=== PATIENT | male | born 1965 | race Caucasian/White ===

== ENCOUNTER 2017-01-28 07:23 | Day surgery (SDC) | payer OTHER ==
--- NOTE | 2017-01-18 16:23 | HP ---
CC: Dr[facility]; Dr. Shrestha at [facility]. PREOPERATIVE HISTORY AND PHYSICAL: DATE OF ADMISSION: This patient is scheduled for same day surgery admission by Dr. Palomo on 01/28/17. DATE OF PREOPERATIVE HISTORY AND PHYSICAL EXAMINATION: 01/18/17. ATTENDING SURGEON: Dr. Donato Palomo, (dictated by Nancy Headley NP). CHIEF COMPLAINT: Left inguinal hernia. HISTORY OF PRESENT ILLNESS: The patient is a 51-year-old obese male evaluated by Dr. Palomo for a longstanding left inguinal hernia. The patient had seen Dr. Tsang in the fall of 2015, but requi red cardiac evaluation which included a cardiac catheterization which was normal. He has now been c leared medically and is ready for surgery. The patient never noted a bulge in the left groin, but h as had a persistent left groin discomfort. Dr. Palomo ordered an ultrasound which did not reveal any testicular abnormalities, but the findings were consistent with left inguinal hernia extending towards the scrotum. The patient denies any nausea or vomiting or change in bladder or bowel habits. Dr. Palomo has examined the patient and notes a fullness in the left groin and left hemiscrotum just superior to the testicle that is nontender and nonreducible; the right groin has a well- heale d incision status post open right inguinal hernia repair many years ago. Dr. Palomo has discusse d the findings with the patient and has recommended open repair of the left inguinal hernia with [facility] h as a same day surgery procedure and has described the nature of the surgical procedure, the ration delaney for the procedure, the relevant risks and benefits and today I reviewed the expected postoperati ve care and recovery. The patient has had a chance to ask questions and stated that he understands the information and is satisfied with the answers given to his questions. He will sign surgical con sent on the day of surgery. PAST MEDICAL HISTORY: Significant for type 2 diabetes; obesity; COPD; hypertension; obstructive sle ep apnea requiring CPAP; GERD; chronic back, bilateral arms and bilateral leg pain and he is followe d in the pain clinic. PAST SURGICAL HISTORY: Open right inguinal hernia repair around 1990, appendectomy around 02/27 and was hospitalized for 3 weeks postoperatively. MEDICATIONS: 1. Glipizide 5 mg p.o. b.i.d. 2. Metformin extended release 500 mg 3 tablets daily. 3. Diltiazem ER 60 mg p.o. b.i.d. 4. Singulair 10 mg p.o. daily in the evening. 5. Gabapentin 300 mg 2 tablets 4 times a day. 6. Ventolin inhaler 1 to 2 puffs 4 times a day p.r.n. 7. Fluticasone inhaled 2 sprays daily into each nostril. 8. Senna laxative 1 tablet daily. 9. Wellbutrin XL 300 mg p.o. daily. 10. Triamterene/hydrochlorothiazide 37.5/25 p.o. daily. 11. Morphine sulfate 15 mg p.o. b.i.d. 12. Oxycodone/acetaminophen 10/325 mg 1 tablet p.o. 4 times a day. 13. Meloxicam 7.5 mg p.o. daily. ALLERGIES: No known drug allergies. FAMILY HISTORY: Mother alive and currently well, with a history of brain aneurysm. Father with a history of congestive heart failure. Sister alive with a history of what he thinks was kidne y cancer. Brother from sepsis. No known anesthesia complications, bleeding tendencies or clotting disorders in the family. SOCIAL HISTORY: He is and lives alone and is unemployed and is seeking disability. He is a former smoker and quit 2 years ago after a [id number] history. He denies the use of alcohol sin 2005 and denies the use of other substances. REVIEW OF SYSTEMS: Constitutional: No recent illnesses, no change in weight. Respiratory: Diagnos ed with sleep apnea and uses CPAP; is followed by Dr. Crump for COPD. No previous anesthesia compl ications. Cardiac: Denies any recent chest pain or chest pressure or palpitations. He underwent c ardiac catheterization by Dr. Gonzales, 06/30/16, and there was no significant coronary artery disease , ejection fraction 60%. He denies any history of deep vein thrombosis or pulmonary embolism. Alvarado rointestinal: No chronic constipation or diarrhea. No nausea or vomiting; he does have a history o f a bleeding duodenal ulcer in 1995 requiring blood transfusions and an admission to the intensive c are unit. No recurrence. Genitourinary: Denies dysuria. Musculoskeletal: He has chronic back mariam n, bilateral arm pain and bilateral leg pain and is followed at the pain clinic. Neurologic: No his tory of seizure disorder. Endocrine: Type 2 diabetes, fingerstick blood sugar typically around 118 to 130, but it has been as high as 200. Hemoglobin A1c 6.9. PHYSICAL EXAMINATION GENERAL SURVEY: The patient is a 51-year-old obese male, well developed, in no acute distress. VITAL SIGNS: Height 68 inches, weight 275 pounds, body mass index 41.8. Blood pressure 142/80, pul se 78 and regular, respiratory rate 18, temperature 98.7 tympanic. HEENT: Benign. NECK: Supple. No cervical lymphadenopathy. No thyromegaly. LUNGS: Breath sounds bilaterally clear and equal. HEART: Regular rate and rhythm. No murmurs or rubs appreciated. ABDOMEN: Active bowel sounds, soft, obese, nontender throughout. Well-healed lower midline incisio n and right inguinal incision. Inguinal exam as done by Dr. Palomo reveals a bulge in the left i nguinal region that extends down into the scrotum and is reducible lying in the supine position. No right inguinal hernia. No other obvious masses or ventral hernias. GENITALIA: Scrotum as examined by Dr. Palomo, no testicular masses. BACK: No CVA tenderness. EXTREMITIES: Warm without edema or skin ulceration. RECTAL: Exam deferred. NEUROLOGIC: Alert and oriented x3. Steady gait. SKIN: Warm, dry and intact. IMPRESSION: Left inguinal hernia. PLAN: Same day surgery admission to Dr. Palomo's service on 01/28/17 for open repair of left inguinal hernia with mesh. NANCY HEADLEY, DIRECTOR OF ONCOLOGY [id number]/[facility] #: [id number]
[~2017-01-28 07:23] MED LIST: Buffered Lidocaine 0.9% SYRIN* 5 ML/SYR SYRINGE INTRADERM ONE; Buffered Lidocaine 0.9% SYRIN* 5 ML/SYR SYRINGE ONE; Famotidine IV* 10 MG/ML 2 ML (20 mg) IV ONE; Famotidine IV* 10 MG/ML 2 ML (20 mg) ONE; Morphine INJ* 2 MG/ML 1 ML SYRINGE IV PRN; PROCHLORPERAZINE INJ 5 MG/ML 2 ML VIAL IV PRN; ceFAZolin 1 GM in Dextrose (*) 1 GM/50 ML BAG IVPB ONE; ceFAZolin 2 GM PREMIX(*) 2 GM/50 ML BAG IVPB ONE; oxyCODONE/Acetamin 5/325 MG* TAB PO PRN
[2017-01-28] MEDS ORDERED: KETAMINE HCL* 50 MG/ML 10 ML VIAL ONE (09:01)
[2017-01-28] MEDS ORDERED: fentaNYL* 50 MCG/ML 2 ML VIAL (100 MCG VIAL) ONE ×3 (09:01→11:56)
[2017-01-28] MEDS ORDERED: Midazolam* 1 MG/ML 5 ML VIAL (5 MG) ONE (09:01)
[2017-01-28] MEDS ORDERED: Lidocaine 1% INJ* 10 MG/ML 30 ML SDV ONE (09:17)
[2017-01-28] MEDS ORDERED: Bupivacaine 0.5% W/EPI SDV* 10 ML VIAL INJ ONE ×2 (09:17→11:06)
[2017-01-28] MEDS ORDERED: Ondansetron INJ* 2 MG/ML VIAL ONE (10:08)
[2017-01-28] MEDS ORDERED: Lidocaine 2% PF * 5 ML VIAL ONE (10:08)
[2017-01-28] MEDS ORDERED: Ketorolac INJ* 30 MG/ML 1 ML VIAL ONE (10:08)
[2017-01-28] MEDS ORDERED: Propofol* 10 MG/ML 20 ML BTL IV PUSH ONE (10:08)
[2017-01-28] MEDS ORDERED: PROCHLORPERAZINE INJ 5 MG/ML 2 ML VIAL ONE (10:08)
[2017-01-28] MEDS ORDERED: Metoprolol Tartrate IV* 1 MG/ML 5 ML VIAL ONE (11:09)
[2017-01-28] MEDS ORDERED: oxyCODONE/Acetamin 5/325 MG* TAB PO PRN (11:33)
[2017-01-28] MEDS ORDERED: hydrALAZINE IV* 20 MG/ML VIAL IV SLOW PU ONE (11:47)
[2017-01-28] MEDS ORDERED: hydrALAZINE IV* 20 MG/ML VIAL ONE (11:49)
[2017-01-28] MEDS ORDERED: oxyCODONE/Acetamin 5/325 MG* TAB ONE (11:56)
[2017-01-28] MEDS: fentaNYL* 50 MCG/ML 2 ML VIAL (100 MCG VIAL) IV PRN ×2 (11:56→12:05)
[2017-01-28 13:12] VITALS: BP 153/81
--- NOTE | 2017-01-29 06:28 | OP ---
CC: [facility] OPERATIVE REPORT: DATE OF OPERATION: 01/28/17 DATE OF : 65 SURGEON: Donato Palomo MD KAIAWHINA: SAMSON Dill ANESTHESIOLOGIST: Dr. Khan. ANESTHESIA: General with local. PRE-OP DIAGNOSIS: Left inguinal hernia. POST-OP DIAGNOSIS: Left indirect inguinal hernia. OPERATIVE PROCEDURE: Open repair with Covidien ProGrip mesh of a left indirect inguinal hernia. ESTIMATED BLOOD LOSS: Minimal. WOUND CLASSIFICATION: I. COMPLICATIONS: None. DRAINS: None. SPECIMENS: None. FINDINGS: Patient had a large indirect inguinal hernia with a large lipoma extending through the in ternal ring. This extended down into the upper portion of the scrotum. There was no evidence of an indirect hernia sac. The direct space appeared to be intact. DESCRIPTION OF PROCEDURE: Written informed consent was obtained, the left groin was marked with ind elible ink and preoperative antibiotics were administered. The patient was taken to the operating r oom and placed in the supine position. Sequential compression devices and a warming blanket were gregory lied. General anesthesia was administered, and the right groin and lower abdomen were prepped and d raped in the usual sterile fashion. Time-out verification was completed. 0.25% Marcaine mixed with 1% lidocaine was then infiltrated in the left groin. An oblique incision several fingerbreadths above the inguinal crease was made, carried down through Romain's fascia. It should be noted that due to the patient's morbid obesity, this incision was somewhat longer than th e usual standard inguinal repair. Romain's fascia was divided. We were able to identify the externa l oblique aponeurosis down to the external ring. The aponeurosis was opened in the direction of its fibers and there appeared to be a rather large spermatic cord with what appeared to be containing h ernia or fat at a minimum. This spermatic cord was then encircled with 1/4-inch Hagaman drain at th e pubic tubercle. We were then able to dissect the cord off the direct space floor. The direct space appeared to be i ntact without evidence of hernia. Once we had freed up the cord structures back up in the internal ring, it was obvious that there was quite large amount of fat in the cord, and we were able to ident kim a rather large lipoma that extended down into the upper part of the scrotum and this was separat ed from the structures of the cord with care to prevent injury to these vital structures up into the internal ring, which was somewhat patulous. Once I had assured myself that this was simply a lipom a, this was then divided and ligated with 0 Polysorb suture, and the lipoma was transected. I did n ot send this for specimen. Next, a very careful evaluation of the spermatic cord was performed. I identified no indirect ingui nal hernia sac, however, but I feel what was felt on exam and what was causing his symptoms was the large lipoma protruding through the internal ring. Likewise, there was no direct space hernia. Next, the ProGrip Covidien mesh was then inserted and sutured to the pubic tubercle medially, the co njoined tendon superiorly and the musculature laterally with interrupted 0 Polysorb suture. It was secured to the inguinal ligament inferiorly with a running 0 Polysorb suture. The mesh sat nicely without wrinkling or tension and reconstructed the internal ring nicely. Hemostasis was assured. Additional Marcaine was infiltrated. The external oblique aponeurosis was then closed with running 0 Polysorb suture. The Romain's fascia was closed with interrupted 3-0 Sacha ysorb suture. The skin was approximated with subcuticular 4-0 Polysorb suture[address] Steri-Strips and st erile dressings were applied. The patient tolerated the procedure well and was taken to the recovery room in stable condition. [id number]/[facility] #: [id number]
== END 2017-01-28 13:14 | disposition home or self-care (01) ==
LOC: OR 07:23
PROVIDERS: ATTEND Surgery
DX: K40.90 Unilateral inguinal hernia, without obstruction or gangrene, not specified as recurrent (principal); E11.9 Type 2 diabetes mellitus without complications; Z79.84 Long term (current) use of oral hypoglycemic drugs; J44.9 Chronic obstructive pulmonary disease, unspecified; I10 Essential (primary) hypertension; G47.33 Obstructive sleep apnea (adult) (pediatric); E66.9 Obesity, unspecified
CPT/HCPCS: A9270-GY; J0360; J0690; J0780; J1885; J2001; J2250; J2405; J2704; J3010

== ENCOUNTER → 2017-01-31 08:55 | Emergency (ER) | payer OTHER ==
[~2017-01-31 08:55] MED LIST changes: -Buffered Lidocaine 0.9% SYRIN* 5 ML/SYR SYRINGE INTRADERM ONE; -Buffered Lidocaine 0.9% SYRIN* 5 ML/SYR SYRINGE ONE; -Famotidine IV* 10 MG/ML 2 ML (20 mg) IV ONE; -Famotidine IV* 10 MG/ML 2 ML (20 mg) ONE; +Ketorolac INJ* 30 MG/ML 1 ML VIAL IV PUSH ONE; -Morphine INJ* 2 MG/ML 1 ML SYRINGE IV PRN; +Morphine INJ* 4 MG/ML 1 ML SYRINGE IV ONE; +Morphine INJ* 4 MG/ML 1 ML SYRINGE SUBCUT ONE; +Ondansetron INJ* 2 MG/ML VIAL IV ONE; -PROCHLORPERAZINE INJ 5 MG/ML 2 ML VIAL IV PRN; -ceFAZolin 1 GM in Dextrose (*) 1 GM/50 ML BAG IVPB ONE; -ceFAZolin 2 GM PREMIX(*) 2 GM/50 ML BAG IVPB ONE; -oxyCODONE/Acetamin 5/325 MG* TAB PO PRN
[2017-01-31 11:26] VITALS: BP 159/83
--- NOTE | 2017-02-01 16:25 | CONS ---
EMERGENCY ROOM CONSULTATION REPORT: DATE OF CONSULT: 01/31/17 LOCATION: The patient was seen in the emergency room. REFERRING PROVIDER: Dr. Jones, emergency room physician. REASON FOR CONSULT: Discomfort at recent site of the left inguinal hernia repair. HISTORY OF PRESENT ILLNESS: Mr. Sekou Berry is a 51-year-old gentleman well known to me who just underwent an open repair of a left inguinal hernia on 01/28/17. This was done as an outpatient. He was discharged to home. He takes oral morphine as well as Percocet for chronic low back pain. He was not given additional narcotic for pain. He had been doing well at home. Apparently, he developed increased discomfort last night. He had called the office and was to be seen for followup. Today, however, the pain was increasing , he presented to the emergency room and was seen by Dr. Jones. Surgical consultation was obtained. He further states he has had no fevers. He has been eating well. He has been voiding without difficulty. His bowels have been working. He has had no nausea , vomiting, shakes, or chills. He has noted no abdominal distention. PHYSICAL EXAM: He is afebrile. Heart rate is in the 90s. General: He is a morbidly obese male, in no apparent distress. He is awake, alert, and conversive. His abdomen is soft, nondistended. He has normoactive bowel sounds throughout. He has left groin leak incision. This appeared to be intact. There was some skin irritation from this tape and some ecchymosis medial. There is minimal scrotal swelling. No evidence of hernia recurrence. There is no evidence of abscess, cellulitis, or infection. IMPRESSION AND PLAN: Status post repair of a left inguinal hernia in a morbidly obese gentleman with chronic pain, already he had narcotics. I do not believe that there is an infection, recurrence or acute surgical complication at play here. I discussed this with him and I assured him that he is recovering well and there is no evidence of recurrence, which I think he was quite concerned about today. We will give him some intravenous morphine as well as some IV Toradol as he has not taken Motrin over the last 12 hours. He will be discharged home from the emergency room. He has an appointment to see us in the office next week, but he is instructed to call if should he develop any problems here or have any questions in the meantime. [id number]/[facility] #: [id number] MARY
--- NOTE | 2017-02-01 19:09 | ED ---
Galileo Greer Alfonso, scribed for Ramesh Jones MD on 01/31/17 at 0920 . GI/ HPI - HPI Summary HPI Summary: This patient is a 51 year old M presenting to [facility] accompanied by female with a chief complaint of left testicular pain since this morning. The CC is described as sore. Pt had an inguinal hernia repair three days ago. Pt rates the pain 6/10 in severity. Symptoms aggravated and alleviated by nothing. Pt denies fever, and chills. PMHx of DM and HTN. - History of Current Complaint Chief Complaint: EDAbdPain Time Seen by Provider: 01/31/17 09:09 Stated Complaint: LT SIDED GROIN PAIN Hx Obtained From: Patient Onset/Duration: Started Hours Ago - This morning, Still Present Timing: Constant Severity: Moderate Current Severity: Moderate Pain Intensity: 6 Additional Locations for Males: Testicles - Left Pain Characteristics: Other: - Sore Associated Signs and Symptoms: Negative: Fever, Chills - Additional Pertinent History Primary Care Physician: JOAQUÍN - Allergy/Home Medications Allergies/Adverse Reactions: Allergies Allergy/AdvReac Type Severity Reaction Status Date / Time No Known Allergies Allergy Verified 01/28/17 07:36 PMH/Surg Hx/FS Hx/Imm Hx Endocrine/Hematology History: Reports: Hx Diabetes - TYPE II, controlled with medication Cardiovascular History: Reports: Hx Angina, Hx Hypertension - controlled with medication, Other Cardiovascular Problems/Disorders Denies: Hx Coronary Artery Disease, Hx Hypercholesterolemia, Hx Myocardial Infarction, Hx Pacemaker/ICD, Hx Valvular Heart Disease Respiratory History: Reports: Hx Asthma - uses prn inhaler, Hx Chronic Bronchitis, Hx Chronic Obstructive Pulmonary Disease (COPD), Hx Pneumonia, Hx Sleep Apnea GI History: Reports: Hx Gastroesophageal Reflux Disease, Hx Hiatal Hernia - hx of,, Hx Ulcer - hx of, "yrs ago", bleeding ulcer, Musculoskeletal History: Reports: Hx Back Problems, Hx Tendonitis - wrists, elbows Sensory History: Reports: Hx Contacts or Glasses - wears glasses, Hx Hearing Problem Denies: Hx Cataracts, Hx Glaucoma, Hx Hearing Aid - will be getting these February 06, 2017 Opthamlomology History: Reports: Hx Contacts or Glasses - wears glasses Denies: Hx Cataracts, Hx Glaucoma Neurological History: Reports: Hx Migraine - hx of, last migraine over 10 yrs ago, Hx Nerve Disease - Hx of Polyneuropathy, Other Neuro Impairments/Disorders - recent hospitalization for viral menigitis 2015 Psychiatric History: Reports: Hx Depression - controlled with medication Denies: Hx Panic Disorder - Surgical History Surgery Procedure, Year, and Place: HERNIA REPAIR, 1990. APPENDECTOMY(BURST APPENDIX WITH FOLLOW UP THAT CONTAMINATED PERITONIUM) . cardiac cath 2015. right wrist cyst removed . Hx Anesthesia Reactions: No Infectious Disease History: Reports: Hx Shingles, History Other Infectious Disease - Meningitis Denies: Traveled Outside the [place] in Last 30 Days - Family History Known Family History: Positive: Cardiac Disease - Social History Alcohol Use: None Alcohol Amount: QUIT IN 2005 Substance Use Type: Reports: None Substance Use Comment - Amount & Last Used: OXYCODONE Hx Tobacco Use: Yes Smoking Status (MU): Former Smoker Type: Cigarettes Amount Used/How Often: smoked for approx 40 yrs, 2 ppd Review of Systems Negative: Fever, Chills Positive: other - Positive left testicular pain All Other Systems Reviewed And Are Negative: Yes Physical Exam - Summary Physical Exam Summary: VITAL SIGNS: Reviewed. GENERAL: Patient is a well-developed and nourished male who is lying comfortable in the stretcher. Patient is not in any acute respiratory distress. HEAD AND FACE: Normocephalic and atraumatic. EYES: PERRLA, EOMI x 2, No injected conjunctiva. EARS: Hearing grossly intact. Ear canals and tympanic membranes are WNL. MOUTH: Oropharynx within normal limits. NECK: Supple, trachea is midline, no adenopathy, no JVD. CHEST: Symmetric, no tenderness at palpation LUNGS: Clear to auscultation bilaterally. No wheezing or crackles. CVS: RRR, S1 and S2 present, no murmurs or gallops appreciated. ABDOMEN: Soft, non-tender. No signs of distention. Positive bowel sounds. No rebound no guarding, and no masses palpated. No abdominal bruit or pulsations. Surgical incision has erythema but no discharge. EXTREMITIES: FROM in all major joints, no edema, no cyanosis or clubbing. NEURO: Alert and oriented x 3. No acute neurological deficits. Speech is normal. SKIN: Dry and warm : Circumcised penis, both testicles are descended. Left testicular tenderness. No masses are appreciated. Positive cremasteric reflex. Triage Information Reviewed: Yes Vital Signs On Initial Exam: Initial Vitals Temp Pulse Resp BP Pulse Ox 98.5 F 98 24 155/86 95 01/31/17 09:01 01/31/17 09:01 01/31/17 09:01 01/31/17 09:01 01/31/17 09:01 Vital Signs Reviewed: Yes Diagnostics - Vital Signs Vital Signs Temp Pulse Resp BP Pulse Ox 01/31/17 09:01 98.5 F 98 24 155/86 95 - Laboratory Lab Statement: Any lab studies that have been ordered have been reviewed, and results considered in the medical decision making process. GIGU Course/Dx - Course Course Of Treatment: This patient is a 51 year old M presenting to [facility] accompanied by female with a chief complaint of left testicular pain since this morning. The CC is described as sore. Pt had an inguinal hernia repair three days ago. Pt rates the pain 6/10 in severity. Symptoms aggravated and alleviated by nothing. Pt denies fever, and chills. PMHx of DM and HTN. Assessment/Plan: In the ED course patient complained of left testicular and inguinal pain. Physical exam did not reveal any signs of infection and no masses were palpated in the testicular area. I consulted Dr. Palomo (Surgeon ) who states he will see patient in the ED. Dr. Palomo recommended the patient should be discharged with follow up at his office, does not require any testing at this time, and should receive medication for pain. He was given morphine and Toradol for the pain. Patient will be discharged home with follow up with Dr. Palomo. Patient is hemodynamically stable and A&Ox3. All questions were answered at patient satisfaction. There were no further complaints or concerns. Lung exam before discharge: CTA B/L. Good air exchange. No wheezing or crackles heard. CVS: S1 and S2 present. No murmurs appreciated. Patient is alert and oriented x 3. Patient is hemodynamically stable. Patient will be discharged home with follow up PCP in the next 2-3 days - Diagnoses Differential Diagnoses - Male: Constipation - Inguinal hernia, Inguinal infection Provider Diagnoses: Inguinal pain s/p herniorrhaphy - Physician Notifications Discussed Care Of Patient With: Donato Palomo Time Discussed With Above Provider: 09:50 Instructed by Provider To: Other - Consulted Dr. Palomo (Surgeon) who states he will see patient in the ED. Spoke with Dr. Palomo at 1019 after he saw the patient in the ED. Dr. Palomo recommended the patient should be discharged with follow up at his office and medication for pain. Discharge - Discharge Plan Condition: Stable Disposition: HOME Patient Education Materials: Testicle Pain (ED) Referrals: Enrique Shrestha MD [Primary Care Provider] - 3 Days Donato Palomo MD [Medical Doctor] - 3 Days The documentation as recorded by the Galileo rosas Alfonso accurately reflects the service I personally performed and the decisions made by me, Ramesh Jones MD.
== END | disposition home or self-care (01) ==
LOC: ED 08:55
DX: R10.30 Lower abdominal pain, unspecified (principal); Z98.890 Other specified postprocedural states; I10 Essential (primary) hypertension; E11.9 Type 2 diabetes mellitus without complications; K21.9 Gastro-esophageal reflux disease without esophagitis; F32.9 Major depressive disorder, single episode, unspecified; M54.5 Low back pain; G89.29 Other chronic pain
CPT/HCPCS: 96372; 96374; 96375; 99283; J1885; J2270; J2405

== ENCOUNTER 2017-07-20 21:39 | Observation (INO) | payer OTHER ==
--- OUTSIDE RECORDS SUMMARY | 2017-07-20 22:10 | XMS REPORT ---
:1965 External Reference #:[id number] Author Organization [facility]ly [facility], Later [facility] Address [address] [place] [id number] Phone [phone] Care Team Providers Name Role Phone Enrique Shrestha MD Care Team Information Dental Aide Unavailable Payers Type Date Identification Numbers Payment Provider Subscriber Commercial Policy Number: [id number] [facility] Pato Shah Berry PayID: [id number] [place] [address] Problems Date Description Provider Status Onset: 04/04/2015 Essential hypertension Enrique Shrestha MD Active Onset: 04/04/2015 Obesity Enrique Shrestha MD Active Onset: 04/04/2015 Erectile dysfunction due to general Enrique Shrestha MD Active medical condition Onset: 05/04/2015 Gastroesophageal reflux disease Enrique Shrestha MD Active Note: Had a EGD in 2014, records from [place] Onset: 06/06/2016 Dyspnea on exertion Enrique Shrestha MD Active Family History Date Family Member(s) Problem(s) Comments Father CHF Father Sapho syndrome First Brother bacterial endocarditis Social History Type Date Description Comments Marital Status Single Lives With Alone Occupation Unemployed Cigarette Use current cigarette smoker 3-4 cigs/day. Has cut down from 2 packs. Smoked ~50 pack years so far. Cigarette Use Former Cigarette Smoker ETOH Use Has consumed alcohol in the past Recreational Drug Use Never Used Drugs Smoking Patient is a former smoker Allergies, Adverse Reactions, Alerts Date Description Reaction Status Severity Comments 07/17/2017 NKDA active Medications Medication Date Status Form Strength Qnty SIG Indications Ordering Provider Miralax 07/17 Active Powder 3350NF 510un 1 capful in R10.9 Enrique /2018 its 8 oz of [place] water, MD anita to 8 doses in an afternoon. Breo Ellipta 04/23 Active Aerosol 200-25mcg 60uni 1 puff by J44.9 /Inh ts mouth 2 [place] times a , daily for copd Glipizide 11/08 Active Tablets 5mg 60tab 1 tab by E11.65 s mouth twice [place] a day. MD start with once at breakfast for the first week. Metformin HCL ER 10/24 Active Tablets ER 500mg 90tab 3 tab by 24HR s mouth daily MD Henrietta Onetouch Ultra 2 10/22 Active Kit w/Device 1unit use to do s finger [place] sticks , Onekarineuch Ultra 10/22 Active Strips 100un use for its testing [place] blood sugar , twice a day or as needed Onetouch 10/22 Active Misc 100un for fs Enrique Ultrasof its glucose [place] Lancets once daily , Diltiazem HCL ER 06/22 Active Caps ER 60mg 60cap take 1 I10 12HR s capsule by [place] mouth 2 MD times per day for high blood pressure Singulair 06/01 Active Tablets 10mg 30tab take 1 J44.9 s tablet by [place] mouth daily , in the evening for asthma Spiriva Respimat 01/18 Active Aerosol 2.5mcg/Ac 4gm inhale 2 t puffs by [place] mouth daily , for chronic obstructive lung disease Gabapentin 09/25 Active Capsules 300mg 180ca 2 tab by ps mouth three [place] times a day , Ventolin HFA 09/15 Active Aerosol 108(90Bas 2unit 1-2 puffs J44.9 e) s four times [place] mcg/Act a day as MD needed Fluticasone 09/08 Active Suspension 50mcg/Act 1unit inhale 2 J01.90 Enrique Propionate s sprays into [place] nostril MD daily in each nostril Senna Laxative 08/29 Active Tablets 8.6mg 30tab 1 tab by M5Du.5 Enrique s mouth daily MD Henrietta Wellbutrin XL 08/29 Active Tablets ER 300mg 30tab 1 by mouth M54.5 Enrique 24HR s every day MD [place]etta Meloxicam 07/18 Active Tablets 7.5mg 30tab 1 tab by M54.5 Enrique s mouth daily MD Henrietta Triamterene/Hydr 04/04 Active Capsules 37.5-25mg 30cap 1 tab by I10 Enrique ochlorothiazide s mouth daily MD Henrietta Spacer, 04/04 Active R06.02 Enrique Pediatric MD Henrietta Morphine Sulfate Active Tablets 15mg 1 tab by Unknown /0000 mouth twice a day Oxycodone-Acetam Active Tablets 10-325mg 1 tab by Unknown inophen /0000 mouth four times a day Sulfasalazine Active Tablets DR 500mg 1 by mouth Unknown /0000 4x a day. Bactrim DS 04/17 Hx Tablets 800-160mg 10tab take 1 L60.0 s tablet by [place] - mouth every , 07/17 12 hours /2017 for 5 days Metformin HCL 10/18 Hx Tablets 500mg 60tab take 1 E11.65 s tablet by [place] - mouth two , 12/24 times daily Nitrostat 06/22 Hx Tablets Sub 0.4mg 30tab place one I10 s tablet Henrietta - under the MD 07/18 every 5 minutes for up to 3 doses as needed for chest pain. ED if persistent. Symbicort 05/30 Hx Aerosol 160-4.5mc 12gm inhale 2 J44.9 g/Act puffs by [place] - mouth 2 MD 04/23 times per day for chronic obstructive lung disease Tudorza Pressair 01/19 Hx Aerosol 400mcg/Ac 1unit inhale one t s puff by [place] - mouth twice , 04/04 a day Serevent Diskus 01/12 Hx Aerosol 50mcg/Dos 56uni inhale 1 Enrique e ts puff by [place] - mouth two , 01/18 times daily Singulair 11/27 Hx Tablets 10mg 30tab take 1 J44.9 Enrique s tablet by [place] - mouth daily , 05/30 in the evening for asthma Qvar 09/15 Hx Aerosol 40mcg/Act 2unit 1 puff J44.9 Shawnti s twice a day Emy Zee, - RESIDENTIAL [employer] 06/22 Amoxicillin 09/08 Hx Capsules 500mg 30cap take 1 J01.90 Enrique s capsule by [place] - mouth 3 , 06/22 times day for 10 days for infection Gabapentin 08/29 Hx Capsules 300mg 90cap 1 tab by Enrique s mouth three [place] - times a day , 09/25 Formoterol 08/12 Hx Powder 60uni 1 capsule Enrique ts twice a day [place] - , 01/12 Prednisone 08/12 Hx Tablets 50mg 3tabs 1 tab by Enrique mouth daily [place] - for 3 days , 01/03 Trazodone HCL 08/12 Hx Tablets 50mg 90tab 1 tab by M54.5 Enrique s mouth every [place] - night , 04/04 Ventolin HFA 08/09 Hx Aerosol 108(90Bas 2unit 1-2 puffs e) s four times [place] - mcg/Act a day as , 06/22 needed Senna Laxative 07/18 Hx Tablets 8.6mg 30tab 1 tab by M54.5 Enrique s mouth daily [place] - MD 08/12 Wellbutrin SR 07/18 Hx Tablets ER 150mg 60tab take one M54.5 Enrique 12HR s tablet by [place] - mouth twice , 08/29 a Oxycodone-Acetam 05/04 Hx Tablets 10-325mg 60tab 1 tab by Enrique inophen s mouth two [place] - times a day , 05/30 as needed /2015 Lidocaine 05/04 Hx Patches 5% 30uni 1 apply to ts affected [place] - area daily , 08/12 Percocet 04/13 Hx Tablets 5-325mg 30tab 1 tab by M54.5 Enrique s mouth three [place] - times a day , 08/12 as needed /2015 Nicotrol 04/13 Hx Inhaler 10mg 1unit 1 puff four Z72.0 Enrique s times a day [place] - as needed. , 08/12 Please /2015 supply starter kit. Amlodipine 04/06 Hx Tablets 5mg 30tab tab by Enrique Besylate s mouth daily [place] - , 06/22 Cyclobenzaprine 04/06 Hx Tablets 10mg 45tab 1 tab by Enrique HCL s mouth three [place] - times a day , 08/12 Albuterol HFA 04/04 Hx 90mcg/Inh 2unit 2 puffs R06.02 Enrique s four times [place] - a day as , 08/12 needed /2015 Qvar 00/00 Hx R06.02 Unknown /0000 - 08/12 Viagra 00/00 Hx Unknown /0000 - 08/12 Methocarbamol 0000 Hx Tablets 750mg 1 tab by Unknown /0000 mouth twice - a day 12/24 Medications Administered in Office Medication Date Status Form Strength Qnty SIG Indications Ordering Provider Injection Administered Injection Enrique Ketorolac 016 Henrietta Tromethamine Per 15 MG (Toradol) Immunizations CPT Code Status Date Vaccine Lot # [id number] Given 12/24/2016 Hep B Vaccine Adult, 3 Dose age >20 yrs [id number] Given 11/08/2016 Pneumovax 23 (PPSV23) 65+ years or high risk 2 to [id number] 64 year old [address] Refused 10/04/2016 Influenza Virus Vaccine, 3 Yrs And Above Vital Signs Date Vital Result Comment 07/17/2017 Weight 270.00 lb Weight in kg's 122.472 BP Systolic 140 mmHg BP Diastolic 88 mmHg Heart Rate 88 /min Body Temperature 98.9 F Respiratory Rate 16 /min 04/17/2017 Weight 272.00 lb Weight in kg's 123.379 BP Systolic 158 mmHg BP Diastolic 88 mmHg Heart Rate 88 /min Body Temperature 99.1 F Respiratory Rate 22 /min O2 % BldC Oximetry 97 % 12/24/2016 Weight 274.00 lb Weight in kg's 124.286 BP Systolic 136 mmHg BP Diastolic 70 mmHg Heart Rate 84 /min Body Temperature 97.7 F Respiratory Rate 16 /min 11/08/2016 Weight 268.00 lb Weight in kg's 121.565 BP Systolic 130 mmHg BP Diastolic 80 mmHg Heart Rate 78 /min Body Temperature 97.0 F Respiratory Rate 16 /min 10/18/2016 Weight 273.00 lb Weight in kg's 123.833 BP Systolic 146 mmHg BP Diastolic 86 mmHg Heart Rate 88 /min Body Temperature 97.9 F Respiratory Rate 16 /min O2 % BldC Oximetry 97 % 10/04/2016 Weight 268.00 lb Weight in kg's 121.565 BP Systolic 140 mmHg BP Diastolic 77 mmHg Heart Rate 72 /min 07/18/2016 Weight 272.00 lb Weight in kg's 123.379 BP Systolic 142 mmHg BP Diastolic 88 mmHg Heart Rate 86 /min Body Temperature 98.2 F Respiratory Rate 18 /min O2 % BldC Oximetry 98 % 06/22/2016 Weight 271.00 lb Weight in kg's 122.926 BP Systolic 126 mmHg BP Diastolic 60 mmHg Heart Rate 83 /min Body Temperature 97.4 F Respiratory Rate 20 /min O2 % BldC Oximetry 98 % 05/30/2016 Weight 267.00 lb Weight in kg's 121.111 BP Systolic 130 mmHg BP Diastolic 80 mmHg Heart Rate 96 /min O2 % BldC Oximetry 97 % 04/24/2016 Weight 266.00 lb Weight in kg's 120.658 BP Systolic 130 mmHg BP Diastolic 90 mmHg Heart Rate 68 /min Body Temperature 98.8 F percocet at 1 Respiratory Rate 16 /min 04/04/2016 Weight 265.00 lb Weight in kg's 120.204 BP Systolic 158 mmHg BP Diastolic 86 mmHg Heart Rate 92 /min Body Temperature 98.1 F Respiratory Rate 18 /min 02/20/2016 Weight 261.00 lb Weight in kg's 118.390 BP Systolic 132 mmHg BP Diastolic 78 mmHg Heart Rate 68 /min Body Temperature 98.8 F Respiratory Rate 20 /min 02/06/2016 Weight 261.00 lb Weight in kg's 118.390 BP Systolic 120 mmHg BP Diastolic 79 mmHg Heart Rate 88 /min 01/04/2016 Weight 260.00 lb Weight in kg's 117.936 BP Systolic 134 mmHg BP Diastolic 80 mmHg Heart Rate 81 /min 11/28/2015 Weight 262.00 lb Weight in kg's 118.843 BP Systolic 132 mmHg BP Diastolic 88 mmHg Heart Rate 88 /min Body Temperature 98.9 F O2 % BldC Oximetry 99 % 09/26/2015 Weight 253.00 lb Weight in kg's 114.761 BP Systolic 134 mmHg BP Diastolic 82 mmHg Heart Rate 86 /min 09/16/2015 Weight 248.00 lb with shoes Weight in kg's 112.493 BP Systolic 124 mmHg BP Diastolic 82 mmHg Heart Rate 92 /min Body Temperature 97.3 F 09/08/2015 Weight 254.00 lb Weight in kg's 115.214 BP Systolic 120 mmHg BP Diastolic 74 mmHg Heart Rate 100 /min Body Temperature 98.6 F Motrin And Oxy Today O2 % BldC Oximetry 96 % 08/29/2015 Weight 252.00 lb Weight in kg's 114.307 BP Systolic 140 mmHg BP Diastolic 82 mmHg Heart Rate 92 /min 08/12/2015 Weight 252.00 lb Weight in kg's 114.307 BP Systolic 136 mmHg BP Diastolic 80 mmHg Heart Rate 90 /min Body Temperature 97.8 F O2 % BldC Oximetry 98 % 07/18/2015 Weight 251.00 lb Weight in kg's 113.854 BP Systolic 120 mmHg BP Diastolic 80 mmHg Heart Rate 80 /min Body Temperature 99.0 F 06/08/2015 Weight 251.00 lb Weight in kg's 113.854 BP Systolic 134 mmHg BP Diastolic 68 mmHg Heart Rate 88 /min Body Temperature 98.2 F 06/02/2015 Weight 248.00 lb Weight in kg's 112.493 BP Systolic 114 mmHg BP Diastolic 78 mmHg Heart Rate 88 /min Body Temperature 98.3 F 05/18/2015 Weight 247.00 lb Weight in kg's 112.039 BP Systolic 120 mmHg BP Diastolic 76 mmHg Heart Rate 96 /min Body Temperature 98.7 F 05/04/2015 Weight 246.00 lb Weight in kg's 111.586 BP Systolic 136 mmHg BP Diastolic 84 mmHg Heart Rate 108 /min Body Temperature 98.7 F 04/13/2015 Weight 247.00 lb Weight in kg's 112.039 BP Systolic 112 mmHg BP Diastolic 74 mmHg Heart Rate 108 /min 04/06/2015 Weight 241.00 lb Weight in kg's 109.318 BP Systolic 138 mmHg BP Diastolic 78 mmHg Heart Rate 96 /min 04/04/2015 Weight 242.00 lb Weight in kg's 109.771 BP Systolic 140 mmHg BP Diastolic 90 mmHg Heart Rate 76 /min Height 68.5 inches 5'8.50" BMI (Body Mass Index) 36.3 kg/m2 Results Test Date Test Result H/L Range Note Laboratory test 07/17/2017 Hemoglobin A1c <pending> finding (Glyco HGB) Comp Metabolic Panel 07/12/2017 Sodium 134 mmol/L 133-145 Potassium 3.3 mmol/L Low 3.5-5.0 Chloride 97 mmol/L Low 101-111 Co2 Carbon Dioxide 27 mmol/L 22-32 Anion Gap 10 mmol/L 2-11 Glucose 213 mg/dL High 70-100 Blood Urea Nitrogen 8 mg/dL 6-24 Creatinine 0.92 mg/dL 0.67-1.17 BUN/Creatinine Ratio 8.7 8-20 Calcium 9.4 mg/dL 8.6-10.3 Total Protein 7.0 g/dL 6.4-8.9 Albumin 4.0 g/dL 3.2-5.2 Globulin 3.0 g/dL 2-4 Albumin/Globulin Ratio 1.3 1-3 Total Bilirubin 0.80 mg/dL 0.2-1.0 Alkaline Phosphatase 80 U/L 34-104 Alt 31 U/L 7-52 Ast 44 U/L High 13-39 Egfr Non- 86.7 >60 Egfr 111.5 >60 1 Laboratory test finding 07/12/2017 C Reactive Protein 11.35 mg/L High &lt ; 5.00 2 CBC Auto Diff 07/12/2017 White Blood Count 10.1 10^3/uL 3.5-10.8 Red Blood Count 4.61 10^6/uL 4.0-5.4 Hemoglobin 14.3 g/dL 14.0-18.0 Hematocrit 42 % 42-52 Mean Corpuscular Volume 91 fL 80-94 Mean Corpuscular Hemoglobin 31 pg 27-31 Mean Corpuscular HGB Conc 34 g/dL 31-36 Red Cell Distribution Width 14 % 10.5-15 Platelet Count 152 10^3/uL 150-450 Mean Platelet Volume 7 um3 Low 7.4-10.4 Abs Neutrophils 6.3 10^3/uL 1.5-7.7 Abs Lymphocytes 2.4 10^3/uL 1.0-4.8 Abs Monocytes 1.0 10^3/uL High 0-0.8 Abs Eosinophils 0.2 10^3/uL 0-0.6 Abs Basophils 0 10^3/uL 0-0.2 Abs Nucleated RBC 0.01 10^3/uL Granulocyte % 62.7 % 38-83 Lymphocyte % 24.3 % Low 25-47 Monocyte % 10.2 % High 1-9 Eosinophil % 2.5 % 0-6 Basophil % 0.3 % 0-2 Nucleated Red Blood Cells % 0.1 Laboratory test finding 07/12/2017 Erythrocyte Sed Rate 30 mm/Hr High 0- 20 3 Comp Metabolic Panel 06/07/2017 Sodium 132 mmol/L Low 133-145 Potassium 3.8 mmol/L 3.5-5.0 Chloride 97 mmol/L Low 101-111 Co2 Carbon Dioxide 28 mmol/L 22-32 Anion Gap 7 mmol/L 2-11 Glucose 226 mg/dL High 70-100 Blood Urea Nitrogen 12 mg/dL 6-24 Creatinine 0.87 mg/dL 0.67-1.17 BUN/Creatinine Ratio 13.8 8-20 Calcium 9.4 mg/dL 8.6-10.3 Total Protein 7.2 g/dL 6.4-8.9 Albumin 4.0 g/dL 3.2-5.2 Globulin 3.2 g/dL 2-4 Albumin/Globulin Ratio 1.3 1-3 Total Bilirubin 0.70 mg/dL 0.2-1.0 Alkaline Phosphatase 109 U/L High 34-104 Alt 38 U/L 7-52 Ast 48 U/L High 13-39 Egfr Non- 92.5 >60 Egfr 119.0 >60 4 Laboratory test finding 06/07/2017 C Reactive Protein 10.30 mg/L High &lt ; 5.00 5 CBC Auto Diff 06/07/2017 White Blood Count 8.7 10^3/uL 3.5-10.8 Red Blood Count 4.56 10^6/uL 4.0-5.4 Hemoglobin 14.4 g/dL 14.0-18.0 Hematocrit 42 % 42-52 Mean Corpuscular Volume 91 fL 80-94 Mean Corpuscular Hemoglobin 31 pg 27-31 Mean Corpuscular HGB Conc 35 g/dL 31-36 Red Cell Distribution Width 13 % 10.5-15 Platelet Count 152 10^3/uL 150-450 Mean Platelet Volume 8 um3 7.4-10.4 Abs Neutrophils 5.7 10^3/uL 1.5-7.7 Abs Lymphocytes 1.9 10^3/uL 1.0-4.8 Abs Monocytes 0.8 10^3/uL 0-0.8 Abs Eosinophils 0.2 10^3/uL 0-0.6 Abs Basophils 0 10^3/uL 0-0.2 Abs Nucleated RBC 0.01 10^3/uL Granulocyte % 65.4 % 38-83 Lymphocyte % 22.3 % Low 25-47 Monocyte % 9.0 % 1-9 Eosinophil % 2.8 % 0-6 Basophil % 0.5 % 0-2 Nucleated Red Blood Cells % 0.2 Laboratory test finding 06/07/2017 Erythrocyte Sed Rate 38 mm/Hr High 0- 20 Laboratory test finding 01/28/2017 Point of Care Glucose 159 mg/dL High 74 -106 6 Laboratory test finding 01/28/2017 Point of Care Glucose 115 mg/dL High 74 -106 7 Basic Metabolic Panel 01/18/2017 Sodium 136 mmol/L 133-145 Potassium 4.0 mmol/L 3.5-5.0 Chloride 100 mmol/L Low 101-111 Co2 Carbon Dioxide 28 mmol/L 22-32 Anion Gap 8 mmol/L 2-11 Glucose 138 mg/dL High 70-100 Blood Urea Nitrogen 13 mg/dL 6-24 Creatinine 0.93 mg/dL 0.67-1.17 BUN/Creatinine Ratio 14.0 8-20 Calcium 9.5 mg/dL 8.6-10.3 Egfr Non- 85.7 >60 Egfr 110.2 >60 8 Laboratory test 01/16/2017 [place] Pylori Negative Negative 9 finding Antigen- Stool Laboratory test 12/24/2016 Hemoglobin A1c 6.9 % High Less than 6.0 10, 11 finding Urine Microalbumin 10/18/2016 Urine Creatinine 115.10 mg/dL 12 Random Ur Microalbumin (mg/L) < 15.0 mg/L 12 Urine Microalbumin/Creatinine TNP ug/mg <31 12, 13 Laboratory test 10/04/2016 Hemoglobin A1c 8.6 % High Less than 6.0 14, 15 finding Comp Metabolic Panel 10/04/2016 Sodium 136 mmol/L 133-145 14 Potassium 4.0 mmol/L 3.5-5.0 14 Chloride 98 mmol/L Low 101-111 14 Co2 Carbon Dioxide 30 mmol/L 22-32 14 Anion Gap 8 mmol/L 2-11 14 Glucose 184 mg/dL High 70-100 14 Blood Urea Nitrogen 13 mg/dL 6-24 14 Creatinine 0.95 mg/dL 0.67-1.17 14 BUN/Creatinine Ratio 13.7 8-20 14 Calcium 9.7 mg/dL 8.6-10.3 14 Total Protein 7.8 g/dL 6.4-8.9 14 Albumin 4.2 g/dL 3.2-5.2 14 Globulin 3.6 g/dL 2-4 14 Albumin/Globulin Ratio 1.2 1-3 14 Total Bilirubin 0.70 mg/dL 0.2-1.0 14 Alkaline Phosphatase 95 U/L 34-104 14 Alt 34 U/L 7-52 14 Ast 47 U/L High 13-39 14 Egfr Non- 83.6 >60 14 Egfr 107.5 >60 14, 16 CBC Auto Diff 10/04/2016 White Blood Count 8.3 10^3/uL 3.5-10.8 14 Red Blood Count 5.01 10^6/uL 4.0-5.4 14 Hemoglobin 15.2 g/dL 14.0-18.0 14 Hematocrit 45 % 42-52 14 Mean Corpuscular Volume 90 fL 80-94 14 Mean Corpuscular Hemoglobin 30 pg 27-31 14 Mean Corpuscular HGB Conc 34 g/dL 31-36 14 Red Cell Distribution Width 14 % 10.5-15 14 Platelet Count 163 10^3/uL 150-450 14 Mean Platelet Volume 8 um3 7.4-10.4 14 Abs Neutrophils 5.2 10^3/uL 1.5-7.7 14 Abs Lymphocytes 2.1 10^3/uL 1.0-4.8 14 Abs Monocytes 0.7 10^3/uL 0-0.8 14 Abs Eosinophils 0.3 10^3/uL 0-0.6 14 Abs Basophils 0 10^3/uL 0-0.2 14 Abs Nucleated RBC 0 10^3/uL 14 Granulocyte % 62.4 % 38-83 14 Lymphocyte % 24.9 % Low 25-47 14 Monocyte % 8.6 % 1-9 14 Eosinophil % 3.6 % 0-6 14 Basophil % 0.5 % 0-2 14 Nucleated Red Blood Cells % 0 14 Lipid Profile (Trig/Chol/HDL) 10/04/2016 Triglycerides 166 mg/dL 14, 17 Cholesterol 182 mg/dL 14, 18 HDL Cholesterol 35.4 mg/dL 14, 19 LDL Cholesterol 113 mg/dL 14, 20 Laboratory test 10/04/2016 C Reactive Protein 10.55 mg/L High < 5.00 14, 21 finding Laboratory test 10/04/2016 Glucose By Moniter 181 High 78-110 finding Laboratory test 04/30/2016 Surgical Interface SEE RESULT 22 finding Order BELOW Urine DIP 04/24/2016 Leukocytes neg Neg Urine Nitrites neg Neg Urobilinogen norm Norm Total Protein, Urine neg Neg Urine pH 5 5-6 Urine Blood neg Neg Specific [place] 1.015 1.01-1.02 Urine Ketones neg Neg Urine Bilirubin neg Neg Urine Glucose norm Norm Arthritis Panel 01/04/2016 Uric Acid 6.8 mg/dL 4.4-7.6 Erythrocyte Sed Rate 24 mm/Hr High 0-20 Rheumatoid Factor <15 IU/mL <15 23 Anti-Nuclear Antibody 0.2 U 24 Cyclic Citrullinated Peptide <15.6 U 25 Interpretation See Comment 26 Lead 01/04/2016 Lead <1.0 g/dL 0.0-4.9 27 Protein Electrophoresis 01/04/2016 Total Protein(Pep) 7.1 g/dL 6.3 - 7.9 Albumin 3.4 g/dL 3.4-4.7 Alpha-1 Globulin 0.2 g/dL 0.1-0.3 Alpha-2 Globulin 1.3 g/dL 0.6-1.0 Beta Globulin 1.0 g/dL 0.7-1.2 Gamma Globulin 1.2 g/dL 0.6-1.6 Albumin/Globulin Ratio 0.92 Impression See Comment 28 Laboratory test finding 01/04/2016 Vitamin B12 329 pg/mL 180-914 29 Folate 18.47 ng/mL >3.99 Comp Metabolic Panel 01/04/2016 Sodium 136 mmol/L 133-145 Potassium 3.6 mmol/L 3.5-5.0 Chloride 100 mmol/L Low 101-111 Co2 Carbon Dioxide 28 mmol/L 22-32 Anion Gap 8 mmol/L 2-11 Glucose 164 mg/dL High 70-100 Blood Urea Nitrogen 18 mg/dL 6-24 Creatinine 1.00 mg/dL 0.67-1.17 BUN/Creatinine Ratio 18.0 8-20 Calcium 9.0 mg/dL 8.6-10.3 Total Protein 6.8 g/dL 6.4-8.9 Albumin 4.2 g/dL 3.2-5.2 Globulin 2.6 g/dL 2-4 Albumin/Globulin Ratio 1.6 1-3 Total Bilirubin 0.70 mg/dL 0.2-1.0 Alkaline Phosphatase 76 U/L 34-104 Alt 41 U/L 7-52 Ast 43 U/L High 13-39 Egfr Non- 79.1 >60 Egfr 101.7 >60 30 Laboratory test finding 01/04/2016 Hemoglobin A1c 6.2 % High Less than 6.0 31 Lipid Profile 01/04/2016 Triglycerides 151 mg/dL 32 (Trig/Chol/HDL) Cholesterol 174 mg/dL 33 HDL Cholesterol 36.9 mg/dL 34 LDL Cholesterol 107 mg/dL 35 Laboratory test finding 09/09/2015 CSF Glucose 58 mg/dL 40-70 36, 37 CSF Total Protein 148 mg/dL High 15-45 36, 38 CSF Cell Count 09/09/2015 Body Fluid Appearance Clear 36 Body Fluid Color Colorless 36 CSF Tube # 4 36 Body Fluid Volume 0.5 mL 36 Body Fluid WBC 341 High 36, 39 Body Fluid RBC 2 36 Body Fluid Neutrophils 3 36 Body Fluid Lymph 96 36 Body Fluid [place]ima 1 36 Body Fluid Total Cells Counted 100 36 Fluid Reviewed By MD (SEE NOTE) 36, 40 Herpes Simplex PCR 09/09/2015 Herpes Source CSF 36 HSV 1 PCR Negative Negative 36 HSV 2 PCR Negative Negative 36, 41 Leukemia/Lymphoma Phenot 09/09/2015 Path Interpretation 2-8 Marker TNP 36 Path Interpret > 16 Marker TNP 36 Path Interpret 9-15 Marker (SEE NOTE) 36, 42 Laboratory test finding 09/09/2015 CSF Glucose 58 mg/dL 40-70 36, 43 CSF Total Protein 148 mg/dL High 15-45 36, 44 CSF Culture & Gram Stain SEE RESULT BELOW 36, 45 CSF Cell Count 09/09/2015 Body Fluid Appearance Clear 36 Body Fluid Color Colorless 36 CSF Tube # 4 36 Body Fluid Volume 0.5 mL 36 Body Fluid WBC 341 High 36, 46 Body Fluid RBC 2 36 Body Fluid Neutrophils 3 36 Body Fluid Lymph 96 36 Body Fluid Pima 1 36 Body Fluid Total Cells Counted 100 36 Fluid Reviewed By MD (SEE NOTE) 36, 47 Herpes Simplex PCR 09/09/2015 Herpes Source CSF 36 HSV 1 PCR Negative Negative 36 HSV 2 PCR Negative Negative 36, 48 Leukemia/Lymphoma Phenot 09/09/2015 Path Interpretation 2-8 Marker TNP 36 Path Interpret > 16 Marker TNP 36 Path Interpret 9-15 Marker (SEE NOTE) 36, 49 Laboratory test 09/09/2015 CSF Culture & SEE RESULT 36, 50 finding Gram Stain BELOW Laboratory test 07/18/2015 C Reactive Protein 8.22 mg/L High < 5.00 51 , 52 finding Erythrocyte Sed Rate 25 mm/Hr High 0-14 51 Rheumatoid Factor <15 IU/mL <15 51, 53 Cher (Antinuclear Antibodies) Negative Negative 51 TSH (Thyroid Stim Horm) 1.17 ?IU/mL 0.34-5.60 51 CBC Auto Diff 07/18/2015 White Blood Count 11.9 10^3/uL High 3.5-10.8 51 Red Blood Count 5.17 10^6/uL 4.0-5.4 51 Hemoglobin 16.0 g/dL 14.0-18.0 51 Hematocrit 47 % 42-52 51 Mean Corpuscular Volume 92 fL 80-94 51 Mean Corpuscular Hemoglobin 31 pg 27-31 51 Mean Corpuscular HGB Conc 34 g/dL 31-36 51 Red Cell Distribution Width 13 % 10.5-15 51 Platelet Count 217 10^3/uL 150-450 51 Mean Platelet Volume 7 um3 Low 7.4-10.4 51 Abs Neutrophils 8.2 10^3/uL High 1.5-7.7 51 Abs Lymphocytes 2.4 10^3/uL 1.0-4.8 51 Abs Monocytes 1.0 10^3/uL High 0-0.8 51 Abs Eosinophils 0.3 10^3/uL 0-0.6 51 Abs Basophils 0 10^3/uL 0-0.2 51 Abs Nucleated RBC 0.02 10^3/uL 51 Granulocyte % 68.8 % 38-83 51 Lymphocyte % 20.1 % Low 25-47 51 Monocyte % 8.6 % 1-9 51 Eosinophil % 2.1 % 0-6 51 Basophil % 0.4 % 0-2 51 Nucleated Red Blood Cells % 0.1 51 Comp Metabolic Panel 07/18/2015 Sodium 135 mmol/L 133-145 51 Potassium 3.7 mmol/L 3.5-5.0 51 Chloride 98 mmol/L Low 101-111 51 Co2 Carbon Dioxide 28 mmol/L 22-32 51 Anion Gap 9 mmol/L 2-11 51 Glucose 112 mg/dL High 70-100 51 Blood Urea Nitrogen 21 mg/dL 6-24 51 Creatinine 0.99 mg/dL 0.67-1.17 51 BUN/Creatinine Ratio 21.2 High 8-20 51 Calcium 9.4 mg/dL 8.6-10.3 51 Total Protein 7.0 g/dL 6.4-8.9 51 Albumin 4.2 g/dL 3.2-5.2 51 Globulin 2.8 g/dL 2-4 51 Albumin/Globulin Ratio 1.5 1-3 51 Total Bilirubin 0.60 mg/dL 0.2-1.0 51 Alkaline Phosphatase 74 U/L 34-104 51 Alt 53 U/L High 7-52 51 Ast 42 U/L High 13-39 51 Egfr Non- 80.3 >60 51 Egfr 103.3 >60 51, 54 Urine DIP 04/04/2015 Specific [place] 1.015 1.01-1.02 Urine pH 5 5-6 Leukocytes neg Neg Urine Nitrites neg Neg Total Protein, Urine neg Neg Urine Glucose norm Norm Urine Ketones neg Neg Urobilinogen norm Norm Urine Bilirubin neg Neg Urine Blood neg Neg Comp Metabolic Panel 04/04/2015 Sodium 134 mmol/L 133-145 Potassium 3.6 mmol/L 3.5-5.0 Chloride 98 mmol/L Low 101-111 Co2 Carbon Dioxide 26 mmol/L 22-32 Anion Gap 10 mmol/L 2-11 Glucose 135 mg/dL High 70-100 Blood Urea Nitrogen 19 mg/dL 6-24 Creatinine 1.00 mg/dL 0.67-1.17 BUN/Creatinine Ratio 19.0 8-20 Calcium 9.6 mg/dL 8.6-10.3 Total Protein 7.6 g/dL 6.4-8.9 Albumin 4.5 g/dL 3.2-5.2 Globulin 3.1 g/dL 2-4 Albumin/Globulin Ratio 1.5 1-3 Total Bilirubin 0.40 mg/dL 0.2-1.0 Alkaline Phosphatase 86 U/L 34-104 Alt 32 U/L 7-52 Ast 34 U/L 13-39 Egfr Non- 79.4 >60 Egfr 102.1 >60 55 Laboratory test finding 04/04/2015 Hemoglobin A1c (Glyco 5.7 % Less than 6.0 56 HGB) 1 Because ethnic data is not always readily available, this report includes an eGFR for both -Americans and non- Americans. The National Kidney Disease Education Program (NKDEP) does not endorse the use of the MDRD equation for patients that are not between the ages of 18 and 70, are , have extremes of body size, muscle mass, or nutritional status, or are non- or non-. According to the National Kidney Foundation, irrespective of diagnosis, the stage of the disease is based on the level of kidney function: Stage Description GFR(mL/min/1.73 m(2)) 1 Kidney damage with normal or decreased GFR 90 2 Kidney damage with mild decrease in GFR 60-89 3 Moderate decrease in GFR 30-59 4 Severe decrease in GFR 15-29 5 Kidney failure <15 (or dialysis) 2 Acute inflammation: >10.00 3 Please check labs in 3 to 4 weeks 4 Because ethnic data is not always readily available, this report includes an eGFR for both -Americans and non- Americans. The National Kidney Disease Education Program (NKDEP) does not endorse the use of the MDRD equation for patients that are not between the ages of 18 and 70, are , have extremes of body size, muscle mass, or nutritional status, or are non- or non-. According to the National Kidney Foundation, irrespective of diagnosis, the stage of the disease is based on the level of kidney function: Stage Description GFR(mL/min/1.73 m(2)) 1 Kidney damage with normal or decreased GFR 90 2 Kidney damage with mild decrease in GFR 60-89 3 Moderate decrease in GFR 30-59 4 Severe decrease in GFR 15-29 5 Kidney failure <15 (or dialysis) 5 Acute inflammation: >10.00 6 Housekeeping/Laundry Supervisor: [id number] Housekeeping/Laundry Supervisor: [id number] 8 Because ethnic data is not always readily available, this report includes an eGFR for both -Americans and non- Americans. The National Kidney Disease Education Program (NKDEP) does not endorse the use of the MDRD equation for patients that are not between the ages of 18 and 70, are , have extremes of body size, muscle mass, or nutritional status, or are non- or non-. According to the National Kidney Foundation, irrespective of diagnosis, the stage of the disease is based on the level of kidney function: Stage Description GFR(mL/min/1.73 m(2)) 1 Kidney damage with normal or decreased GFR 90 2 Kidney damage with mild decrease in GFR 60-89 3 Moderate decrease in GFR 30-59 4 Severe decrease in GFR 15-29 5 Kidney failure <15 (or dialysis) 9 Test Performed by: [address] [id number] 10 [id number] Therapeutic target for the treatment of diabetes Mellitus patients is <7% HBA1C, and in selective patients <6.0%.Please refer to [place] [employer] Diabetic care guidelines for further information. 12 [id number] Unable to calculate due to low microalbumin 14 [id number] 15 Therapeutic target for the treatment of diabetes Mellitus patients is <7% HBA1C, and in selective patients <6.0%.Please refer to [place] [employer] Diabetic care guidelines for further information. 16 Because ethnic data is not always readily available, this report includes an eGFR for both -Americans and non- Americans. The National Kidney Disease Education Program (NKDEP) does not endorse the use of the MDRD equation for patients that are not between the ages of 18 and 70, are , have extremes of body size, muscle mass, or nutritional status, or are non- or non-. According to the National Kidney Foundation, irrespective of diagnosis, the stage of the disease is based on the level of kidney function: Stage Description GFR(mL/min/1.73 m(2)) 1 Kidney damage with normal or decreased GFR 90 2 Kidney damage with mild decrease in GFR 60-89 3 Moderate decrease in GFR 30-59 4 Severe decrease in GFR 15-29 5 Kidney failure <15 (or dialysis) 17 Desirable <150 Borderline high 150-199 High 200-499 Very High >500 18 Desirable <200 Borderline high 200-239 High >239 19 Low <40 Desirable: 40-60 High: >60 20 Desirable: <100 mg/dL Near Optimal: 100-129 mg/dL Borderline High: 130-159 mg/dL High: 160-189 mg/dL Very High: >189 mg/dL 21 Acute inflammation: >10.00 22 SEE RESULT BELOW Name: PATO BERRY : [address]: Larry Mcclain MD Acct: [id number] Unit: [id number] AGE: 50 Location: ENDO Re04/30/16 SEX: M Status: REG REF SPEC: [id number] HUGO: 04/30/161142 [facility] DR: Larry Mcclain MD REQ: [id number] RECD: 04/30/168660 STATUS: VI TAVARES DR: Enrique Shrestha MD _ ORDERED: LEVEL IV/2 FINAL DIAGNOSIS 1. Colon, sigmoid, biopsies: --Large intestinal mucosa with mild architectural disorder. -- No active colitis identified. -- No evidence of microscopic/lymphocytic colitis, collagenous colitis or other chronic inflammatory bowel process identified. 2. Colon, 25 cm, biopsy: -- Tubulovillous adenoma (s). -- No high-grade dysplasia identified. CLINICAL HISTORY No history given POST-OPERATIVE DIAGNOSIS Colonoscopy to mid transverse, poor prep - polyp at 25 cm snare cautery, mild colitis biopsied; follow-up biopsy GROSS DESCRIPTION 1. The specimen is received in formalin labeled, Sigmoid Biopsies, and consists of two speckled winkler-brown irregular to polypoid soft tissue fragments measuring 0.6 x 0.2 x 0.2 cm and 1.0 x 0.2 x 0.1 cm, which are entirely submitted in one cassette. 2. The specimen is received in formalin labeled, Colon Polyps at 25 cm, and consists of a 1.0 x 0.5 x 0.5 cm aggregate of winkler-pink polypoid soft tissue fragments, which is entirely submitted in one cassette. Signed (signature on file) Forrest Angela MD 1525 END OF REPORT * ML=Testing performed at Main Lab DEPARTMENT OF PATHOLOGY, [address] [place] [address] Forrest Angela M.D. Director [facility] # [id number] 23 Test Performed by: [place] [address] Saloonkeeper: Elijah Mayberry II, M.D., Ph.D. 24 REFERENCE VALUE <=1.0 (Negative) 25 REFERENCE VALUE <20.0 (Negative) 26 Tests for antibodies to dsDNA and NUBIA antigens are not performed automatically unless the CHER result is > or= 3.0 U. Studies performed at [facility] indicate that positive CHER results <3.0 U are rarely accompanied by positive second order tests. Test Performed by: [facility] [place] [address] Saloonkeeper: Elijah Mayberry II, M.D., Ph.D. 27 ADDITIONAL INFORMATION Testing performed by Inductively Coupled Plasma-Mass Spectrometry (ICP-MS). This test was developed and its performance characteristics determined by [facility] in a manner consistent with CLIA requirements. This test has not been cleared or approved by the U.S. Food and Drug Administration. 28 RESULT: No apparent monoclonal protein on serum electrophoresis. Test Performed by: [facility] [place] [address] Saloonkeeper: Elijah Mayberry II, M.D., Ph.D. 29 Normal Range 180 to 914 Indeterminate Range 145 to 180 Deficient Range <145 30 Because ethnic data is not always readily available, this report includes an eGFR for both -Americans and non- Americans. The National Kidney Disease Education Program (NKDEP) does not endorse the use of the MDRD equation for patients that are not between the ages of 18 and 70, are , have extremes of body size, muscle mass, or nutritional status, or are non- or non-. According to the National Kidney Foundation, irrespective of diagnosis, the stage of the disease is based on the level of kidney function: Stage Description GFR(mL/min/1.73 m(2)) 1 Kidney damage with normal or decreased GFR 90 2 Kidney damage with mild decrease in GFR 60-89 3 Moderate decrease in GFR 30-59 4 Severe decrease in GFR 15-29 5 Kidney failure <15 (or dialysis) 31 Therapeutic target for the treatment of diabetes Mellitus patients is <7% HBA1C, and in selective patients <6.0%.Please refer to [place] [employer] Diabetic care guidelines for further information. 32 Desirable <150 Borderline high 150-199 High 200-499 Very High >500 33 Desirable <200 Borderline high 200-239 High >239 34 Low <40 Desirable: 40-60 High: >60 35 Desirable: <100 mg/dL Near Optimal: 100-129 mg/dL Borderline High: 130-159 mg/dL High: 160-189 mg/dL Very High: >189 mg/dL 36 Comment: Tube 4 37 Comment: Tube 2 38 Comment: Tube 2 39 Verbal to [id number] by [email or web address] at 1540 on 09/09/15. Results read back accurately. 40 Profound lymphocytosis. Recommend correlation with viral serology studies. Specimen sent for flow cytometry. Reviewed by: Lakeisha Alvares MD 41 ADDITIONAL INFORMATION Analyte Specific Reagent: This test was developed and its performance characteristics determined by [facility]. It has not been cleared or approved by the U.S. Food and Drug Administration. Test Performed by: [facility] - [address] [address] Saloonkeeper: Elijah Mayberry II, M.D., Ph.D. 42 FINAL DIAGNOSIS: Specimen Source: Cerebrospinal fluid Flow cytometry immunophenotypic analysis: No evidence of an immunophenotypically abnormal cell population. Interpretative data: Blasts: 0% of gated events Lymphocytes: 99% of gated events B-cells: 1% of lymphocytes; kappa:lambda within normal limits T-cells/NK cells: No aberrant population detected. Markers tested: CD3, CD10, CD16, CD19, CD34, CD45, kappa surface light chains, lambda surface light chains, 7-AAD. Quality Assessment: Acceptable Viability: Acceptable Viable lymphocytes (7-AAD): 99% Specimen received within validated guidelines. A Messer-Giemsa stained slide prepared from the flow cytometry specimen was examined for quality purposes. Electronically signed by: Lakeisha Alvares MD Technical component performed by: [address] [address] Saloonkeeper: Elijah Mayberry II, MD, PhD. 43 Comment: Tube 2 44 Comment: Tube 2 45 SEE RESULT BELOW Name: FRANKIEPATO : [address]: Kami Ferguson MD Acct: [id number] Unit: [id number] AGE: 49 Location: [place] [address] Re09/09/15 SEX: M Status: ADM IN SPEC: [id number] HUGO: 09/09/[address] [facility] [address]: Asa Li MD REQ: [id number] RECD: 09/09/15 STATUS: RES [facility] DR: Enrique Shrestha MD _ SOURCE: CSF SPDESC: ORDERED: CSF Cult/GS COMMENTS: Comment: Tube 3 Procedure Result Reported Site CSF Gram Stain Final 09/09/15- 1548 ML 4+ Nucleated Cells No Polys Observed No Organisms Seen Preparation By Cytospin Smear CSF Culture Preliminary 09/12/15- 09 ML No Growth Day 3 * ML - MAIN LAB ([facility]) . END OF REPORT * ML=Testing performed at Main Lab DEPARTMENT OF PATHOLOGY, [address] [place] [address] Forrest Angela M.D. Director [facility] # [id number] 46 Verbal to [id number] by [id number] at 1540 on 09/09/15. Results read back accurately. 47 Profound lymphocytosis. Recommend correlation with viral serology studies. Specimen sent for flow cytometry. Reviewed by: Lakeisha Alvares MD 48 ADDITIONAL INFORMATION Analyte Specific Reagent: This test was developed and its performance characteristics determined by [facility]. It has not been cleared or approved by the U.S. Food and Drug Administration. Test Performed by: [facility] [place] [address] Saloonkeeper: Elijah Mayberry II, M.D., Ph.D. 49 FINAL DIAGNOSIS: Specimen Source: Cerebrospinal fluid Flow cytometry immunophenotypic analysis: No evidence of an immunophenotypically abnormal cell population. Interpretative data: Blasts: 0% of gated events Lymphocytes: 99% of gated events B-cells: 1% of lymphocytes; kappa:lambda within normal limits T-cells/NK cells: No aberrant population detected. Markers tested: CD3, CD10, CD16, CD19, CD34, CD45, kappa surface light chains, lambda surface light chains, 7-AAD. Quality Assessment: Acceptable Viability: Acceptable Viable lymphocytes (7-AAD): 99% Specimen received within validated guidelines. A Messer-Giemsa stained slide prepared from the flow cytometry specimen was examined for quality purposes. Electronically signed by: Lakeisha Alvares MD Technical component performed by: [place] [address] Saloonkeeper: Elijah Mayberry II, MD, PhD. 50 SEE RESULT BELOW Name: PATO BERRY : [address]: Kami Ferguson MD Acct: [id number] Unit: [id number] AGE: 49 Location: [place] [address] Re09/09/15 Dis: 09/12/15 SEX: M Status: DIS IN SPEC: [id number] HUGO: 09/09/15-[address]: Asa Li MD REQ: [id number] RECD: 09/09/15 STATUS: COMP OTHR DR: Enrique Shrestha MD _ SOURCE: CSF SPDESC: ORDERED: CSF Cult/GS COMMENTS: Comment: Tube 3 Procedure Result Reported Site CSF Gram Stain Final 09/09/15- 1548 ML 4+ Nucleated Cells No Polys Observed No Organisms Seen Preparation By Cytospin Smear CSF Culture Final 09/13/15- 08 ML No Growth Day 4 * ML - MAIN LAB ([facility]) . END OF REPORT * ML=Testing performed at Main Lab DEPARTMENT OF PATHOLOGY, [address] [place] [address] Forrest Angela M.D. Director [facility] # [id number] 51 D/w patient 52 Acute inflammation: >10.00 53 Test Performed by: [place] [address] Saloonkeeper: Elijah Mayberry II, M.D., Ph.D. 54 Because ethnic data is not always readily available, this report includes an eGFR for both -Americans and non- Americans. The National Kidney Disease Education Program (NKDEP) does not endorse the use of the MDRD equation for patients that are not between the ages of 18 and 70, are , have extremes of body size, muscle mass, or nutritional status, or are non- or non-. According to the National Kidney Foundation, irrespective of diagnosis, the stage of the disease is based on the level of kidney function: Stage Description GFR(mL/min/1.73 m(2)) 1 Kidney damage with normal or decreased GFR 90 2 Kidney damage with mild decrease in GFR 60-89 3 Moderate decrease in GFR 30-59 4 Severe decrease in GFR 15-29 5 Kidney failure <15 (or dialysis) 55 Because ethnic data is not always readily available, this report includes an eGFR for both -Americans and non- Americans. The National Kidney Disease Education Program (NKDEP) does not endorse the use of the MDRD equation for patients that are not between the ages of 18 and 70, are , have extremes of body size, muscle mass, or nutritional status, or are non- or non-. According to the National Kidney Foundation, irrespective of diagnosis, the stage of the disease is based on the level of kidney function: Stage Description GFR(mL/min/1.73 m(2)) 1 Kidney damage with normal or decreased GFR 90 2 Kidney damage with mild decrease in GFR 60-89 3 Moderate decrease in GFR 30-59 4 Severe decrease in GFR 15-29 5 Kidney failure <15 (or dialysis) 56 Therapeutic target for the treatment of diabetes Mellitus patients is <7% HBA1C, and in selective patients <6.0%.Please refer to [place] [employer] Diabetic care guidelines for further information. Procedures Date CPT Code Description Status 05/30/2016 45096 EKG, at Least 12 Leads w/Interpretation and Report Completed 09/08/2015 76526 Therapeutic,Prophylactic,Or Diagnostic Inj,SC/Im Completed Specify Drug Encounters Type Date Location Provider CPT E/M Dx Office Visit 04/17/2017 5:00p [place] [address] L60.0 J44.9 Office Visit 12/24/2016 11:15a [place] [address] E11.65 M54.2 K30 Z23 Office Visit 11/08/2016 9:15a [place] [address] E11.65 K40.90 M25.541 Z23 Office Visit 10/18/2016 9:00a [place] [address] E11.65 E66.8 Office Visit 10/04/2016 10:30a [place] [address] R73.03 G47.30 J44.9 Office Visit 07/18/2016 11:30a [place] [address] R06.00 Office Visit 06/22/2016 11:30a [place] [address] I10 I25.118 Office Visit 05/30/2016 9:45a [place] [address] J44.9 K13.79 Office Visit 04/24/2016 3:00p Main Office Krish Reyes III, RESIDENTIAL SUBCONTRACTOR-C 97850 M54.9 Office Visit 04/04/2016 3:30p [place] [address] K40.90 G62.9 I10 Office Visit 02/20/2016 9:30a [place] [address] K40.90 G56.00 G62.9 Office Visit 02/06/2016 10:45a [place] [address] G62.9 Office Visit 01/04/2016 8:45a [place] [address] M54.5 Z12.11 G62.9 J44.9 G56.00 Office Visit 11/28/2015 3:30p [place] [address] F51.12 J44.9 M54.5 Office Visit 09/26/2015 1:00p [place] [address] G57.80 Office Visit 09/16/2015 10:15a [place] [address] A87.9 F51.02 M54.5 J44.9 Office Visit 09/08/2015 3:00p [place] [address] J01.90 Office Visit 08/29/2015 9:15a [place] [address] M54.5 K59.00 Office Visit 08/12/2015 11:45a [place] [address] M54.5 J44.9 F17.213 Office Visit 07/18/2015 9:45a [place] [address] M54.5 Z72.0 R63.5 Office Visit 06/08/2015 9:15a [place] [address] T14.8 Office Visit 06/02/2015 9:45a [place] [address] M54.5 T14.8 Office Visit 05/18/2015 9:45a [place] [address] M54.5 G56.00 Z72.0 Office Visit 05/04/2015 3:15p [place] [address] M54.5 Z72.0 I10 Office Visit 04/13/2015 5:00p [place] [address] M54.5 Z72.0 Office Visit 04/06/2015 5:15p [place] [address] M54.5 I10 Z72.0 Office Visit 04/04/2015 9:00a [place] [address] R06.02 I10 B35.3 Z72.0 Plan of Care 07/17/2017 - Enrique Shrestha MDR10.9 Unspecified abdominal painNew Medication: Miralax 3350 NFComments:He seems to have severe constipation, with just overflow leakage getting out. We will do a bowel cleanout and increase fiber, but I assume this is medication related.Recommendations:Bowel cleanout Fibercon eqihzjbW85.65 Type 2 diabetes mellitus with hyperglycemiaComments:Primary measures proven to improve life expectancy:Smoking- Has not smoked in yearsBlood pressure- controlled todayMetformin- takingStatin- [id number]- Controlled 6 months ago. Will recheck today.Secondary measures:-Diabetic foot exam annually UTD 10/18/16-Diabetic retinopathy screen annually : last saw an eye doc some time ago.-Microalbumin yearly to check:UTD 10/18/16Tertiary measures:- HBV vaccine - -Pneumovax -Done -Nutritional counseling: Refuses to see a nutritional counselor, refused again 11/08/16, refused again 12/24/16.-PHQ-2 Under treatment for depression-Alcohol use screening: abstaining, quit 2005- exercise program: needs
[2017-07-20] MEDS ORDERED: Ondansetron TAB* 4 MG PO ONE (23:34)
[2017-07-20] MEDS ORDERED: NS 0.9% 1000 ML* 1,000 ML IV ONE (23:34)
[2017-07-20] MEDS ORDERED: Ondansetron INJ* 2 MG/ML VIAL ONE (23:59)
[2017-07-21] MEDS ORDERED: Ondansetron INJ* 2 MG/ML VIAL IV ONE (00:01)
[2017-07-21 00:14] LABS: ABS Basophils 0 10^3/ul (0-0.2); ABS Eosinophils 0.1 10^3/ul (0-0.6); ABS Lymphocytes 0.7 10^3/ul (1.0-4.8); ABS Monocytes 1.1 10^3/ul (0-0.8); ABS Nucleated RBC 0 10^3/ul; Hematocrit 40 % (42-52); Hemoglobin 13.9 g/dl (14.0-18.0); Lymphocyte % 9.2 % (25-47); Mean Corpuscular HGB Conc 35 g/dl (31-36); Mean Corpuscular Hemoglobin 32 pg (27-31); Mean Corpuscular Volume 91 fL (80-94); Mean Platelet Volume 7 um3 (7.4-10.4); Nucleated Red Blood Cells % 0; Platelet Count 128 10^3/ul (150-450); Red Cell Distribution Width 14 % (10.5-15)
--- NOTE | 2017-07-21 00:14 | ED ---
Abdominal Pain/Male - HPI Summary HPI Summary: Pt here w/ difficulty moving bowels since last week. Saw PCP who per pt told him he had a "blockage" and to start miralax. Pt reports he took this that day and the following (Sat and ) with Mt. [place]. Has some watery loose/mucousy stool after this w/ some relief but not as much relief as he'd hoped. When asked if he has rectal pressure, admits yes some however when he tries to go, he can't get anything out. His cousin provided him w/ a glycerin suppository yesterday with a few small specs of stool. He also tried MOM yesterday but vomited - no BM He reports he's been nauseous over the past week since this started. Chills today despite house being 80 degrees. Takes percocet and morphine along with gabapentin 2400mg daily for chronic back pain. Has taken sennokot on/off since starting this but never routinely. Also reports he stopped taking his sulfasalazine 3 weeks ago for his psoriatic arthritis. This was then restarted a few days ago. Has not had issues with this in the past. Takes metformin and glipizide for DM2 Takes HCTZ and triamterene for HTN. Also reports taking something for his heart rate as his heart is stiff but does not recall the name Bowel hx: Colonoscopy - polyp found and removed but provider reported he couldn't see all areas d/t incomplete bowel prep GI ulcer - no pain or bleeding now - stools are brown in color w/o hematochezia , dark/tarry quality Surg hx: Appendectomy 10 yrs ago B/L inguinal hernia repair couple of months ago Fam hx: colon CA - History of Current Complaint Chief Complaint: EDAbdPain Stated Complaint: ABD PAIN, VOMITING Time Seen by Provider: 07/20/17 22:54 Hx Obtained From: Patient, Family/[employer] - cousin Pain Intensity: 3 - Allergies/Home Medications Allergies/Adverse Reactions: Allergies Allergy/AdvReac Type Severity Reaction Status Date / Time No Known Allergies Allergy Verified 06/26/17 09:49 PMH/Surg Hx/FS Hx/Imm Hx Previously Healthy: Yes Endocrine/Hematology History: Reports: Hx Diabetes - TYPE II, controlled with medication Cardiovascular History: Reports: Hx Angina, Hx Hypertension - controlled with medication, Other Cardiovascular Problems/Disorders - cardiac cath; cardiomyopathy? Denies: Hx Coronary Artery Disease, Hx Hypercholesterolemia, Hx Myocardial Infarction, Hx Pacemaker/ICD, Hx Valvular Heart Disease Respiratory History: Reports: Hx Asthma - uses prn inhaler, Hx Chronic Bronchitis, Hx Chronic Obstructive Pulmonary Disease (COPD), Hx Pneumonia, Hx Sleep Apnea GI History: Reports: Hx Gastroesophageal Reflux Disease, Hx Hiatal Hernia - hx of,, Hx Ulcer - hx of, "yrs ago", bleeding ulcer, Musculoskeletal History: Reports: Hx Back Problems, Hx Tendonitis - wrists, elbows Sensory History: Reports: Hx Contacts or Glasses - wears glasses, Hx Hearing Problem Denies: Hx Cataracts, Hx Glaucoma, Hx Hearing Aid - will be getting these February 06, 2017 Opthamlomology History: Reports: Hx Contacts or Glasses - wears glasses Denies: Hx Cataracts, Hx Glaucoma Neurological History: Reports: Hx Migraine - hx of, last migraine over 10 yrs ago, Hx Nerve Disease - Hx of Polyneuropathy, Other Neuro Impairments/Disorders - recent hospitalization for viral menigitis 2015 Psychiatric History: Reports: Hx Depression - controlled with medication Denies: Hx Panic Disorder - Surgical History Surgery Procedure, Year, and Place: HERNIA REPAIR, 1990. APPENDECTOMY(BURST APPENDIX WITH FOLLOW UP THAT CONTAMINATED PERITONIUM) . cardiac cath 2015. right wrist cyst removed . Hx Anesthesia Reactions: No - Immunization History Date of Tetanus Vaccine: utd Date of Influenza Vaccine: none Infectious Disease History: No Infectious Disease History: Reports: Hx Shingles, History Other Infectious Disease - Meningitis Denies: Traveled Outside the [place] in Last 30 Days - Family History Known Family History: Positive: Cardiac Disease - Social History Occupation: Disabled - chronic back pain Lives: With Family - female cousin Alcohol Use: None Alcohol Amount: QUIT IN 2005 Hx Substance Use: No Substance Use Type: Reports: None Hx Tobacco Use: Yes - not currently; quit 3 years ago Smoking Status (MU): Former Smoker Type: Cigarettes Amount Used/How Often: smoked for approx 40 yrs, 2 ppd Review of Systems Positive: Chills. Negative: Fever Cardiovascular: Negative Negative: Chest Pain Respiratory: Negative Negative: Shortness Of Breath Positive: Abdominal Pain, Vomiting, Nausea. Negative: Diarrhea Genitourinary: Other - urinating well Musculoskeletal: Other - chronic back pain Skin: Negative Neurological: Negative Positive: Anxious - concerned All Other Systems Reviewed And Are Negative: Yes Physical Exam Triage Information Reviewed: Yes Vital Signs On Initial Exam: Initial Vitals Temp Pulse Resp BP Pulse Ox 98.4 F 116 20 161/80 95 07/20/17 21:53 07/20/17 21:53 07/20/17 21:53 07/20/17 21:53 07/20/17 21:53 Vital Signs Reviewed: Yes Appearance: Positive: Pain Distress - mild, lying on Rt side on stretcher, Obese Skin: Positive: Warm, Skin Color Reflects Adequate Perfusion - diffuse enma skin tone, Dry Head/Face: Positive: Normal Head/Face Inspection Eyes: Positive: Normal, EOMI, Conjunctiva Clear - anicteric sclera ENT: Negative: Hearing grossly normal - can hear with face to face conversation ; limited hearing from other angles of conversation, Pharynx normal - oral mucosa dry, Nasal congestion, Nasal drainage Neck: Positive: Supple Respiratory/Lung Sounds: Positive: Breath Sounds Present Cardiovascular: Positive: Other - distant heart sounds, S1, S2. Negative: Murmur, Rub Abdomen Description: Positive: Other: - vast abdominal girth - no tympany but rather dull to percussion and firm/fullness along Rt side of ab - diffuse mild TTP - no rebounding; healed surgical scars which correlate w/ laparoscopic procedures Bowel Sounds: Positive: Present Musculoskeletal: Positive: Strength/ROM Intact Neurological: Positive: Normal, Sensory/Motor Intact, Alert, Oriented to Person Place, Time, CN Intact II-III Psychiatric: Positive: Anxious - [place] Coma Scale Coma Scale Total: 15 Diagnostics - Vital Signs Vital Signs Temp Pulse Resp BP Pulse Ox 07/20/17 21:53 98.4 F 116 20 161/80 95 - Laboratory Result Diagrams: 07/20/17 23:55 07/20/17 23:55 Lab Statement: Any lab studies that have been ordered have been reviewed, and results considered in the medical decision making process. Re-Evaluation - Re-Evaluation First Eval Change: Improved - Pt reports BM after drinking CT contrast - very minimal change in symptoms and does not feel he had a thorough BM Abdominal Pain Fem Course/Dx - Course Course Of Treatment: Pt presents w/ lack of satisfying BM in > 1 week. He reports use of narcotics for chronic back pain and diuretics for HTN. Was seen by PCP last week who recommended miralax. Pt took this on 2 different occasions w/ Mt. [place] and had a loose, watery stool but did not feel this alleviated his ab discomfort and nausea. Yesterday and today has persistent ab pain and nausea w/ vomiting. Tried MOM and glycerin suppository yesterday w/o desired outcome. W / h/o GI issues, ab surgeries and vomiting, a CT ab/pelvis was ordered to assess for obstruction as well as diverticular dz. Labs indicated elevated WBC and monocytes (afebrile but reports chills), chlor 99, AST 73, CRP 37.05, lipase 190 (amylase WNL). He had a loose moderate BM after completing first contrast beverage but still uncomfortable. Pending CT AB/PELVIS. Vitals are stable w/ mild tachycardia (pt reports this is baseline for him). Signed out to Dr. Centeno in stable and somewhat improved condition. - Diagnoses Provider Diagnoses: Abdominal pain with vomiting, Constipation Discharge - Discharge Plan Condition: Stable Disposition: OTHER Discharge Disposition Comment: signed out Referrals: Enrique Shrestha MD [Primary Care Provider] -
[2017-07-21 00:23] LABS: EGFR Non-African American 77.9 (>60)
[2017-07-21 00:33] LABS: Urine Appearance Clear; Urine Blood Negative (Negative); Urine Color Amber; Urine Ketones Negative (Negative); Urine Protein 1+(30 mg/dL) (Negative); Urine Specific Gravity 1.029 (1.010-1.030); Urine Urobilinogen Negative (Negative)
[2017-07-21] MEDS ORDERED: Iodixanol* (CONTRAST) 320 MG/ML 100 ML SDV IV ONE (02:16)
[2017-07-21] MEDS ORDERED: oxyCODONE/Acetamin 5/325 MG* TAB PO ONE (05:29)
--- NOTE | 2017-07-21 06:43 | ED ---
Rodolfo Greer Abhishek, scribed for Patrizia Centeno MD on 07/21/17 at 0350 . Progress - Progress Note Progress Note: The pt was signed out by SAMSON Rahman, pending CT results and disposition. Pt presents a chief complaint of abd pain discrete to the lower abd pelvis region. Pt states that the pain is aggravated by coughing and not food. PT reports of vomiting. Pt hydrates himself with mountain dew and states he "only drinks mountain dew." Duration of pain is 1.5 weeks. PT also takes pain medication for back pain and DM medication. Pt reports nausea. Abd exam showed Tenderness right upper quadrant. Pt denies burning sensation when urinating, hematuria. elvate dlipase, AST is slightly elevated. CT showed what appeared to mild cholecystitis. We consulted Dr. Corrigan at 0403 about patient care. He recommended repeating Lipase and labs prior to admittance. Pt will be signed out to Dr. Chapa with a dx of abd pain, pancreatitis cholecystitis - Results/Orders Results/Orders: CT A/P reveals Cirrhosis and portal venous hypertension but no ascites Suspected cholecystitis can further evaluated with ultrasound as per radiologist. The ED physician has reviewed the report and agrees. Course/Dx - Diagnoses Provider Diagnoses: Cholecystitis, Abdominal pain, Pancreatitis The documentation as recorded by the Rodolfo rosas Abhishek accurately reflects the service I personally performed and the decisions made by , Patrizia Centeno MD.
--- NOTE | 2017-07-21 07:55 | RAD ---
INDICATION: Abdominal pain, watery stools vomiting. COMPARISON: There are no prior studies available for comparison. TECHNIQUE: A CT scan of the abdomen and pelvis was performed with intravenous and oral contrast following intravenous injection of 141 ml of Visipaque 320 nonionic contrast. Contiguous axial sections were obtained from the lung bases through the symphysis pubis. Images were reconstructed in the coronal and sagittal planes. FINDINGS: The lung bases are clear. No pleural effusion is present. The liver and spleen are moderately enlarged. The liver is decreased in attenuation. There is a slightly nodular contour suggesting the possibility of cirrhosis. The portal and hepatic veins appear patent. The gallbladder is distended. No calcified gallstones or gallbladder wall thickening is seen. The pancreas appears to be within normal limits. There is suggestion of a small paraesophageal varices and recanalization of the umbilical vein. The kidneys and adrenal glands are normal in size. No hydronephrosis is seen. No significant focal renal abnormality is seen. The aorta is normal in caliber with mild calcific plaque present. There are mildly prominent retroperitoneal lymph nodes in the upper abdomen although not enlarged by size criteria. The stomach, small and large bowel appear nondistended. The patient is status post appendectomy by history. There is no evidence for diverticulitis or colitis. No free intraperitoneal air or fluid is seen. No significant focal osseous abnormality is seen. IMPRESSION: 1. FINDINGS SUGGESTIVE OF CIRRHOSIS AND PORTAL HYPERTENSION. 2. DISTENDED GALLBLADDER MAY REPRESENT EARLY ACUTE CHOLECYSTITIS OR NPO STATUS. RECOMMEND A RIGHT UPPER QUADRANT ULTRASOUND FOR FURTHER EVALUATION.
--- NOTE | 2017-07-21 08:28 | RAD ---
INDICATION: Abnormal CT, distended gallbladder. COMPARISON: Comparison is made with a prior CT of the abdomen and pelvis from July 21 2017. TECHNIQUE: Multiple real-time images of the right upper quadrant were obtained. FINDINGS: The gallbladder appears distended. No gallbladder wall thickening or gallstones are seen. No pericholecystic fluid is present. No positive sonographic Casas sign was present. No intra or extrahepatic ductal distention is present. The common bile duct measured 0.5 cm in diameter. The liver is enlarged and increased in echogenicity consistent with diffuse hepatocellular disease. No significant focal hepatic abnormality is seen. The pancreas is partially obscured by overlying bowel gas. No pancreatic ductal distention is seen. The right kidney is normal in size without evidence for hydronephrosis. IMPRESSION: 1. DISTENDED GALLBLADDER WITHOUT EVIDENCE FOR GALLSTONES OR CHOLECYSTITIS. 2. HEPATOMEGALY WITH DIFFUSE HEPATOCELLULAR DISEASE.
[2017-07-21] MEDS ORDERED: Morphine INJ* 4 MG/ML 1 ML CARPUJECT IV ONE (12:08)
[2017-07-21] MEDS ORDERED: Pantoprazole IV* 40 MG IV ONE ×2 (12:35→15:00)
[2017-07-21] MEDS ORDERED: Gabapentin CAP(*) 300 MG PO ONE ×2 (12:36→15:00)
--- NOTE | 2017-07-21 13:31 | CONS ---
CC: [facility]; Dr. Enrique Shrestha * SURGICAL CONSULTATION REPORT: HISTORY OF PRESENT ILLNESS: I was contacted by the emergency room doctors regarding Mr. Sekou Berry, a 51-year-old gentleman, with a history of type 2 diabetes, chronic back pain, hypertension, obstructive sleep apnea, COPD, obesity, GERD, who presents to [facility] Emergency Room with complaints of diffuse abdominal pain, Mostly in the lower abdomen for over 4 days. He was seen by his primary care doctor, who recommended laxative. The patient takes Senna laxative daily. This did not help with any bowel movement. The patient describes loose bowel movements during that time without any solids, decreased appetite, and the patient's symptoms then started including nausea and vomiting by approximately Saturday of last week. This worsened and patient presented last night with complaints of pain along with a cough, describing that the cough would exacerbate the pain mostly in the umbilical and upper abdomen. Pain is nonradiating. It is worse with movement and coughing. The patient is passing flatus. He describes being bloated. His workup in the emergency room has included labs, which showed normal white count, mild anemia, and a chemistry panel with elevated lipase. The patient's repeat lipase was within normal limits. He underwent a CAT scan of the abdomen and pelvis. These images in the report were reviewed and shows no free fluid or free air. Contrast right down to the rectum, no evidence of obstruction. Suggestion of portal hypertension, however, and cirrhosis. He did have a distended gallbladder and upper quadrant ultrasound was ordered. This ultrasound was performed. These images as well as report were reviewed and showed no gallbladder wall thickening. Normal common bile duct and no gallstones. He has been maintained in the ER with intermittent plan, discharge versus admission. According to the patient, he was told he will be admitted earlier today. The patient just received a tray of food and was only able to eat a couple of fork full of eggs, he has not vomited this. PAST MEDICAL HISTORY: As above. PAST SURGICAL HISTORY: Open right inguinal hernia repair in 1990, appendectomy for a perforated appendix at the age of 15. He also had an open left inguinal hernia in January of last year. MEDICATIONS: Include: 1. Bupropion. 2. Otezla. 3. Albuterol. 4. Mobic. 5. Gabapentin 600 mg 4 times a day. 6. Fluconazole. 7. Diltiazem. 8. Senokot. 9. MS Contin. 10. Oxycodone. 11. Glipizide. 12. Triamterene. 13. Hydrochlorothiazide. 14. Likely metformin. ALLERGIES: He has no known drug allergies. FAMILY HISTORY: The patient states he has a family history of stomach cancers. SOCIAL HISTORY: He quit smoking 3 years ago. He , unemployed, lives with a girlfriend. Denies alcohol use. REVIEW OF SYSTEMS: No fevers or chills. He is complaining of a cough and upper respiratory issues. He does have sleep apnea, using CPAP. Denies any chest pain at this time. Abdominal complaints as described. No dysuria. Change in bowel habits as described with kind of a chronic constipation that now may be exacerbated. Endocrine: The patient does have diabetes. He has not checked his fingersticks since he left his glucometer in [place] a few weeks ago. He has chronic pain and is seen at the pain clinic. He did have a history of bleeding duodenal ulcer in 1995. Last colonoscopy over a year ago. Polyp was removed. PHYSICAL EXAM: He is afebrile. Heart rate in the 100s upon arrival, now closer to the 80s. Blood pressure on arrival low at 71/46. He is alert and oriented x3. He is sitting up. He is coughing at times and retching at other times. Head, Ears, Eyes, Nose, and Throat: Normocephalic and atraumatic. Sclera are anicteric. Mucous membranes are dry. Neck: No lymphadenopathy. No CVA tenderness. Abdomen is soft, obese, tender on deep palpation. Abdomen is otherwise soft. There is no rebound. Tenderness mostly in the periumbilical and epigastric regions. Negative Casas's sign. Rectal Exam: Guaiac pending. Extremities: Within normal limits. DIAGNOSTIC STUDIES/LAB DATA: Labs as described above. BUN and creatinine ratio of 12.9. CRP of 37. Urinalysis within normal limits. CT scan and ultrasound described as above. IMPRESSION: A 51-year-old gentleman with multiple medical problems, who presents with approximately 4-day history of worsening abdominal pain, cough, nausea, vomiting, unable to tolerate p.o. Differential diagnosis includes a gastroparesis, peptic ulcer disease including bleeding ulcer, unlikely biliary disorder, constipation secondary to chronic pain meds. RECOMMENDATIONS: Recommendation is for repeat CBC, IV fluids, pain management, resume previous pain medications, and GI consult if possible if hemoglobin is dropping for possible EGD. The patient can get HIDA scan while admitted, but this is not urgent. Differential diagnosis again with the gastroparesis would likely need a workup of gastric emptying study. We can get a hemoglobin A1c. I will discuss this with the hospitalist service as well as the ER doctors. [id number]/[facility] #: [id number] MARY
--- NOTE | 2017-07-21 14:13 | RAD ---
INDICATION: Abdominal pain. Comparison: Correlation is made with prior CT of the abdomen and pelvis and right upper quadrant ultrasound from July 21 2017. Technique: The patient was given an intravenous injection of 6.1 mCi of technetium 99m Choletec intravenously and multiple images of the right upper quadrant were obtained. FINDINGS: The images demonstrate uptake of the radiopharmaceutical by the liver. There is also prompt visualization of the extrahepatic bile ducts and gallbladder. There is normal visualization of the small bowel. IMPRESSION: NORMAL VISUALIZATION OF THE GALLBLADDER NO EVIDENCE FOR ACUTE CHOLECYSTITIS.
[2017-07-21 14:28] LABS: Hematocrit 38 % (42-52); Hemoglobin 13.2 g/dl (14.0-18.0); Mean Corpuscular HGB Conc 34 g/dl (31-36); Mean Corpuscular Hemoglobin 31 pg (27-31); Mean Corpuscular Volume 90 fL (80-94); Mean Platelet Volume 7 um3 (7.4-10.4); Platelet Count 110 10^3/ul (150-450); Red Blood Count 4.24 10^6/ul (4.0-5.4); Red Cell Distribution Width 14 % (10.5-15); White Blood Count 4.9 10^3/ul (3.5-10.8)
[2017-07-21] MEDS: Morphine INJ* 2 MG/ML 1 ML SYRINGE (TWO MG - NEW SYRINGE VERSION) IV PRN (14:54)
[2017-07-21] MEDS ORDERED: Fluticasone NASAL SPRAY 50MCG* 16 gm SPRAY BTL BOTH NARES PRN (15:37)
[2017-07-21] MEDS ORDERED: Albuterol HFA INHALER* 8 gm MDI INH PRN (15:37)
[2017-07-21] MEDS ORDERED: Dextrose 50% Syringe 50 ML* 25 GM/50 ML SYRINGE IV PUSH PRN (15:39)
[2017-07-21] MEDS ORDERED: Magnesium Hydroxide LIQ* 30 ML UDC PO ONE (16:21)
[2017-07-21] MEDS ORDERED: Ondansetron INJ* 2 MG/ML VIAL IV PRN (16:23)
[2017-07-21] MEDS ORDERED: NS 0.9% 1000 ML* 1,000 ML IV SCH (16:30)
[2017-07-21] MEDS: Insulin LISPRO* 1 UNITS UNIT SUBCUT SCH ×2 (16:42→21:31)
[2017-07-21] MEDS ORDERED: oxyCODONE/Acetamin 10/325(NF) TAB PO SCH (17:00)
[2017-07-21] MEDS: oxyCODONE TAB* 5 MG TAB PO SCH ×2 (17:19→21:34)
[2017-07-21] MEDS: sulfaSALAzine TAB* 500 MG PO SCH ×2 (17:20→21:49)
[2017-07-21] MEDS: Acetaminophen TAB* 325 MG PO SCH ×2 (17:21→21:37)
[2017-07-21] MEDS ORDERED: Montelukast Sodium TAB* 10 MG PO SCH (18:00)
[2017-07-21] MEDS: Mometasone/Formoter 100/5 MDI INH SCH (19:57)
[2017-07-21] MEDS ORDERED: Diltiazem CD CAP* 120 MG PO SCH (21:00)
[2017-07-21] MEDS ORDERED: Triamterene/HCTZ 37.5-25 MG* CAP PO SCH (21:00)
[2017-07-21] MEDS: Morphine TAB Extended Release (*) 15 MG TAB.ER PO SCH (21:35)
[2017-07-21] MEDS: Gabapentin CAP(*) 300 MG PO SCH (21:36)
[2017-07-21] MEDS: Senna TAB PO SCH (21:37)
[2017-07-21] MEDS: Docusate CAP* 100 MG PO SCH (21:37)
[2017-07-21] MEDS: Heparin VIAL(*) 5000 UNITS/ML VIAL (FIVE THOUSAND) SUBCUT SCH (21:39)
[2017-07-21] MEDS: APREMILAST 30 MG PO SCH (21:42)
[2017-07-21] MEDS: GuaiFENesin DM* 5 ML UDC PO PRN (21:49)
--- NOTE | 2017-07-22 02:31 | HP ---
Cc: Dr. Alejandra; Dr. Palomo; Dr. Shrestha at [facility] * HISTORY AND PHYSICAL: DATE OF ADMISSION: 07/21/17 PRIMARY CARE PROVIDER: Dr. Shrestah at [facility]. He is also followed by Dr. Palomo, Dr. Alejandra and Dr. Crump. CHIEF COMPLAINT: Abdominal pain. HISTORY OF PRESENT ILLNESS: Sekou Berry is a 51-year-old male with history of morbid obesity, obstructive sleep apnea, COPD, hypertension, diabetes who presents to the hospital complaining of abdominal pain. The patient stated that due to his use of narcotics due to chronic pain syndrome, he had been constipated. He stated that he has not had a "decent bowel movement for 3 weeks." He stated that he would have an occasional very small bowel movement. Today he had a "watery bowel movement" in the emergency department. He stated over the past 7 days, he was having abdominal pain that he described in his mid abdomen approximately 10 cm above his umbilicus, nonradiating, worsening with cough that had been ongoing for 2 days. The patient also stated for the past 2 days, he had been having intermittent nausea and vomiting and very poor p.o. intake, although when he was in the emergency department he was given a sandwich and he ate it without any recurrence of nausea. He was evaluated by Dr. Alejandra from Surgery who recommended observation and possibility of gastric emptying study. The patient is going to be placed on observation. PAST MEDICAL HISTORY: 1. Morbid obesity. 2. History of diabetes type 2. 3. COPD, not oxygen dependent. 4. History of hypertension. 5. Obstructive sleep apnea, on CPAP. 6. Gastroesophageal reflux disease. 7. History of chronic pain including lower back pain. 8. Appendectomy. 9. History of GI bleed due to duodenal ulcer requiring transfusions in 1995. CURRENT MEDICATIONS: Includes: 1. Clobetasol on a p.r.n. basis for skin. 2. Bupropion XL 300 mg daily. 3. Apremilast 30 mg b.i.d. 4. Albuterol inhaler on a p.r.n. basis. 5. Meloxicam 7.5 mg daily. 6. Gabapentin 600 mg 4 times a day. 7. Flonase nasal spray, one spray both nostrils daily. 8. Breo Ellipta 200/25 one puff inhalation daily. 9. Diltiazem 60 mg b.i.d. 10. Senna one tablet every other day. 11. Morphine sulfate 15 mg b.i.d. 12. Singulair 10 mg daily. 13. Glipizide 10 mg b.i.d. 14. Dyazide 37.5/25 one capsule daily. 15. Sulfasalazine 500 mg 4 times a day. 16. Percocet 10/325 up to 4 times a day p.r.n. ALLERGIES: No known drug allergies. FAMILY HISTORY: Positive for mother with history of brain aneurysm. Father with history of congestive heart failure who of heart disease. Sister with history of renal cancer. SOCIAL HISTORY: The patient has history of [id number] smoking, quit 3 years ago. He denies any alcohol or drug use. He lives with his cousin and for his surrogate he would like to use both his female cousin, Maryellen Blackmon, and his mother, Merry Manuel. REVIEW OF SYSTEMS: On review of systems, the patient stated once again that he has been constipated for 3 weeks and he had "watery bowel movement" in the emergency department today. Otherwise, he would have very small bowel movements in the past 3 weeks. The pain occurred approximately 7 days ago and got worse when he started coughing 2 days ago. The patient has a history of chronic lower back pain and bilateral lower extremity pain that has been unchanged. He uses CPAP at night. All the remaining 12 systems reviewed with the patient and were otherwise negative. PHYSICAL EXAMINATION GENERAL: The patient is a pleasant 51-year-old male with a BMI of 40. The patient is in no acute distress. Alert, awake and oriented x3. VITAL SIGNS: Blood pressure 146/88, heart rate of 92 and regular, respiratory rate 20, oxygen saturation 95% on room air, temperature 99.0. HEENT: Head atraumatic, normocephalic. Eyes: Pupils are reactive to light and accommodation. Oropharynx clear. Mucosa moist. NECK: Supple. No JVD, no bruit bilaterally. RESPIRATORY: Clear to auscultation bilaterally. CARDIOVASCULAR: Regular rate and rhythm. No murmur. ABDOMEN: Very obese, distended, soft, minimally tender in the area of half way between the xiphoid process of the sternum and the umbilicus. There was no rebound, no guarding, and bowel sounds were present in all 4 quadrants. EXTREMITIES: There is trace bilateral pedal edema, pulses +2 bilaterally. No clubbing, cyanosis. NEUROLOGIC: On neuro evaluation, speech is clear. Cranial nerves II through XII grossly intact. Motor strength is 5/5 bilaterally. SKIN: On evaluation of the skin, no ecchymotic areas or rashes noted. LABORATORY DATA: Urinalysis showed +1 protein, trace leukocyte esterase. Sodium was 134, potassium 3.5, chloride 99, carbon dioxide 28, BUN is 13, creatinine 1.01. Liver function tests: Unremarkable. Initial lipase was 190, repeat lipase was 40. C-reactive protein was 37. AST was 73 and once again remaining liver function tests were unremarkable. White blood cell count 4.9, hemoglobin of 13.2, hematocrit of 38 and platelets of 110. The patient had a HIDA scan obtained today, which showed, impression: "Normal visualization of the gallbladder with no evidence of acute cholecystitis." CT of the abdomen and pelvis obtained today, impression: "Findings suggestive of cirrhosis and portal hypertension. Distended gallbladder may represent early acute cholecystitis or n.p.o. status. Recommend a right upper quadrant ultrasound for further evaluation." The patient also had consultation with Dr. Alejandra who recommended gastric emptying study and possibility of upper endoscopy. ASSESSMENT/PLAN: 1. Abdominal pain. Interestingly enough, the abdominal pain is mostly related to patient's cough and movement. It appears to be related to possible internal hernia. After visualization of patient's CT scan, there is no suggestion of hernia. Also, the surgical evaluation with Dr. Alejandra does not suggest that. Anyway patient is going to be placed on overnight observation with clear liquid diet and intravenous hydration. I will obtain a gastric emptying study in the morning. 2. In regards to patient's diabetes, patient is going to be placed on insulin sliding scale with Lispro. I will also obtain hemoglobin A1c since patient's Glucophage had been discontinued in the past. 3. In regards to his chronic pain, the patient is going to be continued on his chronic medications in addition to IV morphine that is going to be provided p.r.n. 4. For his obstructive sleep apnea, CPAP is going to be provided. 5. For his hypertension, Cardizem is going to be provided. I will switch him to Cardizem CD at 120 mg daily. 6. The patient's chronic obstructive pulmonary disease does not appear to be in exacerbation and chronic medications are going to be continued. His inhaler is going to be replaced with Dulera that is on hospital's formulary. 7. For DVT prophylaxis, the patient is going to be placed on heparin subcutaneously. 8. The patient's code status is full and his surrogate is his mother as well as his female cousin. TIME SPENT: Approximately 62 minutes were spent on admission of this patient, more than half that time was spent [id number] with the patient during the interview and physical exam. [id number]/CPS #: [id number] MTDD
[2017-07-22] MEDS: GuaiFENesin DM* 5 ML UDC PO PRN (04:11)
[2017-07-22] MEDS: Heparin VIAL(*) 5000 UNITS/ML VIAL (FIVE THOUSAND) SUBCUT SCH ×2 (06:23→14:22)
[2017-07-22 07:12] LABS: ABS Basophils 0 10^3/ul (0-0.2); ABS Eosinophils 0.2 10^3/ul (0-0.6); ABS Lymphocytes 1.4 10^3/ul (1.0-4.8); ABS Monocytes 0.8 10^3/ul (0-0.8); ABS Neutrophils 2.6 10^3/ul (1.5-7.7); ABS Nucleated RBC 0 10^3/ul; Eosinophil % 3.1 % (0-6); Hematocrit 39 % (42-52); Hemoglobin 13.6 g/dl (14.0-18.0); Lymphocyte % 28.6 % (25-47); Mean Corpuscular HGB Conc 35 g/dl (31-36); Mean Corpuscular Hemoglobin 32 pg (27-31); Mean Corpuscular Volume 91 fL (80-94); Mean Platelet Volume 7 um3 (7.4-10.4); Nucleated Red Blood Cells % 0.2; Platelet Count 112 10^3/ul (150-450); Red Blood Count 4.28 10^6/ul (4.0-5.4); Red Cell Distribution Width 14 % (10.5-15); White Blood Count 4.9 10^3/ul (3.5-10.8)
[2017-07-22] MEDS: Mometasone/Formoter 100/5 MDI INH SCH ×2 (07:37→21:53)
[2017-07-22 07:38] LABS: EGFR Non-African American 86.7 (>60)
[2017-07-22] MEDS: Morphine INJ* 2 MG/ML 1 ML SYRINGE (TWO MG - NEW SYRINGE VERSION) IV PRN ×2 (08:32→13:07)
[2017-07-22] MEDS ORDERED: BuPROPion XL* 300 MG TAB.XL PO SCH (09:00)
[2017-07-22] MEDS: sulfaSALAzine TAB* 500 MG PO SCH ×2 (09:00→14:20)
[2017-07-22] MEDS: Insulin LISPRO* 1 UNITS UNIT SUBCUT SCH ×2 (09:02→12:13)
[2017-07-22] MEDS: Gabapentin CAP(*) 300 MG PO SCH ×2 (09:04→14:08)
[2017-07-22] MEDS: Acetaminophen TAB* 325 MG PO SCH ×2 (09:04→14:09)
[2017-07-22] MEDS: oxyCODONE TAB* 5 MG TAB PO SCH ×2 (09:05→14:10)
--- NOTE | 2017-07-22 09:23 | PN ---
Progress Note - Progress Note Date of Service: 07/22/17 SOAP: Subjective: Patient seen and examined at bedside. Reports doing a little better today. Epigastric pain only elicited by coughing or using his abdominal muscles. Denies nausea or vomiting last night. Has remote hx PUD in his 20s, last EGD 2 years ago per patient. Objective: Awake and alert, comfortable in bed. VSS, afebrile Abdomen soft, round and obese, NT and ND. No guarding or rigidity, negative Casas's sign. Lungs with diffuse wheezing noted. Heart RRR Ext. without edema Assessment: A 51 y/o male with upper abdominal pain, N/V, negative workup for gallbladder disease and remote hx PUD. Plan: Discussed with patient possible etiology of his abd pain I would recommend GI consult, possible EGD plans giving his hx No surgical indications at this time
[2017-07-22 11:37] VITALS: BP 144/86
[2017-07-22] MEDS: APREMILAST 30 MG PO SCH (14:12)
[2017-07-22] MEDS: Morphine TAB Extended Release (*) 15 MG TAB.ER PO SCH (14:18)
[2017-07-22] MEDS: Senna TAB PO SCH (14:20)
[2017-07-22] MEDS: Docusate CAP* 100 MG PO SCH (14:21)
--- NOTE | 2017-07-22 14:26 | PN ---
Subjective Date of Service: 07/22/17 Interval History: Pt is feeling ok. He states he tried to eat some of his lunch but felt nauseous after eating some of the beef. He did not vomit. He agrees that he is very constipated. He states he has not had a BM in a couple days (had a watery stool in ER). He thinks he can manage at home and understands if his symptoms change or worsen he can come back to the ER for re-evaluation. Objective Active Medications: Acetaminophen (Tylenol Tab*) 325 mg PO QID [facility] Last Admin: 07/22/17 14:09 Dose: 325 mg Albuterol (Ventolin Hfa Inhaler*) 1 puff INH QID PRN PRN Reason: SHORTNESS OF BREATH Apremilast (Otezla (Nf)) 30 mg PO BID [facility] Last Admin: 07/22/17 14:12 Dose: Not Given Bupropion HCl (Bupropion Xl*) 300 mg PO QAM [facility] Last Admin: 07/22/17 14:09 Dose: 300 mg Dextrose (D50w Syringe 50 Ml*) 12.5 gm IV PUSH .FOR FS < 60 - SS PRN PRN Reason: FS < 60 Diltiazem HCl (Cardizem Cd Cap*) 120 mg PO 2100 [facility] Last Admin: 07/21/17 21:33 Dose: 120 mg Docusate Sodium (Colace Cap*) 100 mg PO BID [facility] Last Admin: 07/21/17 21:37 Dose: 100 mg Fluticasone Propionate (Flonase Nasal Sterrett 50mcg*) 1 spray BOTH NARES DAILY PRN PRN Reason: NASAL SYMPTOMS Gabapentin (Neurontin Cap(*)) 600 mg PO QID [facility] Last Admin: 07/22/17 14:08 Dose: 600 mg Guaifenesin/Dextromethorphan (Robitussin Dm*) 5 ml PO Q4H PRN PRN Reason: COUGH Last Admin: 07/22/17 04:11 Dose: 5 ml Heparin Sodium (Porcine) (Heparin Vial(*)) 5,000 units SUBCUT Q8HR [facility] Last Admin: 07/22/17 06:23 Dose: 5,000 units Sodium Chloride (Ns 0.9% 1000 Ml*) 1,000 mls @ 100 mls/hr IV PER RATE [facility] Last Admin: 07/21/17 21:51 Dose: 100 mls/hr Insulin Human Lispro (Humalog*) 0 units SUBCUT ACHS [facility] PRN Reason: Protocol Last Admin: 07/22/17 12:13 Dose: Not Given Mometasone Furoate/Formoterol Fumar (Dulera 100/5 Mdi*) 2 puff INH BID [facility] Last Admin: 07/22/17 07:37 Dose: Not Given Montelukast Sodium (Singulair Tab*) 10 mg PO QPM [facility] Last Admin: 07/21/17 22:44 Dose: 10 mg Morphine Sulfate (Morphine Inj (Syringe)*) 1 mg IV Q4H PRN PRN Reason: PAIN Last Admin: 07/22/17 13:07 Dose: 1 mg Morphine Sulfate (Ms Contin(*)) 15 mg PO BID [facility] Last Admin: 07/21/17 21:35 Dose: 15 mg Ondansetron HCl (Zofran Inj*) 4 mg IV Q4H PRN PRN Reason: NAUSEA/VOMITING Oxycodone HCl (Roxycodone Tab*) 10 mg PO QID [facility] Last Admin: 07/22/17 14:10 Dose: 10 mg Senna (Senokot Tab*) 1 tab PO BID [facility] Last Admin: 07/21/17 21:37 Dose: 1 tab Sulfasalazine (Azulfidine Tab*) 500 mg PO QID [facility] Last Admin: 07/21/17 21:49 Dose: 500 mg Triamterene/HCTZ (Dyazide Cap*) 1 cap PO 2100 [facility] Last Admin: 07/21/17 21:33 Dose: 1 cap Vital Signs - 8 hr 07/22/17 07/22/17 07/22/17 07:31 08:32 09:35 Temperature 98.9 F Pulse Rate 80 Respiratory 20 16 16 Rate Blood Pressure 153/90 (mmHg) O2 Sat by Pulse 94 Oximetry 07/22/17 07/22/17 07/22/17 11:23 11:30 13:07 Temperature 98.5 F Pulse Rate 77 Respiratory 16 16 Rate Blood Pressure 182/99 144/86 (mmHg) O2 Sat by Pulse 93 Oximetry 07/22/17 07/22/17 14:08 14:10 Temperature Pulse Rate Respiratory 16 16 Rate Blood Pressure (mmHg) O2 Sat by Pulse Oximetry Oxygen Devices in Use Now: None Appearance: Middle aged male sitting up in bed, NAD Eyes: No Scleral Icterus Ears/Nose/Mouth/Throat: Mucous Membranes Moist Respiratory: Symmetrical Chest Expansion and Respiratory Effort, Clear to Auscultation Cardiovascular: NL Sounds; No Murmurs; No JVD, RRR, No Edema Abdominal: - - BS hypoactive, soft, NT, mildly distended Extremities: No Clubbing, Cyanosis Skin: No Rash or Ulcers, No Nodules or Sclerosis Neurological: Alert and Oriented x 3 Result Diagrams: 07/22/17 06:55 07/22/17 06:55 Assess/Plan/Problems-Billing Mr Berry is a 51 yo M who has a h/o chronic pain on chronic narcotic therapy, DM2 (recently diagnosed), COPD, ALURITA and HTN who presented to the ER with c/o abdominal pain. - Patient Problems (1) Abdominal pain Current Visit: Yes Status: Acute Code(s): R10.9 - UNSPECIFIED ABDOMINAL PAIN SNOMED Code(s): 32833547 Comment: Pain is periumbilical with coughing. I suspect this is musculoskeletal in nature. No further work up at this time. (2) Constipation Current Visit: Yes Status: Acute Code(s): K59.00 - CONSTIPATION, UNSPECIFIED SNOMED Code(s): 34202662 Comment: I suspect the patient's abdominal distention and nausea with eating likely related to constipation secondary to his narcotic use. He has tried some medications for his bowels but nothing aggressive. We have talked about using miralax, senna and colace together to see if he can get his bowels moving. I question if relistor may be an option for him. He can discuss with his PCP. 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 (3) COPD (chronic obstructive pulmonary disease) Current Visit: Yes Status: Acute Code(s): J44.9 - CHRONIC OBSTRUCTIVE PULMONARY DISEASE, UNSPECIFIED SNOMED Code(s): 30898294 Comment: No signs of exacerbation. Continue breo ellipta, albuterol and singulair. (4) HTN (hypertension) Current Visit: Yes Status: Acute Code(s): I10 - ESSENTIAL (PRIMARY) HYPERTENSION SNOMED Code(s): 66998434 Comment: BP is under fair control. Continue current medication regimen. (5) DVT prophylaxis Current Visit: Yes Status: Acute Code(s): NWC1899 - SNOMED Code(s): 406163802 Comment: SQ heparin. (6) Full code status Current Visit: Yes Status: Acute Code(s): Z78.9 - OTHER SPECIFIED HEALTH STATUS SNOMED Code(s): 884960592
[2017-07-23] MEDS ORDERED: Senna TAB PO SCH (09:00)
--- NOTE | 2017-07-23 17:43 | DS ---
CC: Dr. Mcclain; Dr. Shrestha DISCHARGE SUMMARY: DATE OF ADMISSION: 07/21/17 DATE OF DISCHARGE: 07/22/17 PRIMARY CARE PROVIDER: Dr. Shrestha. PRINCIPAL DIAGNOSIS: Abdominal pain of unclear etiology though likely secondary to narcotic bowel sy ndrome. SECONDARY DIAGNOSES: 1. Chronic obstructive pulmonary disease. 2. Hypertension. 3. Type 2 diabetes. DISCHARGE MEDICATIONS: 1. Clobetasol apply topically q.h.s. 2. Wellbutrin XL 300 mg p.o. daily. 3. Otezla 30 mg p.o. b.i.d. 4. Albuterol 1 to 2 puffs inhaled q.4 hours p.r.n. shortness of breath. 5. Meloxicam 7.5 mg p.o. q.h.s. 6. Gabapentin 600 mg p.o. 4 times daily. 7. Flonase 50 mcg to both nostrils daily p.r.n. allergies. 8. Breo Ellipta 200/25 one puff inhaled daily. 9. Diltiazem ER 60 mg p.o. twice daily. 10. Senna 1 to 2 tabs p.o. twice daily p.r.n. constipation. 11. MS Contin 15 mg p.o. b.i.d. 12. Singulair 10 mg p.o. q.h.s. 13. Glipizide 10 mg p.o. b.i.d. 14. Triamterene and hydrochlorothiazide 37.5/25 one cap p.o. daily. 15. Sulfasalazine 500 mg p.o. 4 times daily. 16. Percocet 10/325 one tab p.o. 4 times daily. 17. Metformin 500 mg p.o. t.i.d. HOSPITAL COURSE: Mr. Berry is a 51-year-old male, who has a history of chronic pain for which he is on long-acting morphine and p.r.n. Percocet, who presents to the emergency room with complaints of ab dominal pain. The patient was worked up for possible gallbladder disease with a gallbladder ultrasou nd and HIDA scan. These were both negative for signs of cholecystitis. There was a question of possi ble poor gastric emptying related to his history of diabetes; however, my concern is that the patient is likely more suffering from narcotic bowel syndrome. The patient states he has not had a normal federica wel movement in the last 3 weeks. The patient was recommended to aggressively treat his constipation with Colace, senna, and MiraLAX at home. The patient agrees to this plan. He does have some mild n ausea upon eating. However, I suspect this is again likely related to severe constipation. Given, t he patient's history of peptic ulcer disease and complaint of epigastric pain, during the course of h is hospitalization, a GI followup appointment has been made for tomorrow, 07/23/17, at 3:30 p.m. I d o question if the patient may benefit from an EGD. The patient's abdominal pain that he describes du ring this hospitalization most of the time is associated with coughing. This seems to be likely muscu loskeletal in nature. At this point, it is felt that the patient is stable for discharge home. He w ill advance his diet as tolerated and again aggressively work on his bowel regimen. FOLLOWUP CONCERNS: The patient is being discharged home today, 07/22/17. He is to follow up with Dr Nain Shrestha on 07/26/17 at 9 a.m. and with Natty Comer NP, at 3:30 p.m. on 07/23/17. ACTIVITY LEVEL: As tolerated. DIET: Diabetic, as tolerated. CONDITION ON DISCHARGE: Stable. TIME SPENT: Thirty-five minutes was spent discharging this patient. [id number]/[facility] #: [id number]
== END 2017-07-22 15:40 | disposition home or self-care (01) ==
LOC: ED 21:39 → MED 07-21 12:41
PROVIDERS: ADMIT Internal Medicine; ATTEND Hospitalist
DX: R10.30 Lower abdominal pain, unspecified (principal); R10.2 Pelvic and perineal pain; E11.9 Type 2 diabetes mellitus without complications; I10 Essential (primary) hypertension; K59.00 Constipation, unspecified; E66.01 Morbid (severe) obesity due to excess calories; K21.9 Gastro-esophageal reflux disease without esophagitis; G89.29 Other chronic pain; K81.9 Cholecystitis, unspecified; L40.50 Arthropathic psoriasis, unspecified; I20.9 Angina pectoris, unspecified; R11.2 Nausea with vomiting, unspecified; R16.0 Hepatomegaly, not elsewhere classified; Z79.899 Other long term (current) drug therapy; Z87.891 Personal history of nicotine dependence
CPT/HCPCS: 36415; 74177; 76705; 78226; 80053; 81003; 81015; 82150; 82270; 83036; 83605; 83690; 83735; 85025; 85027; 86140; 87086; 96361; 96374; 96375; 96376; 99284; A9270-GY; A9537; G0378; J1644; J2270; J2405; Q9967

== ENCOUNTER 2017-10-18 06:22 | Day surgery (SDC) | payer OTHER ==
[~2017-10-18 06:22] MED LIST changes: +Buffered Lidocaine 0.9% SYRIN* 5 ML/SYR SYRINGE INTRADERM ONE; +Famotidine IV* 10 MG/ML 2 ML (20 mg) IV ONE; +Famotidine IV* 10 MG/ML 2 ML (20 mg) ONE; -Ketorolac INJ* 30 MG/ML 1 ML VIAL IV PUSH ONE; -Morphine INJ* 4 MG/ML 1 ML SYRINGE IV ONE; -Morphine INJ* 4 MG/ML 1 ML SYRINGE SUBCUT ONE; -Ondansetron INJ* 2 MG/ML VIAL IV ONE
[2017-10-18] MEDS ORDERED: Propofol* 10 MG/ML 20 ML BTL IV PUSH ONE (07:47)
[2017-10-18] MEDS ORDERED: Midazolam* 1 MG/ML 5 ML VIAL (5 MG) ONE (07:47)
[2017-10-18] MEDS ORDERED: Propofol* 500 MG/50 ML BTL ONE (07:47)
[2017-10-18] MEDS ORDERED: Lidocaine 2% PF * 5 ML VIAL ONE (07:47)
[2017-10-18] MEDS ORDERED: fentaNYL* 50 MCG/ML 2 ML VIAL (100 MCG VIAL) ONE (07:48)
[2017-10-18] MEDS ORDERED: KETAMINE HCL* 50 MG/ML 10 ML VIAL ONE (07:53)
[2017-10-18] MEDS ORDERED: HYDROcodone/ACETAMIN 5-325 MG* 1 TAB PO PRN (08:51)
[2017-10-18] MEDS ORDERED: DiMENhydriNATE IV* 50 MG/ML VIAL IV PUSH PRN (08:51)
[2017-10-18] MEDS ORDERED: Naloxone* 0.4 MG/ML 1 ML VIAL IV PRN (08:51)
[2017-10-18] MEDS ORDERED: Ondansetron INJ* 2 MG/ML VIAL IV PRN (08:51)
[2017-10-18] MEDS ORDERED: fentaNYL* 50 MCG/ML 2 ML VIAL (100 MCG VIAL) IV PRN (08:51)
[2017-10-18] MEDS ORDERED: oxyCODONE/Acetamin 5/325 MG* TAB PO PRN (08:51)
[2017-10-18 09:23] VITALS: BP 156/94
--- NOTE | 2017-10-18 16:48 | PRO ---
CC: Dr. Shrestha * DATE OF PROCEDURE: 10/18/17 PROCEDURE: Colonoscopy. INDICATION: Screening, increased risk, history of polyps, history of incomplete colonoscopy terminated secondary to very poor prep and incomplete sedation due to the patient's medication use, for this colonoscopy we did need to use anesthesia services given the patient's medication history and poor compliance with sedation last time. MEDICATIONS GIVEN: Per Anesthesia. DESCRIPTION OF PROCEDURE: After the colonoscopy procedure, including the risks , benefits, and alternatives, not limited to perforation, surgery, and/or were explained to the patient, written consent was then obtained, IV medication was given, and a rectal exam was performed. The rectal exam was unremarkable. An Olympus colonoscope was then inserted into the patient's rectum and advanced very carefully through the entirety of the colon and into the cecal base. Careful and thorough inspection within the cecal base did not reveal any abnormalities; however, the quality of the preparation again was fair to poor. This time around no solid stool, but a very large amount of liquid stool. I did try and suction and wash as much of this as I could; however, small lesions very well could have been missed. Given the patient's morbidly obese body habitus and previous surgeries, it also was a slightly difficult colonoscopy, it did require external hand support provided by my nursing staff. At 80 cm from the anal verge in the ascending colon, there was a polyp, removed with snare polypectomy, adequate hemostasis was achieved and the specimen was retrieved. Scope was then withdrawn through the remainder of the colon. No other abnormalities were seen, but again the quality of the preparation was very poor. In the rectum, retroflexion maneuver revealed internal hemorrhoids, scope was withdrawn from the patient. He tolerated the procedure well, he was returned to recovery room in stable condition. IMPRESSION: 1. Complete colonoscopy into the cecum with snare polypectomy. 2. Single colon polyp, status post snare polypectomy. 3. I would recommend a repeat colonoscopy in 5 years from now if the polyp is adenomatous, 10 years if hyperplastic. [id number]/CPS #: [id number] [facility]
== END 2017-10-18 09:54 | disposition home or self-care (01) ==
LOC: OR 06:22
PROVIDERS: ATTEND Internal Medicine Gastroenterology
DX: D12.2 Benign neoplasm of ascending colon (principal); Z86.010 Personal history of colon polyps
CPT/HCPCS: 88305; J2250; J2704; J3010

== ENCOUNTER 2017-11-26 07:04 | Day surgery (SDC) | payer OTHER ==
--- NOTE | 2017-11-18 15:54 | HP ---
PREOPERATIVE HISTORY AND PHYSICAL: DATE OF SURGERY/ADMISSION: 11/26/17 - [facility] DATE OF OFFICE VISIT/ENCOUNTER: 11/06/17 ATTENDING SURGEON: Karely Maldonado MD.* (DICTATED BY SAMSON PARADA) PROCEDURE: Excision mass, right long finger. CHIEF COMPLAINT: Lump on right long finger. HISTORY OF PRESENT ILLNESS: This is a 52-year-old male who complains of a lump on his right middle finger that has been present for a month or so. It is located right at the MP flexion crease and it bothers him when he title closer on to things or when he drives. He denies any known injury. He denies any associated numbness or tingling. He is interested in having the mass removed. The patient has chronic back pain and is a patient of the pain clinic, prescribed narcotics regularly. PAST MEDICAL HISTORY: 1. Diabetes mellitus 2. 2. Chronic back pain. 3. Hypertension. 4. COPD. 5. Sleep apnea with CPAP. 6. Inflammatory arthritis. 7. Psoriatic arthritis. 8. Anxiety/depression. 9. GERD. 10. Obesity. PAST SURGICAL HISTORY: 1. Inguinal hernia repair x2. 2. Appendectomy. 3. Right wrist ganglion excision. CURRENT MEDICATIONS: 1. Biotene dry mouthwash. 2. Bupropion HCl ER, XL 300 mg daily. 3. Diltiazem HCl ER 60 mg b.i.d. 4. Docusate sodium 100 mg b.i.d. 5. Fiber laxative 0.52 g b.i.d. 6. Fluticasone propionate 50 mcg/act 2 sprays each nostril daily. 7. Folic acid 1 mg daily. 8. Gabapentin 300 mg daily. 9. Glipizide 500 mg b.i.d. 10. Lisinopril 20 mg daily. 11. Magnesium 250 mg daily. 12. Melatonin 1 mg daily. 13. Meloxicam 7.5 mg daily. 14. Metformin HCl ER 500 mg 3 times a day. 15. Montelukast sodium 10 mg daily. 16. Morphine sulfate 15 mg twice a day. 17. Otezla 30 mg twice a day. 18. Oxycodone/acetaminophen 10 mg 1 tab 4 times a day. 19. Senna laxative 8.6 mg twice a day. 20. Spiriva Respimat 1.25 mcg/act. 21. Sulfasalazine 500 mg 4 tabs daily. 22. Triamterene/hydrochlorothiazide 37.5/25 daily. 23. Fentanyl HFA inhaler p.r.n. ALLERGIES: No known drug allergies. FAMILY MEDICAL HISTORY: COPD, CHF, cancer. SOCIAL HISTORY: The patient is disabled. He is a former smoker. He quit approximately 3 years ago. Prior to that, he smoked 2 packs per day for 30+ years. He denies recreational drug use. He does not drink alcohol. Reports he stopped drinking in 2005. REVIEW OF SYSTEMS: General: Negative for fevers, chills, night sweats, unexplained weight loss or gain. No known anesthesia problems. HEENT: Negative for headache, lightheadedness, syncopal episodes, visual changes. Integumentary: Negative for abrasions, lesions, or open wounds. Cardiothoracic : Negative for hypertension, chest pain, edema. Respiratory: Positive for shortness of breath with exertion. Negative for chronic cough, wheezing. GI: Negative for nausea, vomiting, diarrhea, constipation. Positive for GERD. : Negative for nocturia, urinary frequency, urgency, history of UTIs, or kidney problems. Musculoskeletal: Positive for current complaint. Positive for chronic back pain. Neurological: Negative for paresthesias, numbness, history of seizure, stroke, poor balance. Positive for anxiety/depression. Endocrine: Positive for diabetes. Negative for thyroid issues. Hematologic: Negative for easy bruising, anemia, bleeding disorders, history of DVT. Infectious Disease: Negative for history of MRSA, hepatitis C, HIV. PHYSICAL EXAMINATION GENERAL: Well-developed, well-nourished 52-year-old male in no acute distress. VITAL SIGNS: Height 5 feet 8-1/2 inches, weight 275 pounds, pulse rate 88, blood pressure 118/74. HEENT: Normocephalic, atraumatic. Pupils are equal, round, and reactive to light and accommodation. Extraocular movements are intact. Throat is clear. NECK: Supple. No palpable lymph nodes. PULMONARY: Lungs are clear to auscultation bilaterally. No wheezes, rales, or rhonchi. CARDIOVASCULAR: Regular rate and rhythm. S1, S2. No murmurs, rubs, or gallops. No edema. ABDOMEN: Positive bowel sounds, soft, nontender. NEUROLOGICAL: Alert and oriented x3. Cranial nerves II through XII are intact. Sensation is intact to light touch. MUSCULOSKELETAL: On exam of his right hand, he has a small cystic mass at the MP flexion crease of the right middle finger. It is tender to palpation. It does not restrict his range of motion. He has full flexion and full extension. Neurovascular function is intact. Negative Tinel's at the cyst. IMAGING STUDIES: X-rays, AP, lateral, and oblique of the right middle finger appear normal. IMPRESSION: Right middle finger ganglion cyst. PLAN: The patient is scheduled to undergo an excision mass, right long finger on 11/19/[address] Maldonado. He will return to the office in 10 days postop for followup and suture removal. He has narcotic pain medications as prescribed by the pain clinic that he will use to manage his postoperative pain. SAMSON PARADA [id number]/[facility] #: [id number] MARY
[~2017-11-26 07:04] MED LIST changes: -Famotidine IV* 10 MG/ML 2 ML (20 mg) ONE
[2017-11-26] MEDS ORDERED: Famotidine IV* 10 MG/ML 2 ML (20 mg) ONE (07:15)
[2017-11-26] MEDS ORDERED: Lidocaine 1% INJ* 10 MG/ML 30 ML SDV ONE (07:55)
[2017-11-26] MEDS ORDERED: Midazolam* 1 MG/ML 5 ML VIAL (5 MG) ONE (08:05)
[2017-11-26] MEDS ORDERED: fentaNYL* 50 MCG/ML 2 ML VIAL (100 MCG VIAL) ONE (08:05)
[2017-11-26] MEDS ORDERED: KETAMINE HCL* 50 MG/ML 10 ML VIAL ONE (08:05)
[2017-11-26] MEDS ORDERED: DiMENhydriNATE IV* 50 MG/ML VIAL IV PUSH PRN (08:45)
[2017-11-26] MEDS ORDERED: Acetaminophen TAB* 325 MG PO PRN (08:45)
[2017-11-26] MEDS ORDERED: Naloxone* 0.4 MG/ML 1 ML VIAL IV PRN (08:45)
[2017-11-26] MEDS ORDERED: Ketorolac INJ* 30 MG/ML 1 ML VIAL ONE (09:05)
[2017-11-26] MEDS ORDERED: Propofol* 10 MG/ML 20 ML BTL IV PUSH ONE (09:05)
[2017-11-26] MEDS ORDERED: Lidocaine 2% PF * 5 ML VIAL ONE (09:05)
[2017-11-26 09:40] VITALS: BP 119/62
--- NOTE | 2017-11-27 02:09 | OP ---
CC: Dr. Maldonado OPERATIVE REPORT: DATE OF OPERATION: 11/26/17 DATE OF : 65 SURGEON: Karely Maldonado MD DOBIE WORKER: SAMSON Davenport ANESTHESIA: Local MAC. PRE-OP DIAGNOSIS: Right long finger mass. POST-OP DIAGNOSIS: Right long finger mass. OPERATIVE PROCEDURE: Removal of right long finger mass. ESTIMATED BLOOD LOSS: Zero. TOURNIQUET TIME: About 10 minutes. INDICATIONS FOR PROCEDURE: Sekou is a 52-year-old man who has a painful mass at the MP flexion creas e of his right long finger. He presents for removal. Clinically, it is a ganglion cyst. DESCRIPTION OF PROCEDURE: The patient was brought to the operating room, was given a sedation anesth etic and a local infiltration of 10 cc of 1% plain lidocaine in the palm of his right hand overlying the mass. Skin of his right hand and forearm was prepped and draped in usual sterile fashion. The h and and forearm were exsanguinated and tourniquet elevated to 250 mmHg. A transverse incision was ma de centered over the mass and we dissected bluntly through the subcutaneous tissue. The digital neuro vascular bundles were retracted by the registered nurse surgical services, Bonita Martinez, and then the flexor tendon sheath was incised longitudinally and the mass was removed with the small portion of the flexor tend on sheath. The wound was irrigated and the skin edges reapproximated with 4-0 nylon suture. The wou nd was dressed with Xeroform, 4x4, Webril and an Flako wrap. The patient tolerated the procedure well and was brought to the recovery room in good condition. [id number]/[facility] #: [id number]
== END 2017-11-26 09:49 | disposition home or self-care (01) ==
LOC: OREAST 07:04
PROVIDERS: ATTEND Orthopaedic Surgery
DX: M67.441 Ganglion, right hand (principal); E11.9 Type 2 diabetes mellitus without complications; Z79.84 Long term (current) use of oral hypoglycemic drugs; Z87.891 Personal history of nicotine dependence; I10 Essential (primary) hypertension; J44.9 Chronic obstructive pulmonary disease, unspecified; G47.33 Obstructive sleep apnea (adult) (pediatric); F41.8 Other specified anxiety disorders; K21.9 Gastro-esophageal reflux disease without esophagitis; L40.50 Arthropathic psoriasis, unspecified
CPT/HCPCS: 88304; J1885; J2250; J2704; J3010

== ENCOUNTER 2018-06-10 11:02 | Emergency (ER) | payer MEDICARE, OTHER ==
[2018-06-10] MEDS ORDERED: Morphine VIAL* 10 MG/ML 1 ML VIAL IM ONE ×2 (11:21→11:40)
[2018-06-10] MEDS ORDERED: Naproxen TAB* 250 MG PO ONE (11:22)
[2018-06-10] MEDS ORDERED: Morphine VIAL* 4 MG/ML VIAL (1 ml vial) ONE (11:50)
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
[2018-06-10 13:18] VITALS: BP 113/77
== END 2018-06-10 13:18 | disposition home or self-care (01) ==
LOC: ED 11:02
DX: S29.9XXA Unspecified injury of thorax, initial encounter (principal); W10.9XXA Fall (on) (from) unspecified stairs and steps, initial encounter; Y92.9 Unspecified place or not applicable; R06.02 Shortness of breath; R07.89 Other chest pain; J45.909 Unspecified asthma, uncomplicated; Z87.891 Personal history of nicotine dependence
CPT/HCPCS: 96372; 99282; A9270-GY; J2270

== ENCOUNTER 2018-12-28 14:15 | Emergency (ER) | payer MEDICARE, OTHER ==
--- OUTSIDE RECORDS SUMMARY | 2018-12-28 14:33 | XMS REPORT | Continuity of Care Document ---
:1965 External Reference #:[id number] Author Name Enrique Shrestha MD Address [address] [place] [id number] Care Team Providers Name Role Phone Enrique Shrestha MD Care Team Information Occupational Health Technician Unavailable Payers Date Identification Numbers Payment Provider Subscriber Effective: 2018 Policy Number: [id number] Medicare - Bswny Umd Pato Shah Berry PayID: [id number] [address] [place] [address] Policy Number: [id number] Medicaid After Medicare Pato Berry Group Name: 2 1 [address] PayID: [id number] [place] [address] Expires: 2018 Policy Number: [id number] [facility] Pato Berry PayID: [id number] [place] [address] Problems Active Problems Provider Date Essential hypertension Enrique Shrestha MD Onset: 04/04/2015 Obesity Enrique Shrestha MD Onset: 04/04/2015 Erectile dysfunction due to general medical Enrique Shrestha MD Onset: 04/04 condition Gastroesophageal reflux disease Enrique Shrestha MD Onset: 05/04/2015 Note: Had a EGD in 2014, records from [facility] Dyspnea on exertion Enrique Shrestha MD Onset: 06/06/2016 Family History Date Family Member(s) Observation Comments Father CHF Father Sapho syndrome First Brother bacterial endocarditis Social History Type Date Description Comments Sex Unknown Marital Status Single Lives With Alone Occupation Disabled Tobacco Use Start: Unknown End: Former Cigarette Smoker Unknown ETOH Use Has consumed alcohol in the past Recreational Drug Use Never Used Drugs Tobacco Use Start: Unknown End: Patient is a former smoker Unknown Allergies, Adverse Reactions, Alerts Description No Known Drug Allergies Medications Active Medications SIG Qnty Indications Ordering Date Provider Lasix 1.5 by mouth every 60tabs I50.30 Enrique 12/26/2018 40mg Tablets day MD [facility] Klor-Con 10 1-2 by mouth every 60tabs M79.18 Enrique 12/26/2018 10Meq day as directed MD [place] Tablets ER Diltiazem HCL ER 1 tab by mouth 180caps I10 Enrique 12/11/2018 twice a day MD [place] 120mg Caps ER 12HR Incruse Ellipta inhale one puff by 60units Enrique 12/02/2018 mouth every day for MD [place] 62.5mcg/Inh Aerosol chronic obstructive lung disease Lasix 1 by mouth every 5tabs Enrique 12/01/2018 20mg Tablets day MD [place] Hearing Evaluation Enrique 09/08/2018 MD [facility] Fiber Laxative Take 1 Tablet By 90tabs Enrique 08/07/2018 Mouth 4 Times Per MD [place] 625mg Tablets Day as Needed For Constipation Bisacodyl Ec 1 tab by mouth as 30tabs K59.00 Enrique 12/23/2017 5mg needed for MD [place] Tablets DR constipation Lisinopril Take 1 Tablet By 60tabs I10 Enrique 10/23/2017 20mg Mouth Every Day MD [place] Tablets Magnesium 1 tab by mouth 30tabs G47.00 Enrique 10/23/2017 250mg every day at MD [place] Tablets bedtime Melatonin 2 tab by mouth 60caps G47.00 Enrique 10/23/2017 1mg every night as MD [place] Capsules needed Lancets 30G use to check sugars 100units E11.65 Enrique 10/09/2017 30G Misc daily dx: e11.65 MD [place] True Metrix Blood testing 3x per day. 100units J44.9 Enrique 10/03/2017 Glucosetest Strips on insulin MD [place] Strips True Metrix Meter use meter the 1units Enrique 10/03/2017 insurance will MD [facility] w/Device Kit cover. dx code e11.9 Blood Pressure Cuff auto-inflating 1units Enrique 10/03/2017 MD [place] Misc Metformin HCL ER Take 3 Tablets 90tabs Enrique 10/24/2016 Every Day MD [place] 500mg Tablets ER 24HR Singulair take 1 tablet by 30tabs J44.9 Enrique 06/01/2016 10mg mouth daily in the MD [place] Tablets evening for asthma Spiriva Respimat inhale 2 puffs by 4gm Enrique 01/19/2016 mouth daily for MD [place] 2.5mcg/Act Aerosol chronic obstructive lung disease Gabapentin 2 tab by mouth 180caps Enrique 09/26/2015 300mg three times a day MD [place] Capsules Ventolin HFA 1-2 puffs four 2units J44.9 Enrique 09/16/2015 times a day as MD [place] 108(90Base) mcg/Act needed Aerosol Fluticasone Inhale 2 Sprays 16units J01.90 Enrique 09/08/2015 Propionate Into Nostril Daily MD [place] 50mcg/Act In Each Nostril Suspension Senna Take 2 Tablets By 60tabs M54.5 Enrique 08/29/2015 8.6mg Tablets Mouth Every Day MD [place] Wellbutrin XL 1 by mouth every 30tabs M54.5 Enrique 08/29/2015 300mg day MD [place] Tablets ER 24HR Meloxicam Take 1 Tablet By 30tabs M54.5 Enrique 07/18/2015 7.5mg Mouth Every Day MD [place] Tablets Triamterene/Hydrochl Take 1 Capsule By 30caps I10 Enrique 04/04/2015 orothiazide Mouth Every Day MD [place] 37.5-25mg Capsules Spacer, Pediatric R06.02 Enrique 04/04/2015 MD [place] Diclofenac Sodium Martir Oliveros 75mg Tablets DR Ibarra S22.32xA Unknown Clobetasol apply 1-2 times 120gm Enrique Propionate daily to psoriasis MD [place] 0.05% as needed Cream Folic Acid Unknown Tablets Docusate Sodium 1 by mouth daily Unknown 100mg Capsules Sulfasalazine 1 by mouth 2x a Unknown 500mg day. Tablets DR Oxycodone-Acetaminop 1 tab by mouth four Unknown hen times a day 10-325mg Tablets Morphine Sulfate 1 tab by mouth Unknown 15mg twice a day Tablets History Medications Lasix 1 by mouth every 14tabs I50.30 Enrique 12/11/2018 - 40mg Tablets day MD [place] 12/26/2018 Diltiazem HCL ER 1 tabs every 12 60caps I10 Enrique 12/01/2018 - 90mg hours for blood MD [place] 12/11/2018 Caps ER 12HR pressure Ketorolac by mouth every 6 20tabs Enrique 06/13/2018 - Tromethamine hours as needed. MD [place] 12/01/2018 10mg Do not use Tablets meloxicam while on this medication. Fibercon take 1 tablet by 90tabs K59.00 Enrique 12/23/2017 - 625mg Tablets mouth 4 times per MD [place] 12/23/2017 day as needed for constipation Diltiazem HCL Take 1 Tablet By 60tabs I10 Enrique 11/04/2017 - 60mg Mouth Twice A Day MD [place] 12/01/2018 Tablets Miralax 1 capful in 8 oz 510units R10.9 Enrique 07/17/2017 - 3350NF Powder of water, up to 8 MD [place] 10/23/2017 doses in an afternoon. Breo Ellipta 1 puff by mouth 2 60units J44.9 Enrique 04/23/2017 - times a daily for MD [place] 10/03/2017 200-25mcg/Inh Aerosol copd Bactrim DS take 1 tablet by 10tabs L60.0 Enrique 04/17/2017 - 800-160mg mouth every 12 MD [place] 07/17/2017 Tablets hours for 5 days Glipizide 1 tab by mouth 60tabs E11.65 Enrique 11/08/2016 - 5mg Tablets twice a day. start MD [place] 07/25/2018 with once at breakfast for the first week. Onetouch Ultra 2 use to do finger 1units Enrique 10/22/2016 - sticks MD [place] 10/03/2017 w/Device Kit Onetouch Ultra Blue use for testing 100units Enrique 10/22/2016 - blood sugar twice MD [place] 10/03/2017 Strips a day or as needed Onetouch Ultrasoft for fs glucose 100units Enrique 10/22/2016 - Lancets once daily MD [place] 10/03/2017 Misc Metformin HCL take 1 tablet by 60tabs E11.65 Enrique 10/18/2016 - 500mg mouth two times MD [place] 12/24/[address] daily [address]itrostat place one tablet 30tabs I10 Enrique 06/22/2016 - 0.4mg Tablets under the tongue MD [place] 07/18/2016 Sub every 5 minutes for up to 3 doses as needed for chest pain. ED if persistent. Diltiazem HCL ER take 1 capsule by 60caps I10 Enrique 06/22/2016 - 60mg mouth 2 times per MD [place] 11/04/2017 Caps ER 12HR day for high blood pressure Symbicort inhale 2 puffs by 12gm J44.9 Enrique 05/30/2016 - mouth 2 times per MD [place] 10/03/2017 160-4.5mcg/Act day for chronic Aerosol obstructive lung disease Tudorza Pressair inhale one puff by 1units Enrique 01/20/2016 - mouth twice a day MD [place] 04/04/2016 400mcg/Act Aerosol Serevent Diskus inhale 1 puff by 56units Enrique 01/13/2016 - mouth two times MD [place] 01/19/2016 50mcg/Dose Aerosol daily Singulair take 1 tablet by 30tabs J44.9 Enrique 11/28/2015 - 10mg Tablets mouth daily in the MD [place] 05/30/2016 evening for asthma Qvar 1 puff twice a day 2units J44.9 Shawnti R. 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 06/22/2016 Amoxicillin take 1 capsule by 30caps J01.90 Enrique 09/08/2015 - 500mg mouth 3 times per MD [place] 06/22/2016 Capsules day for 10 days for infection Gabapentin 1 tab by mouth 90caps Enrique 08/29/2015 - 300mg three times a day MD [place] 09/26/2015 Capsules Trazodone HCL 1 tab by mouth 90tabs M54.5 Enrique 08/12/2015 - 50mg every night MD [place] 04/04/2016 Tablets Prednisone 1 tab by mouth 3tabs Enrique 08/12/2015 - 50mg Tablets daily for 3 days MD [place] 01/04/2016 Formoterol Fumarate 1 capsule twice a 60units Enrique 08/12/2015 - day MD [place] 01/13/2016 Powder Ventolin HFA 1-2 puffs four 2units Enrique 08/09/2015 - times a day as MD [place] 06/22/2016 108(90Base) mcg/Act needed Aerosol Senna Laxative 1 tab by mouth 30tabs M54.5 Enrique 07/18/2015 - 8.6mg daily MD [place] 08/12/2015 Tablets Wellbutrin SR take one tablet by 60tabs M54.5 Enrique 07/18/2015 - 150mg mouth twice a day MD [place] 08/29/2015 Tablets ER 12HR Oxycodone-Acetaminoph 1 tab by mouth two 60tabs Enrique 05/04/2015 - en times a day as MD [place] 05/30/2016 10-325mg Tablets needed Lidocaine 1 apply to 30units Enrique 05/04/2015 - 5% Patches affected area MD [place] 08/12/2015 daily Percocet 1 tab by mouth 30tabs M54.5 Enrique 04/13/2015 - 5-325mg three times a day MD [place] 08/12/2015 Tablets as needed Nicotrol 1 puff four times 1units Z72.0 Enrique 04/13/2015 - 10mg Inhaler a day as needed. MD [place] 08/12/2015 Please supply starter kit. Cyclobenzaprine HCL 1 tab by mouth 45tabs Enrique 04/06/2015 - three times a day MD [place] 08/12/2015 10mg Tablets Amlodipine Besylate tab by mouth daily 30tabs Enrique 04/06/2015 - 5mg MD [place] 06/22/2016 Tablets Albuterol HFA 2 puffs four times 2units R06.02 Enrique 04/04/2015 - 90mcg/Inh a day as needed MD [place] 08/12/2015 Qvar R06.02 Unknown - 08/12/2015 Viagra Unknown - 08/12/2015 Methocarbamol 1 tab by mouth Unknown - 750mg twice a day 12/24/2016 Tablets Citracal Plus Unknown - Tablets 10/23/2017 Fiber Complete Unknown - Tablets 10/23/2017 Otezla 1 tablet bid Unknown - 30mg Tablets 06/13/2018 Medications Administered in Office Medication SIG Qnty Indications Ordering Provider Date Injection Ketorolac Tromethamine Enrique Shrestha MD 06/13/2018 Per 15 MG (Toradol) Injection Injection Ketorolac Mckennamethamine Enrique Shrestha MD 09/08/2015 Per 15 MG (Toradol) Injection Immunizations CPT Code Status Date Vaccine Lot # [id number] Given 12/24/2016 Hep B Vaccine Adult, 3 Dose age >20 yrs [id number] Given 11/08/2016 Pneumovax 23 (PPSV23) 65+ years or high risk 2 to [id number] 64 year old 08012 Refused 06/13/2018 Influenza Virus Vaccine, Quadrivalent, 3 Yr > Quad , Preserv Free [id number] Refused 12/23/2017 Influenza Virus Vaccine, Quadrivalent, 3 Yr > Quad , Preserv Free [id number] Refused 10/04/2016 Influenza Virus Vaccine, 3 Yrs And Above Vital Signs Date Vital Result Comment 12/26/2018 10:27am Weight 298.00 lb Weight 135.173 kg BP Systolic 162 mmHg BP Diastolic 70 mmHg Heart Rate 84 /min Body Temperature 99.0 F Respiratory Rate 20 /min 12/11/2018 10:21am Weight 295.00 lb Weight 133.812 kg BP Systolic 130 mmHg BP Diastolic 60 mmHg Heart Rate 94 /min Body Temperature 99.2 F Respiratory Rate 16 /min O2 % BldC Oximetry 93 % 12/01/2018 4:34pm Weight 296.00 lb Weight 134.266 kg BP Systolic 138 mmHg BP Diastolic 74 mmHg Heart Rate 83 /min Body Temperature 98.7 F Respiratory Rate 16 /min O2 % BldC Oximetry 98 % 07/25/2018 10:49am Weight 291.25 lb Weight 132.111 kg BP Systolic 134 mmHg BP Diastolic 76 mmHg Heart Rate 80 /min Body Temperature 98.3 F Respiratory Rate 18 /min Height 68.5 inches 5'8.50" BMI (Body Mass Index) 43.6 kg/m2 O2 % BldC Oximetry 95 % 06/13/2018 9:45am Weight 288.00 lb Weight 130.637 kg BP Systolic 120 mmHg BP Diastolic 68 mmHg Heart Rate 84 /min Body Temperature 97.7 F Respiratory Rate 24 /min 12/23/2017 10:19am Weight 276.00 lb Weight 125.194 kg BP Systolic 137 mmHg BP Diastolic 60 mmHg Heart Rate 88 /min Body Temperature 98.6 F O2 % BldC Oximetry 94 % 10/30/2017 4:37pm Weight 275.00 lb Weight 124.740 kg BP Systolic 138 mmHg BP Diastolic 60 mmHg Heart Rate 100 /min Body Temperature 98.9 F O2 % BldC Oximetry 94 % 10/23/2017 2:54pm Weight 275.00 lb Weight 124.740 kg BP Systolic 120 mmHg BP Diastolic 65 mmHg Heart Rate 88 /min Body Temperature 99.5 F O2 % BldC Oximetry 95 % 10/03/2017 1:43pm Weight 274.00 lb Weight 124.286 kg BP Systolic 148 mmHg BP Diastolic 92 mmHg Heart Rate 84 /min Body Temperature 98.7 F Respiratory Rate 20 /min Height 69 inches 5'9" BMI (Body Mass Index) 40.5 kg/m2 O2 % BldC Oximetry 97 % 07/26/2017 8:44am Weight 265.00 lb Weight 120.204 kg BP Systolic 124 mmHg BP Diastolic 64 mmHg Heart Rate 94 /min Body Temperature 98.5 F Respiratory Rate 18 /min O2 % BldC Oximetry 95 % 07/17/2017 10:45am Weight 270.00 lb Weight 122.472 kg BP Systolic 140 mmHg BP Diastolic 88 mmHg Heart Rate 88 /min Body Temperature 98.9 F Respiratory Rate 16 /min 04/17/2017 5:12pm Weight 272.00 lb Weight 123.379 kg BP Systolic 158 mmHg BP Diastolic 88 mmHg Heart Rate 88 /min Body Temperature 99.1 F Respiratory Rate 22 /min O2 % BldC Oximetry 97 % 12/24/2016 11:35am Weight 274.00 lb Weight 124.286 kg BP Systolic 136 mmHg BP Diastolic 70 mmHg Heart Rate 84 /min Body Temperature 97.7 F Respiratory Rate 16 /min 11/08/2016 9:17am Weight 268.00 lb Weight 121.565 kg BP Systolic 130 mmHg BP Diastolic 80 mmHg Heart Rate 78 /min Body Temperature 97.0 F Respiratory Rate 16 /min 10/18/2016 8:49am Weight 273.00 lb Weight 123.833 kg BP Systolic 146 mmHg BP Diastolic 86 mmHg Heart Rate 88 /min Body Temperature 97.9 F Respiratory Rate 16 /min O2 % BldC Oximetry 97 % 10/04/2016 10:26am Weight 268.00 lb Weight 121.565 kg BP Systolic 140 mmHg BP Diastolic 77 mmHg Heart Rate 72 /min 07/18/2016 11:48am Weight 272.00 lb Weight 123.379 kg BP Systolic 142 mmHg BP Diastolic 88 mmHg Heart Rate 86 /min Body Temperature 98.2 F Respiratory Rate 18 /min O2 % BldC Oximetry 98 % 06/22/2016 11:20am Weight 271.00 lb Weight 122.926 kg BP Systolic 126 mmHg BP Diastolic 60 mmHg Heart Rate 83 /min Body Temperature 97.4 F Respiratory Rate 20 /min O2 % BldC Oximetry 98 % 05/30/2016 9:46am Weight 267.00 lb Weight 121.111 kg BP Systolic 130 mmHg BP Diastolic 80 mmHg Heart Rate 96 /min O2 % BldC Oximetry 97 % 04/24/2016 2:53pm Weight 266.00 lb Weight 120.658 kg BP Systolic 130 mmHg BP Diastolic 90 mmHg Heart Rate 68 /min Body Temperature 98.8 F percocet at 1 Respiratory Rate 16 /min 04/04/2016 3:33pm Weight 265.00 lb Weight 120.204 kg BP Systolic 158 mmHg BP Diastolic 86 mmHg Heart Rate 92 /min Body Temperature 98.1 F Respiratory Rate 18 /min 02/20/2016 9:16am Weight 261.00 lb Weight 118.390 kg BP Systolic 132 mmHg BP Diastolic 78 mmHg Heart Rate 68 /min Body Temperature 98.8 F Respiratory Rate 20 /min 02/06/2016 10:47am Weight 261.00 lb Weight 118.390 kg BP Systolic 120 mmHg BP Diastolic 79 mmHg Heart Rate 88 /min 01/04/2016 8:45am Weight 260.00 lb Weight 117.936 kg BP Systolic 134 mmHg BP Diastolic 80 mmHg Heart Rate 81 /min 11/28/2015 3:25pm Weight 262.00 lb Weight 118.843 kg BP Systolic 132 mmHg BP Diastolic 88 mmHg Heart Rate 88 /min Body Temperature 98.9 F O2 % BldC Oximetry 99 % 09/26/2015 12:58pm Weight 253.00 lb Weight 114.761 kg BP Systolic 134 mmHg BP Diastolic 82 mmHg Heart Rate 86 /min 09/16/2015 9:58am Weight 248.00 lb with shoes Weight 112.493 kg BP Systolic 124 mmHg BP Diastolic 82 mmHg Heart Rate 92 /min Body Temperature 97.3 F 09/08/2015 2:45pm Weight 254.00 lb Weight 115.214 kg BP Systolic 120 mmHg BP Diastolic 74 mmHg Heart Rate 100 /min Body Temperature 98.6 F Motrin And Oxy Today O2 % BldC Oximetry 96 % 08/29/2015 8:59am Weight 252.00 lb Weight 114.307 kg BP Systolic 140 mmHg BP Diastolic 82 mmHg Heart Rate 92 /min 08/12/2015 11:44am Weight 252.00 lb Weight 114.307 kg BP Systolic 136 mmHg BP Diastolic 80 mmHg Heart Rate 90 /min Body Temperature 97.8 F O2 % BldC Oximetry 98 % 07/18/2015 9:41am Weight 251.00 lb Weight 113.854 kg BP Systolic 120 mmHg BP Diastolic 80 mmHg Heart Rate 80 /min Body Temperature 99.0 F 06/08/2015 9:04am Weight 251.00 lb Weight 113.854 kg BP Systolic 134 mmHg BP Diastolic 68 mmHg Heart Rate 88 /min Body Temperature 98.2 F 06/02/2015 9:43am Weight 248.00 lb Weight 112.493 kg BP Systolic 114 mmHg BP Diastolic 78 mmHg Heart Rate 88 /min Body Temperature 98.3 F 05/18/2015 9:48am Weight 247.00 lb Weight 112.039 kg BP Systolic 120 mmHg BP Diastolic 76 mmHg Heart Rate 96 /min Body Temperature 98.7 F 05/04/2015 3:09pm Weight 246.00 lb Weight 111.586 kg BP Systolic 136 mmHg BP Diastolic 84 mmHg Heart Rate 108 /min Body Temperature 98.7 F 04/13/2015 4:53pm Weight 247.00 lb Weight 112.039 kg BP Systolic 112 mmHg BP Diastolic 74 mmHg Heart Rate 108 /min 04/06/2015 5:08pm Weight 241.00 lb Weight 109.318 kg BP Systolic 138 mmHg BP Diastolic 78 mmHg Heart Rate 96 /min 04/04/2015 8:55am Weight 242.00 lb Weight 109.771 kg BP Systolic 140 mmHg BP Diastolic 90 mmHg Heart Rate 76 /min Height 68.5 inches 5'8.50" BMI (Body Mass Index) 36.3 kg/m2 Results Test Date Facility Test Result H/L Range Note Laboratory test [facility] Magnesium < pending> finding 5 [phone] Laboratory test In House Lab Glucose By 324 High 78-110 finding 9 [phone] Moniter Drug Abuse 20 [facility] Urine Negative 1 Urine 9 [phone] Amphetamine ng/mL Urine Barbiturates Negative ng/mL 2 Urine Benzodiazepines Negative ng/mL 3 Urine Cocaine Negative ng/mL 4 Urine Phencyclidine Negative ng/mL Cutoff: 25 Urine Tetrahydrocannabinol Negative ng/mL Cutoff: 50 5 Creatinine, Urine 46.8 mg/dL Specific [place] 1.008 pH 7.4 Oxidants Negative 6 Adulterants Comment Normal Codeine, Ur Not Detected ng/mL Cutoff: 25 7 Xmnobbl-8-wdbc-glucuronide, Ur Not Detected ng/mL 8 Morphine, Ur Present ng/mL Abnormal Cutoff: 25 9 Jyklrjge-4-oezb-glucuronide, U Present ng/mL Abnormal 10 6-monoacetylmorphine, Ur Not Detected ng/mL Cutoff: 25 11 Hydrocodone, Ur Not Detected ng/mL Cutoff: 25 12 Norhydrocodone, Ur Not Detected ng/mL Cutoff: 25 13 Dihydrocodeine, Ur Not Detected ng/mL Cutoff: 25 14 Hydromorphone, Ur Not Detected ng/mL Cutoff: 25 15 Hklmscgnhixgg9wrmtwxsyjyhajug Not Detected ng/mL 16 Oxycodone, Ur Present ng/mL Abnormal Cutoff: 25 17 Noroxycodone, Ur Present ng/mL Abnormal Cutoff: 25 18 Oxymorphone, Ur Not Detected ng/mL Cutoff: 25 19 Nnpauclpeou-3-nuir-glucuronide Not Detected ng/mL 20 Noroxymorphone, Ur Not Detected ng/mL Cutoff: 25 21 Fentanyl, Ur Not Detected ng/mL Cutoff: 2 22 Norfentanyl, Ur Not Detected ng/mL Cutoff: 2 23 Meperidine, Ur Not Detected ng/mL Cutoff: 25 24 Normeperidine, Ur Not Detected ng/mL Cutoff: 25 25 Naloxone, Ur Not Detected ng/mL Cutoff: 25 26 Kkztmjmz-4-amaz-glucuronide, U Not Detected ng/mL 27 Methadone, Ur Not Detected ng/mL Cutoff: 25 28 Eddp, Ur Not Detected ng/mL Cutoff: 25 29 Propoxyphene, Ur Not Detected ng/mL Cutoff: 25 30 Norpropoxyphene, Ur Not Detected ng/mL Cutoff: 25 31 Tramadol, Ur Not Detected ng/mL Cutoff: 25 32 O-desmethyltramadol, Ur Not Detected ng/mL Cutoff: 25 33 Tapentadol, Ur Not Detected ng/mL Cutoff: 25 34 N-desmethyltapentadol, Ur Not Detected ng/mL Cutoff: 50 35 Blofwxnzgj-byqc-qmrgcicilro, U Not Detected ng/mL 36 Buprenorphine, Ur Not Detected ng/mL Cutoff: 5 37 Norbuprenorphine, Ur Not Detected ng/mL Cutoff: 5 38 Norbuprenorphine glucuronide Not Detected ng/mL Cutoff: 20 39 Opioid Interpretation See Comment 40 Laboratory test 10/17/2018 [facility] Erythrocyte Sed 15 mm/Hr N 0-20 41 finding [phone] Rate Comp Metabolic 10/17/2018 [facility] Sodium 136 mmol/ L N 135-145 Panel [phone] Potassium 4.1 mmol/L N 3.5-5.0 Chloride 102 mmol/L N 101-111 Co2 Carbon Dioxide 27 mmol/L N 22-32 Anion Gap 7 mmol/L N 2-11 Glucose 186 mg/dL High 70-100 Blood Urea Nitrogen 13 mg/dL N 6-24 Creatinine 0.77 mg/dL N 0.67-1.17 BUN/Creatinine Ratio 16.9 N 8-20 Calcium 9.8 mg/dL N 8.6-10.3 Total Protein 7.3 g/dL N 6.4-8.9 Albumin 4.5 g/dL N 3.2-5.2 Globulin 2.8 g/dL N 2-4 Albumin/Globulin Ratio 1.6 N 1-3 Total Bilirubin 0.90 mg/dL N 0.2-1.0 Alkaline Phosphatase 115 U/L High 34-104 Alt 27 U/L N 7-52 Ast 30 U/L N 13-39 Egfr Non- 105.7 >60 Egfr 127.9 >60 42 CBC Auto Diff 10/17/2018 [facility] White Blood 8.4 10^3/uL N 3.5-10.8 [phone] Count Red Blood Count 4.56 10^6/uL N 4.18-5.48 Hemoglobin 14.8 g/dL N 14.0-18.0 Hematocrit 42 % N 36-46 Mean Corpuscular Volume 92 fL N 80-94 Mean Corpuscular Hemoglobin 32 pg High 27-31 Mean Corpuscular HGB Conc 35 g/dL N 31-36 Red Cell Distribution Width 14 % N 10.5-15 Platelet Count 156 10^3/uL N 150-450 Mean Platelet Volume 7.5 fL N 7.4-10.4 Abs Neutrophils 5.0 10^3/uL N 1.5-7.7 Abs Lymphocytes 2.3 10^3/uL N 1.0-4.8 Abs Monocytes 0.9 10^3/uL High 0-0.8 Abs Eosinophils 0.2 10^3/uL N 0-0.6 Abs Basophils 0 10^3/uL N 0-0.2 Abs Nucleated RBC 0 10^3/uL Granulocyte % 59.3 % Lymphocyte % 27.6 % Monocyte % 10.5 % Eosinophil % 2.3 % Basophil % 0.3 % Nucleated Red Blood Cells % 0 Laboratory test 10/17/2018 [facility] C Reactive 2.94 mg/L N <8.01 43 finding [phone] Protein Laboratory test 07/25/2018 In House Lab Hemoglobin A1c 6.3 finding [phone] Poct Laboratory test 07/16/2018 [facility] Erythrocyte Sed 19 mm/Hr N 0-20 finding [phone] Rate Comp Metabolic 07/16/2018 [facility] Sodium 137 N 135-145 Panel [phone] mmol/L Potassium 4.0 mmol/L N 3.5-5.0 Chloride 103 mmol/L N 101-111 Co2 Carbon Dioxide 27 mmol/L N 22-32 Anion Gap 7 mmol/L N 2-11 Glucose 124 mg/dL High 70-100 Blood Urea Nitrogen 16 mg/dL N 6-24 Creatinine 1.00 mg/dL N 0.67-1.17 BUN/Creatinine Ratio 16.0 N 8-20 Calcium 9.7 mg/dL N 8.6-10.3 Total Protein 7.1 g/dL N 6.4-8.9 Albumin 4.5 g/dL N 3.2-5.2 Globulin 2.6 g/dL N 2-4 Albumin/Globulin Ratio 1.7 N 1-3 Total Bilirubin 0.50 mg/dL N 0.2-1.0 Alkaline Phosphatase 89 U/L N 34-104 Alt 28 U/L N 7-52 Ast 31 U/L N 13-39 Egfr Non- 78.5 >60 Egfr 94.9 >60 44 CBC Auto Diff 07/16/2018 [facility] White Blood 9.3 10^3/uL N 3.5-10.8 [phone] Count Red Blood Count 4.60 10^6/uL N 4.00-5.40 Hemoglobin 14.4 g/dL N 14.0-18.0 Hematocrit 42 % N 42-52 Mean Corpuscular Volume 92 fL N 80-94 Mean Corpuscular Hemoglobin 31 pg N 27-31 Mean Corpuscular HGB Conc 34 g/dL N 31-36 Red Cell Distribution Width 14 % N 10.5-15 Platelet Count 163 10^3/uL N 150-450 Mean Platelet Volume 7.2 fL Low 7.4-10.4 Abs Neutrophils 5.2 10^3/uL N 1.5-7.7 Abs Lymphocytes 2.7 10^3/uL N 1.0-4.8 Abs Monocytes 1.1 10^3/uL High 0-0.8 Abs Eosinophils 0.2 10^3/uL N 0-0.6 Abs Basophils 0 10^3/uL N 0-0.2 Abs Nucleated RBC 0 10^3/uL Granulocyte % 55.9 % Lymphocyte % 29.5 % Monocyte % 11.9 % Eosinophil % 2.4 % Basophil % 0.3 % Nucleated Red Blood Cells % 0 Laboratory test 07/16/2018 [facility] C Reactive 2.62 N <8.01 finding [phone] Protein mg/L Laboratory test 03/24/2018 [facility] Erythrocyte Sed 26 mm/Hr High 0-20 45 finding [phone] Rate Comp Metabolic 03/24/2018 [facility] Sodium 134 Low 135-145 Panel [phone] mmol/L Potassium 4.1 mmol/L N 3.5-5.0 Chloride 99 mmol/L Low 101-111 Co2 Carbon Dioxide 29 mmol/L N 22-32 Anion Gap 6 mmol/L N 2-11 Glucose 142 mg/dL High 70-100 Blood Urea Nitrogen 15 mg/dL N 6-24 Creatinine 0.87 mg/dL N 0.67-1.17 BUN/Creatinine Ratio 17.2 N 8-20 Calcium 9.5 mg/dL N 8.6-10.3 Total Protein 7.1 g/dL N 6.4-8.9 Albumin 4.3 g/dL N 3.2-5.2 Globulin 2.8 g/dL N 2-4 Albumin/Globulin Ratio 1.5 N 1-3 Total Bilirubin 0.40 mg/dL N 0.2-1.0 Alkaline Phosphatase 92 U/L N 34-104 Alt 28 U/L N 7-52 Ast 34 U/L N 13-39 Egfr Non- 92.1 >60 Egfr 111.5 >60 46 Laboratory test 03/24/2018 [facility] C Reactive 6.88 mg/L N <8.01 47 finding [phone] Protein CBC Auto Diff 03/24/2018 [facility] White Blood 7.6 N 3.5-10.8 [phone] Count 10^3/uL Red Blood Count 4.12 10^6/uL N 4.00-5.40 Hemoglobin 13.2 g/dL Low 14.0-18.0 Hematocrit 38 % Low 42-52 Mean Corpuscular Volume 92 fL N 80-94 Mean Corpuscular Hemoglobin 32 pg High 27-31 Mean Corpuscular HGB Conc 35 g/dL N 31-36 Red Cell Distribution Width 13 % N 10.5-15 Platelet Count 148 10^3/uL Low 150-450 Mean Platelet Volume 6.9 um3 Low 7.4-10.4 Abs Neutrophils 4.5 10^3/uL N 1.5-7.7 Abs Lymphocytes 2.1 10^3/uL N 1.0-4.8 Abs Monocytes 0.8 10^3/uL N 0-0.8 Abs Eosinophils 0.2 10^3/uL N 0-0.6 Abs Basophils 0 10^3/uL N 0-0.2 Abs Nucleated RBC 0 10^3/uL Granulocyte % 59.4 % N 38-83 Lymphocyte % 27.0 % N 25-47 Monocyte % 10.3 % High 0-7 Eosinophil % 3.0 % N 0-6 Basophil % 0.3 % N 0-2 Nucleated Red Blood Cells % 0.1 Laboratory test 12/23/2017 [facility] Hemoglobin A1c 6.9 % High 4.0-5.6 48 finding [phone] Laboratory test 12/23/2017 [facility] Erythrocyte Sed 30 High 0-20 49 finding [phone] Rate mm/Hr Lipid Profile 12/23/2017 [facility] Triglycerides 199 50 (Trig/Chol/HDL) [phone] mg/dL Cholesterol 189 mg/dL 51 HDL Cholesterol 43.8 mg/dL 52 LDL Cholesterol 105 mg/dL 53 Comp Metabolic 12/23/2017 [facility] Sodium 135 mmol/ L Low 139-145 Panel [phone] Potassium 4.2 mmol/L N 3.5-5.0 Chloride 99 mmol/L Low 101-111 Co2 Carbon Dioxide 29 mmol/L N 22-32 Anion Gap 7 mmol/L N 2-11 Glucose 149 mg/dL High 70-100 Blood Urea Nitrogen 13 mg/dL N 6-24 Creatinine 0.82 mg/dL N 0.67-1.17 BUN/Creatinine Ratio 15.9 N 8-20 Calcium 9.7 mg/dL N 8.6-10.3 Total Protein 7.2 g/dL N 6.4-8.9 Albumin 4.2 g/dL N 3.2-5.2 Globulin 3.0 g/dL N 2-4 Albumin/Globulin Ratio 1.4 N 1-3 Total Bilirubin 0.60 mg/dL N 0.2-1.0 Alkaline Phosphatase 89 U/L N 34-104 Alt 32 U/L N 7-52 Ast 40 U/L High 13-39 Egfr Non- 98.7 >60 Egfr 126.9 >60 54 CBC Auto Diff 12/23/2017 [facility] White Blood 8.3 10^3/uL N 3.5-10.8 [phone] Count Red Blood Count 4.35 10^6/uL N 4.00-5.40 Hemoglobin 13.8 g/dL Low 14.0-18.0 Hematocrit 40 % Low 42-52 Mean Corpuscular Volume 92 fL N 80-94 Mean Corpuscular Hemoglobin 32 pg High 27-31 Mean Corpuscular HGB Conc 35 g/dL N 31-36 Red Cell Distribution Width 14 % N 10.5-15 Platelet Count 148 10^3/uL Low 150-450 Mean Platelet Volume 7.2 um3 Low 7.4-10.4 Abs Neutrophils 5.0 10^3/uL N 1.5-7.7 Abs Lymphocytes 2.3 10^3/uL N 1.0-4.8 Abs Monocytes 0.9 10^3/uL High 0-0.8 Abs Eosinophils 0.2 10^3/uL N 0-0.6 Abs Basophils 0 10^3/uL N 0-0.2 Abs Nucleated RBC 0 10^3/uL Granulocyte % 60.1 % N 38-83 Lymphocyte % 27.1 % N 25-47 Monocyte % 10.7 % High 0-7 Eosinophil % 1.9 % N 0-6 Basophil % 0.2 % N 0-2 Nucleated Red Blood Cells % 0 Laboratory test 12/23/2017 [facility] Magnesium 2.0 mg/dL N 1.9-2.7 55 finding [phone] Creatine Kinase 68 U/L N 10-223 56 C Reactive Protein 5.09 mg/L High < 5.00 57 Laboratory test 11/26/2017 [facility] Point of Care 137 mg/dL High 70-100 58 finding [phone] Glucose Urine 10/23/2017 [facility] Ur Microalbumin < 15.0 Microalbumin [phone] (mg/L) mg/L Random Urine Creatinine 186.23 mg/dL Urine Microalbumin/Creatinine TNP ug/mg <31 59 Laboratory test 10/18/2017 [facility] Surgical SEE RESULT 60 finding [phone] Interface BELOW Order Laboratory test 10/18/2017 [facility] Point of Care 139 mg/dL High 70-10 61 finding [phone] Glucose 0 Laboratory test 08/14/2017 [facility] Partial 37.8 seconds High 26.0- finding [phone] Thrombo Time 36.3 PTT Platelet Count 08/14/2017 [facility] Platelet Count 123 10^3/uL Low 150-4 [phone] Mean Platelet Volume 7 um3 Low 7.4-10.4 Inr/Protime 08/14/2017 [facility] Inr 0.98 N 0.77- 1.02 [phone] CBC No Diff 08/12/2017 [facility] White Blood 6.9 10^ 3/uL N 3.5-10.8 [phone] Count Red Blood Count 4.28 10^6/uL N 4.0-5.4 Hemoglobin 13.5 g/dL Low 14.0-18.0 Hematocrit 39 % Low 42-52 Mean Corpuscular Volume 91 fL N 80-94 Mean Corpuscular Hemoglobin 31 pg N 27-31 Mean Corpuscular HGB Conc 35 g/dL N 31-36 Red Cell Distribution Width 14 % N 10.5-15 Platelet Count 119 10^3/uL Low 150-450 Mean Platelet Volume 8 um3 N 7.4-10.4 Laboratory test 08/12/2017 [facility] Inr/Protime 0.99 N 0.77-1.02 finding [phone] CBC Auto Diff 08/02/2017 [facility] White Blood 9.4 N 3.5-10.8 [phone] Count 10^3/uL Red Blood Count 4.67 10^6/uL N 4.0-5.4 Hemoglobin 14.6 g/dL N 14.0-18.0 Hematocrit 42 % N 42-52 Mean Corpuscular Volume 90 fL N 80-94 Mean Corpuscular Hemoglobin 31 pg N 27-31 Mean Corpuscular HGB Conc 35 g/dL N 31-36 Red Cell Distribution Width 14 % N 10.5-15 Platelet Count 198 10^3/uL N 150-450 Mean Platelet Volume 7 um3 Low 7.4-10.4 Abs Neutrophils 5.7 10^3/uL N 1.5-7.7 Abs Lymphocytes 2.4 10^3/uL N 1.0-4.8 Abs Monocytes 1.0 10^3/uL High 0-0.8 Abs Eosinophils 0.2 10^3/uL N 0-0.6 Abs Basophils 0 10^3/uL N 0-0.2 Abs Nucleated RBC 0 10^3/uL Granulocyte % 61.0 % N 38-83 Lymphocyte % 25.3 % N 25-47 Monocyte % 11.0 % High 1-9 Eosinophil % 2.4 % N 0-6 Basophil % 0.3 % N 0-2 Nucleated Red Blood Cells % 0 Inr/Protime 08/02/2017 [facility] Inr 0.98 N 0.77- 1.02 [phone] Laboratory test 08/02/2017 [facility] Ceruloplasmin 24.6 62 finding [phone] mg/dL Alpha 1 Antitrypsin A1a 138 mg/dL 100 - 190 63 Anti Nuclear Antibody 0.2 U 64 Transglutaminase Igg 08/02/2017 [facility] Tissue < 1.2 65 & Iga [phone] Transglutaminase IgA U/mL Ab Tissue Transglutaminase IgG Ab <1.2 U/mL 66 Laboratory test 08/02/2017 [facility] Mitochondria M2 <0.1 U 67 finding [phone] Antibody Anti Endomysial Antibody Negative Negative 68 Anti Gliadin Igg And 08/02/2017 [facility] Gliadin IgG <10.0 U 69 Iga AB [phone] Gliadin IgA <10.0 U 70 Inr/Protime 07/26/2017 [facility] Inr 0.96 N 0.77- 1.02 71 [phone] Bilrubin And 07/26/2017 [facility] Total 0.50 N 0.2 -1.0 Indirect [phone] Bilirubin mg/dL Direct Bilirubin 0.10 mg/dL N 0.03-0.18 Indirect Bilirubin 0.4 mg/dL N 0.3-1.0 Hepatitis 07/26/2017 [facility] Hepatitis B Nonreactive Nonreactive Acute Panel [phone] Surface Antigen Hepatitis B Core IgM Nonreactive Nonreactive Hepatitis A AB IgM Nonreactive Nonreactive Hepatitis C Antibody Nonreactive Nonreactive Laboratory test 07/26/2017 [facility] C Reactive 7.73 mg/L High < 5.00 72 finding [phone] Protein Laboratory test 07/21/2017 [facility] Stool Occult SEE RESULT 73 finding [phone] Blood, BELOW Screen Laboratory test 07/21/2017 [facility] Lipase 40 U/L N 11.0-82. 74, 75 finding [phone] Laboratory test 07/21/2017 [facility] Point of 155 mg /dL High 70-100 76 finding [phone] Care Glucose Urinalysis 07/21/2017 [facility] Urine Color Pita Profile [phone] Urine Appearance Clear Urine Specific [place] 1.029 N 1.010-1.030 Urine pH 5.0 N 5-9 Urine Urobilinogen Negative Negative Urine Ketones Negative Negative Urine Protein 1+(30 mg/dL) Abnormal Negative Urine Leukocytes Trace Abnormal Negative Urine Blood Negative Negative Urine Nitrite Negative Negative Urine Bilirubin Negative Negative Urine Glucose Negative Negative Urine White Blood Cell Trace(0-5/hpf) Absent Urine Red Blood Cell Trace(0-2/hpf) Absent Urine Bacteria Absent Absent Laboratory test 07/21/2017 [facility] Urine Culture SEE RESULT 77 finding [phone] BELOW CBC Auto Diff 07/20/2017 [facility] White Blood 8.0 10^3/uL N 3.5-10 [phone] Count .8 Red Blood Count 4.40 10^6/uL N 4.0-5.4 Hemoglobin 13.9 g/dL Low 14.0-18.0 Hematocrit 40 % Low 42-52 Mean Corpuscular Volume 91 fL N 80-94 Mean Corpuscular Hemoglobin 32 pg High 27-31 Mean Corpuscular HGB Conc 35 g/dL N 31-36 Red Cell Distribution Width 14 % N 10.5-15 Platelet Count 128 10^3/uL Low 150-450 Mean Platelet Volume 7 um3 Low 7.4-10.4 Abs Neutrophils 6.0 10^3/uL N 1.5-7.7 Abs Lymphocytes 0.7 10^3/uL Low 1.0-4.8 Abs Monocytes 1.1 10^3/uL High 0-0.8 Abs Eosinophils 0.1 10^3/uL N 0-0.6 Abs Basophils 0 10^3/uL N 0-0.2 Abs Nucleated RBC 0 10^3/uL Granulocyte % 76.0 % N 38-83 Lymphocyte % 9.2 % Low 25-47 Monocyte % 13.5 % High 1-9 Eosinophil % 1.0 % N 0-6 Basophil % 0.3 % N 0-2 Nucleated Red Blood Cells % 0 Laboratory test 07/20/2017 [facility] Lactic Acid 1.6 mmol/L N 0.5-2.0 78 finding [phone] Comp Metabolic 07/20/2017 [facility] Sodium 134 mmol/ L N 133-145 Panel [phone] Potassium 3.5 mmol/L N 3.5-5.0 Chloride 99 mmol/L Low 101-111 Co2 Carbon Dioxide 28 mmol/L N 22-32 Anion Gap 7 mmol/L N 2-11 Glucose 97 mg/dL N 70-100 Blood Urea Nitrogen 13 mg/dL N 6-24 Creatinine 1.01 mg/dL N 0.67-1.17 BUN/Creatinine Ratio 12.9 N 8-20 Calcium 9.3 mg/dL N 8.6-10.3 Total Protein 7.3 g/dL N 6.4-8.9 Albumin 3.9 g/dL N 3.2-5.2 Globulin 3.4 g/dL N 2-4 Albumin/Globulin Ratio 1.1 N 1-3 Total Bilirubin 0.70 mg/dL N 0.2-1.0 Alkaline Phosphatase 78 U/L N 34-104 Alt 34 U/L N 7-52 Ast 73 U/L High 13-39 Egfr Non- 77.9 >60 Egfr 100.2 >60 79 Laboratory test 07/20/2017 [facility] Magnesium 2.2 mg/dL N 1.9-2.7 finding [phone] Lipase 190 U/L High 11.0-82.0 C Reactive Protein 37.05 mg/L High < 5.00 80 Amylase 54 U/L N 29-103 Laboratory test 07/17/2017 [facility] Hemoglobin A1c 6.8 % High 4.0-5.6 81, 82 finding [phone] Comp Metabolic 07/12/2017 [facility] Sodium 134 N 133-145 Panel [phone] mmol/L Potassium 3.3 mmol/L Low 3.5-5.0 Chloride 97 mmol/L Low 101-111 Co2 Carbon Dioxide 27 mmol/L N 22-32 Anion Gap 10 mmol/L N 2-11 Glucose 213 mg/dL High 70-100 Blood Urea Nitrogen 8 mg/dL N 6-24 Creatinine 0.92 mg/dL N 0.67-1.17 BUN/Creatinine Ratio 8.7 N 8-20 Calcium 9.4 mg/dL N 8.6-10.3 Total Protein 7.0 g/dL N 6.4-8.9 Albumin 4.0 g/dL N 3.2-5.2 Globulin 3.0 g/dL N 2-4 Albumin/Globulin Ratio 1.3 N 1-3 Total Bilirubin 0.80 mg/dL N 0.2-1.0 Alkaline Phosphatase 80 U/L N 34-104 Alt 31 U/L N 7-52 Ast 44 U/L High 13-39 Egfr Non- 86.7 >60 Egfr 111.5 >60 83 Laboratory test 07/12/2017 [facility] C Reactive 11.35 mg/L High < 5.00 84 finding [phone] Protein CBC Auto Diff 07/12/2017 [facility] White Blood 10.1 N 3.5-10.8 [phone] Count 10^3/uL Red Blood Count 4.61 10^6/uL N 4.0-5.4 Hemoglobin 14.3 g/dL N 14.0-18.0 Hematocrit 42 % N 42-52 Mean Corpuscular Volume 91 fL N 80-94 Mean Corpuscular Hemoglobin 31 pg N 27-31 Mean Corpuscular HGB Conc 34 g/dL N 31-36 Red Cell Distribution Width 14 % N 10.5-15 Platelet Count 152 10^3/uL N 150-450 Mean Platelet Volume 7 um3 Low 7.4-10.4 Abs Neutrophils 6.3 10^3/uL N 1.5-7.7 Abs Lymphocytes 2.4 10^3/uL N 1.0-4.8 Abs Monocytes 1.0 10^3/uL High 0-0.8 Abs Eosinophils 0.2 10^3/uL N 0-0.6 Abs Basophils 0 10^3/uL N 0-0.2 Abs Nucleated RBC 0.01 10^3/uL Granulocyte % 62.7 % N 38-83 Lymphocyte % 24.3 % Low 25-47 Monocyte % 10.2 % High 1-9 Eosinophil % 2.5 % N 0-6 Basophil % 0.3 % N 0-2 Nucleated Red Blood Cells % 0.1 Laboratory test 07/12/2017 [facility] Erythrocyte Sed 30 mm/Hr High 0-20 85 finding [phone] Rate Comp Metabolic 06/07/2017 [facility] Sodium 132 Low 133-145 Panel [phone] mmol/L Potassium 3.8 mmol/L N 3.5-5.0 Chloride 97 mmol/L Low 101-111 Co2 Carbon Dioxide 28 mmol/L N 22-32 Anion Gap 7 mmol/L N 2-11 Glucose 226 mg/dL High 70-100 Blood Urea Nitrogen 12 mg/dL N 6-24 Creatinine 0.87 mg/dL N 0.67-1.17 BUN/Creatinine Ratio 13.8 N 8-20 Calcium 9.4 mg/dL N 8.6-10.3 Total Protein 7.2 g/dL N 6.4-8.9 Albumin 4.0 g/dL N 3.2-5.2 Globulin 3.2 g/dL N 2-4 Albumin/Globulin Ratio 1.3 N 1-3 Total Bilirubin 0.70 mg/dL N 0.2-1.0 Alkaline Phosphatase 109 U/L High 34-104 Alt 38 U/L N 7-52 Ast 48 U/L High 13-39 Egfr Non- 92.5 >60 Egfr 119.0 >60 86 Laboratory test 06/07/2017 [facility] C Reactive 10.30 mg/L High < 5.00 87 finding [phone] Protein CBC Auto Diff 06/07/2017 [facility] White Blood 8.7 N 3.5-10.8 [phone] Count 10^3/uL Red Blood Count 4.56 10^6/uL N 4.0-5.4 Hemoglobin 14.4 g/dL N 14.0-18.0 Hematocrit 42 % N 42-52 Mean Corpuscular Volume 91 fL N 80-94 Mean Corpuscular Hemoglobin 31 pg N 27-31 Mean Corpuscular HGB Conc 35 g/dL N 31-36 Red Cell Distribution Width 13 % N 10.5-15 Platelet Count 152 10^3/uL N 150-450 Mean Platelet Volume 8 um3 N 7.4-10.4 Abs Neutrophils 5.7 10^3/uL N 1.5-7.7 Abs Lymphocytes 1.9 10^3/uL N 1.0-4.8 Abs Monocytes 0.8 10^3/uL N 0-0.8 Abs Eosinophils 0.2 10^3/uL N 0-0.6 Abs Basophils 0 10^3/uL N 0-0.2 Abs Nucleated RBC 0.01 10^3/uL Granulocyte % 65.4 % N 38-83 Lymphocyte % 22.3 % Low 25-47 Monocyte % 9.0 % N 1-9 Eosinophil % 2.8 % N 0-6 Basophil % 0.5 % N 0-2 Nucleated Red Blood Cells % 0.2 Laboratory test 06/07/2017 [facility] Erythrocyte Sed 38 mm/Hr High 0-20 finding [phone] Rate Laboratory test 01/28/2017 [facility] Point of Care 159 mg/dL High 74-106 88 finding [phone] Glucose Laboratory test 01/28/2017 [facility] Point of Care 115 mg/dL High 74-106 89 finding [phone] Glucose Basic Metabolic 01/18/2017 [facility] Sodium 136 N 133-145 Panel [phone] mmol/L Potassium 4.0 mmol/L N 3.5-5.0 Chloride 100 mmol/L Low 101-111 Co2 Carbon Dioxide 28 mmol/L N 22-32 Anion Gap 8 mmol/L N 2-11 Glucose 138 mg/dL High 70-100 Blood Urea Nitrogen 13 mg/dL N 6-24 Creatinine 0.93 mg/dL N 0.67-1.17 BUN/Creatinine Ratio 14.0 N 8-20 Calcium 9.5 mg/dL N 8.6-10.3 Egfr Non- 85.7 N >60 Egfr 110.2 N >60 90 Laboratory test 01/16/2017 [facility] Helico Pylori Negative N Negative 91 finding [phone] Antigen- Stool Laboratory test 12/24/2016 [facility] Hemoglobin 6.9 % High Less than 92, finding [phone] A1c 6.0 93 Urine 10/18/2016 [facility] Urine 115.10 N 94 Microalbumin [phone] Creatinine mg/dL Random Ur Microalbumin (mg/L) < 15.0 mg/L N Urine Microalbumin/Creatinine TNP ug/mg N <31 95 Laboratory test 10/04/2016 [facility] House Lab Glucose By Moniter 181 High 78- 110 finding [phone] Laboratory test 10/04/2016 [facility] C Reactive Protein 10.55 High < 5.00 96, 97 finding [phone] Lipid Profile 10/04/2016 [facility] Triglycerides 166 N 98 (Trig/Chol/HDL) [phone] mg/dL Cholesterol 182 mg/dL N 99 HDL Cholesterol 35.4 mg/dL N 100 LDL Cholesterol 113 mg/dL N 101 CBC Auto Diff 10/04/2016 [facility] White Blood 8.3 10^3/uL N 3.5-10.8 [phone] Count Red Blood Count 5.01 10^6/uL N 4.0-5.4 Hemoglobin 15.2 g/dL N 14.0-18.0 Hematocrit 45 % N 42-52 Mean Corpuscular Volume 90 fL N 80-94 Mean Corpuscular Hemoglobin 30 pg N 27-31 Mean Corpuscular HGB Conc 34 g/dL N 31-36 Red Cell Distribution Width 14 % N 10.5-15 Platelet Count 163 10^3/uL N 150-450 Mean Platelet Volume 8 um3 N 7.4-10.4 Abs Neutrophils 5.2 10^3/uL N 1.5-7.7 Abs Lymphocytes 2.1 10^3/uL N 1.0-4.8 Abs Monocytes 0.7 10^3/uL N 0-0.8 Abs Eosinophils 0.3 10^3/uL N 0-0.6 Abs Basophils 0 10^3/uL N 0-0.2 Abs Nucleated RBC 0 10^3/uL N Granulocyte % 62.4 % N 38-83 Lymphocyte % 24.9 % Low 25-47 Monocyte % 8.6 % N 1-9 Eosinophil % 3.6 % N 0-6 Basophil % 0.5 % N 0-2 Nucleated Red Blood Cells % 0 N Comp Metabolic Panel 10/04/2016 [facility] Sodium 136 mmol/L N 133-145 [phone] Potassium 4.0 mmol/L N 3.5-5.0 Chloride 98 mmol/L Low 101-111 Co2 Carbon Dioxide 30 mmol/L N 22-32 Anion Gap 8 mmol/L N 2-11 Glucose 184 mg/dL High 70-100 Blood Urea Nitrogen 13 mg/dL N 6-24 Creatinine 0.95 mg/dL N 0.67-1.17 BUN/Creatinine Ratio 13.7 N 8-20 Calcium 9.7 mg/dL N 8.6-10.3 Total Protein 7.8 g/dL N 6.4-8.9 Albumin 4.2 g/dL N 3.2-5.2 Globulin 3.6 g/dL N 2-4 Albumin/Globulin Ratio 1.2 N 1-3 Total Bilirubin 0.70 mg/dL N 0.2-1.0 Alkaline Phosphatase 95 U/L N 34-104 Alt 34 U/L N 7-52 Ast 47 U/L High 13-39 Egfr Non- 83.6 N >60 Egfr 107.5 N >60 102 Laboratory test 10/04/2016 [facility] Hemoglobin A1c 8.6 % High Less 103 finding [phone] than 6.0 Laboratory test 04/30/2016 [facility] Surgical SEE RESULT 104 finding [phone] Interface BELOW Order Urine DIP 04/24/2016 In House Lab Leukocytes neg Neg [phone] Urine Nitrites neg Neg Urobilinogen norm Norm Total Protein, Urine neg Neg Urine pH 5 5-6 Urine Blood neg Neg Specific [place] 1.015 1.01-1.02 Urine Ketones neg Neg Urine Bilirubin neg Neg Urine Glucose norm Norm Lipid Profile 01/04/2016 [facility] Triglycerides 151 mg/dL N 105 (Trig/Chol/HDL) [phone] Cholesterol 174 mg/dL N 106 HDL Cholesterol 36.9 mg/dL N 107 LDL Cholesterol 107 mg/dL N 108 Laboratory test 01/04/2016 [facility] Hemoglobin A1c 6.2 % High Less 109 finding [phone] than 6.0 Comp Metabolic 01/04/2016 [facility] Sodium 136 N 133-145 Panel [phone] mmol/L Potassium 3.6 mmol/L N 3.5-5.0 Chloride 100 mmol/L Low 101-111 Co2 Carbon Dioxide 28 mmol/L N 22-32 Anion Gap 8 mmol/L N 2-11 Glucose 164 mg/dL High 70-100 Blood Urea Nitrogen 18 mg/dL N 6-24 Creatinine 1.00 mg/dL N 0.67-1.17 BUN/Creatinine Ratio 18.0 N 8-20 Calcium 9.0 mg/dL N 8.6-10.3 Total Protein 6.8 g/dL N 6.4-8.9 Albumin 4.2 g/dL N 3.2-5.2 Globulin 2.6 g/dL N 2-4 Albumin/Globulin Ratio 1.6 N 1-3 Total Bilirubin 0.70 mg/dL N 0.2-1.0 Alkaline Phosphatase 76 U/L N 34-104 Alt 41 U/L N 7-52 Ast 43 U/L High 13-39 Egfr Non- 79.1 N >60 Egfr 101.7 N >60 110 Laboratory test 01/04/2016 [facility] Vitamin B12 329 pg/mL N 180-914 111 finding [phone] Folate 18.47 ng/mL N >3.99 Protein 01/04/2016 [facility] Total 7.1 g/dL N 6.3 - Electrophoresis [phone] Protein(Pep) 7.9 Albumin 3.4 g/dL N 3.4-4.7 Alpha-1 Globulin 0.2 g/dL N 0.1-0.3 Alpha-2 Globulin 1.3 g/dL Abnormal 0.6-1.0 Beta Globulin 1.0 g/dL N 0.7-1.2 Gamma Globulin 1.2 g/dL N 0.6-1.6 Albumin/Globulin Ratio 0.92 N Impression See Comment N 112 Lead 01/04/2016 [facility] Lead <1.0 g/dL N 0.0- 4.9 113 [phone] Arthritis Panel 01/04/2016 [facility] Uric Acid 6.8 mg/dL N 4.4-7.6 [phone] Erythrocyte Sed Rate 24 mm/Hr High 0-20 Rheumatoid Factor <15 IU/mL N <15 114 Anti-Nuclear Antibody 0.2 U N 115 Cyclic Citrullinated Peptide <15.6 U N 116 Interpretation See Comment N 117 Laboratory test 09/09/2015 [facility] CSF Glucose 58 mg/dL N 40-70 118, 119 finding [phone] CSF Total Protein 148 mg/dL High 15-45 120 CSF Cell Count 09/09/2015 [facility] Body Fluid Appearance Clear N [phone] Body Fluid Color Colorless N CSF Tube # 4 N Body Fluid Volume 0.5 mL N Body Fluid WBC 341 High 121 Body Fluid RBC 2 N Body Fluid Neutrophils 3 N Body Fluid Lymph 96 N Body Fluid [place] 1 N Body Fluid Total Cells Counted 100 N Fluid Reviewed By MD (SEE NOTE) N 122 Laboratory test 09/09/2015 [facility] CSF Culture & Gram SEE RESULT 123 finding [phone] Stain BELOW Leukemia/Lymphom 09/09/2015 [facility] Path Interpretation TNP N a Phenot [phone] 2-8 Marker Path Interpret > 16 Marker TNP N Path Interpret 9-15 Marker (SEE NOTE) N 124 Herpes Simplex PCR 09/09/2015 [facility] Herpes Source CSF N [phone] HSV 1 PCR Negative N Negative HSV 2 PCR Negative N Negative 125 CSF Cell Count 09/09/2015 [facility] Body Fluid Appearance Clear N [phone] Body Fluid Color Colorless N CSF Tube # 4 N Body Fluid Volume 0.5 mL N Body Fluid WBC 341 High 126 Body Fluid RBC 2 N Body Fluid Neutrophils 3 N Body Fluid Lymph 96 N Body Fluid [place] 1 N Body Fluid Total Cells Counted 100 N Fluid Reviewed By MD (SEE NOTE) N 127 Laboratory test 09/09/2015 [facility] CSF Glucose 58 mg/dL N 40-70 128 finding [phone] CSF Total Protein 148 mg/dL High 15-45 129 CSF Culture & Gram Stain SEE RESULT BELOW 130 Leukemia/Lymphoma 09/09/2015 [facility] Path Interpretation TNP N Phenot [phone] 2-8 Marker Path Interpret > 16 Marker TNP N Path Interpret 9-15 Marker (SEE NOTE) N 131 Herpes Simplex PCR 09/09/2015 [facility] Herpes Source CSF N [phone] HSV 1 PCR Negative N Negative HSV 2 PCR Negative N Negative 132 Comp Metabolic 07/18/2015 [facility] Sodium 135 mmol/ L N 133-145 133 Panel [phone] Potassium 3.7 mmol/L N 3.5-5.0 Chloride 98 mmol/L Low 101-111 Co2 Carbon Dioxide 28 mmol/L N 22-32 Anion Gap 9 mmol/L N 2-11 Glucose 112 mg/dL High 70-100 Blood Urea Nitrogen 21 mg/dL N 6-24 Creatinine 0.99 mg/dL N 0.67-1.17 BUN/Creatinine Ratio 21.2 High 8-20 Calcium 9.4 mg/dL N 8.6-10.3 Total Protein 7.0 g/dL N 6.4-8.9 Albumin 4.2 g/dL N 3.2-5.2 Globulin 2.8 g/dL N 2-4 Albumin/Globulin Ratio 1.5 N 1-3 Total Bilirubin 0.60 mg/dL N 0.2-1.0 Alkaline Phosphatase 74 U/L N 34-104 Alt 53 U/L High 7-52 Ast 42 U/L High 13-39 Egfr Non- 80.3 N >60 Egfr 103.3 N >60 134 CBC Auto 07/18/2015 [facility] White Blood 11.9 10^3/ uL High 3.5-10.8 Diff [phone] Count Red Blood Count 5.17 10^6/uL N 4.0-5.4 Hemoglobin 16.0 g/dL N 14.0-18.0 Hematocrit 47 % N 42-52 Mean Corpuscular Volume 92 fL N 80-94 Mean Corpuscular Hemoglobin 31 pg N 27-31 Mean Corpuscular HGB Conc 34 g/dL N 31-36 Red Cell Distribution Width 13 % N 10.5-15 Platelet Count 217 10^3/uL N 150-450 Mean Platelet Volume 7 um3 Low 7.4-10.4 Abs Neutrophils 8.2 10^3/uL High 1.5-7.7 Abs Lymphocytes 2.4 10^3/uL N 1.0-4.8 Abs Monocytes 1.0 10^3/uL High 0-0.8 Abs Eosinophils 0.3 10^3/uL N 0-0.6 Abs Basophils 0 10^3/uL N 0-0.2 Abs Nucleated RBC 0.02 10^3/uL N Granulocyte % 68.8 % N 38-83 Lymphocyte % 20.1 % Low 25-47 Monocyte % 8.6 % N 1-9 Eosinophil % 2.1 % N 0-6 Basophil % 0.4 % N 0-2 Nucleated Red Blood Cells % 0.1 N Laboratory test 07/18/2015 [facility] C Reactive 8.22 mg/L High < 5.00 135 finding [phone] Protein Erythrocyte Sed Rate 25 mm/Hr High 0-14 Rheumatoid Factor <15 IU/mL N <15 136 Cher (Antinuclear Antibodies) Negative N Negative TSH (Thyroid Stim Horm) 1.17 ?IU/mL N 0.34-5.60 Urine DIP 04/04/2015 [facility] [place] 1.015 1.01-1.02 [phone] Urine pH 5 5-6 Leukocytes neg Neg Urine Nitrites neg Neg Total Protein, Urine neg Neg Urine Glucose norm Norm Urine Ketones neg Neg Urobilinogen norm Norm Urine Bilirubin neg Neg Urine Blood neg Neg Comp Metabolic Panel 04/04/2015 [facility] [facility] Sodium 134 mmol/L N 133-145 [phone] Potassium 3.6 mmol/L N 3.5-5.0 Chloride 98 mmol/L Low 101-111 Co2 Carbon Dioxide 26 mmol/L N 22-32 Anion Gap 10 mmol/L N 2-11 Glucose 135 mg/dL High 70-100 Blood Urea Nitrogen 19 mg/dL N 6-24 Creatinine 1.00 mg/dL N 0.67-1.17 BUN/Creatinine Ratio 19.0 N 8-20 Calcium 9.6 mg/dL N 8.6-10.3 Total Protein 7.6 g/dL N 6.4-8.9 Albumin 4.5 g/dL N 3.2-5.2 Globulin 3.1 g/dL N 2-4 Albumin/Globulin Ratio 1.5 N 1-3 Total Bilirubin 0.40 mg/dL N 0.2-1.0 Alkaline Phosphatase 86 U/L N 34-104 Alt 32 U/L N 7-52 Ast 34 U/L N 13-39 Egfr Non- 79.4 N >60 Egfr 102.1 N >60 137 Laboratory test 04/04/2015 [facility] Hemoglobin A1c 5.7 % N Less than 138 finding [phone] (Glyco HGB) 6.0 1 REFERENCE VALUE Cutoff: 500 2 REFERENCE VALUE Cutoff: 200 3 REFERENCE VALUE Cutoff: 100 4 REFERENCE VALUE Cutoff: 150 5 ADDITIONAL INFORMATION This report is intended for use in clinical monitoring or management of patients. It is not intended for use in employment-related testing. 6 REFERENCE VALUE Cutoff: 200 mg/L 7 Tylenol 3 8 Metabolite of codeine REFERENCE VALUE Cutoff: 100 9 Lani Alexander, MS Contin; Also a minor metabolite (10%) of codeine and can be seen in low concentrations (<2,000 ng/mL) with poppy seed ingestion. 10 Metabolite of morphine REFERENCE VALUE Cutoff: 100 11 Metabolite of heroin 12 Lortab, [place], Vicodin; Also a very minor metabolite of codeine and impurity (<1%) of oxycodone. 13 Metabolite of hydrocodone 14 Metabolite of hydrocodone 15 Dilaudid, Exalgo; Also a metabolite of hydrocodone and a minor (<5%) metabolite of morphine. 16 Metabolite of hydromorphone REFERENCE VALUE Cutoff: 100 17 Endocet, Percocet, Oxycontin 18 Metabolite of oxycodone 19 Numorphan, Opana; Also a metabolite of oxycodone. 20 Metabolite of oxymorphone REFERENCE VALUE Cutoff: 100 21 Metabolite of oxymorphone 22 Actiq, Duragesic, Fentora 23 Metabolite of fentanyl 24 Demerol 25 Metabolite of meperidine 26 Narcan 27 Metabolite of naloxone REFERENCE VALUE Cutoff: 100 28 Dolophine 29 Metabolite of methadone 30 Darvon, Darvocet 31 Metabolite of propoxyphene 32 Tradol, Ultram, Ultracet 33 Metabolite of tramadol 34 Nucynta 35 Metabolite of tapentadol 36 Metabolite of tapentadol REFERENCE VALUE Cutoff: 100 37 Buprenex, Suboxone 38 Metabolite of buprenorphine 39 Metabolite of buprenorphine 40 Test detected the presence of both morphine and its metabolite (iyqtistj-7-qonr-glucuronide). Suspect use of morphine within the past three days. Alternatively, these results could also be suggestive of heroin use. Low levels of morphine can also be seen following poppy seed ingestion. Test detected the presence of oxycodone and one of its metabolites (noroxycodone). Suspect use of oxycodone within the past three days. ADDITIONAL INFORMATION This test was developed and its performance characteristics determined by [facility] in a manner consistent with CLIA requirements. This test has not been cleared or approved by the U.S. Food and Drug Administration. Test Performed by: [address] [address] 41 Test Performed by: [facility] [address] [place] [id number] Forrest Angela M.D. Director of Laboratory 42 Because ethnic data is not always readily [...] 15-29 5 Kidney failure <15 (or dialysis) 43 Please check labs 2 days before follow up 44 Because ethnic data is not always readily [...] 15-29 5 Kidney failure <15 (or dialysis) 45 Please check labs 2 days before follow up 46 Because ethnic data is not always readily [...] 15-29 5 Kidney failure <15 (or dialysis) 47 Please check labs 2 days before follow up 48 Therapeutic target for the treatment of diabetes mellitus patients is <7% HBA1C, and in selective patients <6.0%. Please refer to [place] Diabetes Association diabetic care guidelines for further information. 49 Please check labs 2 days before follow up 50 Desirable: <150 Borderline High: 150-199 High: 200-499 Very High: >500 51 Desirable: <200 Borderline High: 200-239 High: >239 52 Low: <40 Desirable: 40-60 High: >60 53 Desirable: <100 Near Optimal: 100-129 Borderline High: 130-159 High: 160-189 Very High: >189 54 Because ethnic data is not always [...] 5 Kidney failure <15 (or dialysis) 55 Please check labs 2 days before follow up 56 Please check labs 2 days before follow up 57 Acute inflammation: >10.00 58 Retail Seasonal Specialist: [id number] 59 Unable to calculate due to low microalbumin 60 SEE RESULT BELOW Name: PATO BERRY : [address]: Larry Mcclain MD Acct: [id number] Unit: [id number] AGE: 52 Location: OR Re10/18/17 SEX: M Status: LEONEL LAY SPEC: [id number] HUGO: 10/18/17- SUBM DR: Larry Mcclain MD REQ: [id number] RECD: 10/18/17-1222 STATUS: VI TAVARES DR: Enrique Shrestha MD _ ORDERED: LEVEL 4 FINAL DIAGNOSIS Colon, 80 cm, biopsy: -- Tubular adenoma. -- No high grade dysplasia or malignancy. CLINICAL HISTORY Screening/Surveillance for malignancy in asymptomatic patient. History of polyps, incomplete POST-OPERATIVE DIAGNOSIS Colonoscopy to cecum, fair to poor prep ? snare polyp at 80 cm. Conclusions/ Plan: 5-10 years GROSS DESCRIPTION The specimen is received in formalin labeled, Polyp at 80 cm, and consists of a 0.4 x 0.2 x 0.1 cm winkler-pink irregular soft tissue fragment which is submitted entirely in one cassette. Signed (signature on file) Forrest Angela MD 1157 END OF REPORT DEPARTMENT OF PATHOLOGY, [address] [place] [address] Forrest Angela M.D. Director [facility] # [id number] 61 Retail Seasonal Specialist: [id number] 62 REFERENCE VALUE 19.0 - 31.0 Test Performed by: [facility] [address] [place] [address] 63 Test Performed by: [facility] [address] [place] [address] 64 REFERENCE VALUE <=1.0 (Negative) Test Performed by: [facility] - [facility] [address] [place] [address] 65 REFERENCE VALUE <4.0 (Negative) 66 REFERENCE VALUE <6.0 (Negative) Test Performed by: [facility] [address] [place] [address] 67 REFERENCE VALUE <0.1 (Negative) Test Performed by: [facility] - [address] [address] 68 A negative serum IgA endomysial antibody is usually seen in normal individuals, however a diagnosis of celiac disease, dermatitis herpetiformis and other gluten sensitive disorders cannot be completely excluded, as this test may be negative in a subset of individuals with these disorders. If the clinical suspicion for one of these disorders is high, recommend further testing for gluten sensitivity as indicated by the Celiac Disease Comprehensive [place] ([place] [facility] Code CDCOM). In addition serum IgA endomysial antibody may also be negative in gluten-sensitive patients (with celiac disease, dermatitis herpetiformis or other gluten-sensitive disorders), who adhere to a strict gluten-free diet. ADDITIONAL INFORMATION This test has been modified from the casket assembler's instructions. Its performance characteristics were determined by [facility] in a manner consistent with CLIA requirements. This test has not been cleared or approved by the U.S. Food and Drug Administration. Test Performed by: [facility] [address] [place] [address] 69 REFERENCE VALUE <20.0 (Negative) Test Performed by: [facility] [address] [place] [address] 70 REFERENCE VALUE <20.0 (Negative) 71 [id number] 72 Acute inflammation: >10.00 73 SEE RESULT BELOW Name: PATO BERRY : [address]: Patrizia Centeno MD Acct: [id number] Unit: [id number] AGE: 51 Location: ED Re07/20/17 SEX: M Status: REG ER SPEC: [id number] HUGO: 07/21/17-[address]: Drake Alejandra MD REQ: [id number] RECD: 07/21/17-1255 STATUS: COMP ANUSHA DR: Enrique Centeno MD _ SOURCE: STOOL SPDESC: ORDERED: Occult Bl, Scn Procedure Result Reported Site Stool Occult Blood (1) Final 07/21/17- 1302 ML Stool Occult Blood Negative * ML - MAIN LAB (PSC1) . END OF REPORT * ML=Testing performed at Main Lab DEPARTMENT OF PATHOLOGY, [address] [place] [address] Forrest Angela M.D. Director [facility] # [id number] 74 Comment: add on SST SENT 75 Comment: add on SST SENT 76 Retail Seasonal Specialist: [id number] 77 SEE RESULT BELOW Name: PATO BERRY : [address]: Melody Andino DO Acct: [id number] Unit: [id number] AGE: 51 Location: [facility] 413- Re07/21/17 SEX: M Status: ADM Aicha SPEC: [id number] HUGO: 07/21/[address] [facility] [address]: Deloris DAVIES REQ: [id number] RECD: 07/21/17 STATUS: HERBIE TAVARES DR: Enrique Pelayo MD _ SOURCE: URINE SPDESC: ORDERED: Urine Culture Procedure Result Reported Site Urine Culture Final 07/22/17- 08 ML No growth of clinically significant organisms * ML - MAIN LAB (PSC1) . END OF REPORT * ML=Testing performed at Main Lab DEPARTMENT OF PATHOLOGY, [address] [place] [address] Forrest Angela M.D. Director [facility] # [id number] [address] [facility] Severe Sepsis and Septic Shock Management Bundle Measure requires all lactic acids initially measuring >2.0 mmol/L be repeated. 79 Because ethnic data is not always readily [...] 15-29 5 Kidney failure <15 (or dialysis) 80 Acute inflammation: >10.00 81 [id number] Therapeutic target for the treatment of diabetes mellitus patients is <7% HBA1C, and in selective patients <6.0%. Please refer to [place] Diabetes Association diabetic care guidelines for further information. 83 Because ethnic data is not always readily [...] 15-29 5 Kidney failure <15 (or dialysis) 84 Acute inflammation: >10.00 85 Please check labs in 3 to 4 weeks 86 Because ethnic data is not always readily [...] 15-29 5 Kidney failure <15 (or dialysis) 87 Acute inflammation: >10.00 88 Retail Seasonal Specialist: [id number] Retail Seasonal Specialist: [id number] 90 Because ethnic data is not always readily [...] 15-29 5 Kidney failure <15 (or dialysis) 91 Test Performed by: [address] [address] 92 [id number] Therapeutic target for the treatment of diabetes Mellitus patients is <7% HBA1C, and in selective patients <6.0%.Please refer to [place] Diabetes Association Diabetic care guidelines for further information. 94 [id number] 95 Unable to calculate due to low microalbumin 96 [id number] 97 Acute inflammation: >10.00 98 Desirable <150 Borderline high 150-199 High 200-499 Very High >500 99 Desirable <200 Borderline high 200-239 High >239 100 Low <40 Desirable: 40-60 High: >60 101 Desirable: <100 mg/dL Near Optimal: 100-129 mg/dL Borderline High: 130-159 mg/dL High: 160-189 mg/dL Very High: >189 mg/dL 102 Because ethnic data is not always readily [...] 15-29 5 Kidney failure <15 (or dialysis) 103 Therapeutic target for the treatment of diabetes Mellitus patients is <7% HBA1C, and in selective patients <6.0%.Please refer to [place] Diabetes Association Diabetic care guidelines for further information. 104 SEE RESULT BELOW Name: BERRYPATO : [address]: Larry Mcclain MD Acct: [id number] Unit: [id number] AGE: 50 Location: ENDO Re04/30/16 SEX: M Status: REG REF SPEC: [id number] HUGO: 04/30/[address] [facility] [address]: Larry Mcclain MD REQ: [id number] RECD: 04/30/16 STATUS: VI TAVARES DR: Enrique Shrestha MD [...] performed at Main Lab DEPARTMENT OF PATHOLOGY, [address] [place] [address] Forrest Angela M.D. Director [facility] # [id number] 105 Desirable <150 Borderline high 150-199 High 200-499 Very High >500 106 Desirable <200 Borderline high 200-239 High >239 107 Low <40 Desirable: 40-60 High: >60 108 Desirable: <100 mg/dL Near Optimal: 100-129 mg/dL Borderline High: 130-159 mg/dL High: 160-189 mg/dL Very High: >189 mg/dL 109 Therapeutic target for the treatment of diabetes Mellitus patients is <7% HBA1C, and in selective patients <6.0%.Please refer to [place] Diabetes Association Diabetic care guidelines for further information. 110 Because ethnic data is not always readily [...] 15-29 5 Kidney failure <15 (or dialysis) 111 Normal Range 180 to 914 Indeterminate Range 145 to 180 Deficient Range <145 112 RESULT: No apparent monoclonal protein on serum electrophoresis. Test Performed by: [address] [address] Flat Locker: Elijah Mayberry II, M.D., Ph.D. 113 ADDITIONAL INFORMATION Testing performed by Inductively Coupled Plasma-Mass Spectrometry (ICP-MS). This test was developed and its performance characteristics determined by [facility] in a manner consistent with CLIA requirements. This test has not been cleared or approved by the U.S. Food and Drug Administration. 114 Test Performed by: [facility] - [address] [address] Flat Locker: Elijah Mayberry II, M.D., Ph.D. 115 REFERENCE VALUE <=1.0 (Negative) 116 REFERENCE VALUE <20.0 (Negative) 117 Tests for antibodies to dsDNA and NUBIA antigens are not performed automatically unless the CHER result is > or= 3.0 U. Studies performed at [facility] indicate that positive CHER results <3.0 U are rarely accompanied by positive second order tests. Test Performed by: [facility] [address] Flat Locker: Elijah Mayberry II, M.D., Ph.D. 118 Comment: Tube 4 119 Comment: Tube 2 120 Comment: Tube 2 121 Verbal to [id number] by [id number] at 1540 on 09/09/15. Results read back accurately. 122 Profound lymphocytosis. Recommend correlation with viral serology studies. Specimen sent for flow cytometry. Reviewed by: Lakeisha Alvares MD 123 SEE RESULT BELOW Name: PATO BERRY : [address]: Kami Ferguson MD Acct: [id number] Unit: [id number] AGE: 49 Location: [facility] 413- Re09/09/15 Dis: 09/12/15 SEX: M Status: DIS IN SPEC: [id number] HUGO: 09/09/[address]: Asa Li MD REQ: [id number] RECD: 09/09/15 STATUS: HERBIE TAVARES DR: Enrique Shrestha MD _ SOURCE: CSF SPDESC: ORDERED: CSF Cult/GS COMMENTS: Comment: Tube 3 Procedure Result Reported Site CSF Gram Stain Final 09/09/15- 1548 ML 4+ Nucleated Cells No Polys Observed No Organisms Seen Preparation By Cytospin Smear CSF Culture Final 09/13/15- 0908 ML No Growth Day 4 * ML - [facility] ([facility]) . END OF REPORT * ML=Testing performed at [facility] Lab DEPARTMENT OF PATHOLOGY, [address] [place] [address] Forrest Angela M.D. Director [facility] # [id number] 124 FINAL DIAGNOSIS: Specimen Source: Cerebrospinal fluid Flow [...] Lakeisha Alvares MD Technical component performed by: [facility] [place] [address] Flat Locker: Elijah Mayberry II, MD, PhD. 125 ADDITIONAL INFORMATION Analyte Specific Reagent: This test was developed and its performance characteristics determined by [facility]. It has not been cleared or approved by the U.S. Food and Drug Administration. Test Performed by: [place] [address] Flat Locker: Elijah Mayberry II, M.D., Ph.D. 126 Verbal to [id number] by [id number] at 1540 on 09/09/15. Results read back accurately. 127 Profound lymphocytosis. Recommend correlation with viral serology studies. Specimen sent for flow cytometry. Reviewed by: Lakeisha Alvares MD 128 Comment: Tube 2 129 Comment: Tube 2 130 SEE RESULT BELOW Name: PATO BERRY : [address]: Kami Ferguson MD Acct: [id number] Unit: [id number] AGE: 49 Location: [place] [address] Re09/09/15 SEX: M Status: ADM IN SPEC: [id number] HUGO: 09/09/[address]: Asa Li MD REQ: [id number] RECD: 09/09/15 STATUS: RES OTHR DR: Enrique Shrestha MD _ SOURCE: CSF SPDESC: ORDERED: CSF Cult/GS COMMENTS: Comment: Tube 3 Procedure Result Reported Site CSF Gram Stain Final 09/09/15- 1548 ML 4+ Nucleated Cells No Polys Observed No Organisms Seen Preparation By Cytospin Smear CSF Culture Preliminary 09/12/15- 0901 ML No Growth Day 3 * ML - MAIN LAB ([facility]) . END OF REPORT * ML=Testing performed at Main Lab DEPARTMENT OF PATHOLOGY, [address] [place] [address] Forrest Angela M.D. Director [facility] # [id number] 131 FINAL DIAGNOSIS: Specimen Source: Cerebrospinal fluid Flow [...] Lakeisha Alvares MD Technical component performed by: [facility] [place] [address] Flat Locker: Elijah Mayberry II, MD, PhD. 132 ADDITIONAL INFORMATION Analyte Specific Reagent: This test was developed and its performance characteristics determined by [facility]. It has not been cleared or approved by the U.S. Food and Drug Administration. Test Performed by: [address] [address] Flat Locker: Elijah Mayberry II, M.D., Ph.D. 133 D/w patient 134 Because ethnic data is not always readily [...] 15-29 5 Kidney failure <15 (or dialysis) 135 Acute inflammation: >10.00 136 Test Performed by: [address] [address] Flat Locker: Elijah Mayberry II, M.D., Ph.D. 137 Because ethnic data is not always readily [...] 15-29 5 Kidney failure <15 (or dialysis) 138 Therapeutic target for the treatment of diabetes Mellitus patients is <7% HBA1C, and in selective patients <6.0%.Please refer to [place] Diabetes Association Diabetic care guidelines for further information. Procedures Date Code Description Status 06/13/2018 29365 Therapeutic,Prophylactic,Or Diagnostic Inj,SC/Im Specify Completed Drug 05/30/2016 45381 EKG, at Least 12 Leads w/Interpretation and Report Completed 09/08/2015 51275 Therapeutic,Prophylactic,Or Diagnostic Inj,SC/Im Specify Completed Drug Encounters Type Date Location Provider Dx Diagnosis [facility] 10:30a MD [place] diastolic (congestive) heart failure Office Visit 12/01/2018 Main Office Enrique I50.30 Unspecified 4:45p MD [place] diastolic (congestive) heart failure E11.65 Type 2 diabetes mellitus with hyperglycemia Office Visit 07/25/2018 11:15a Main Office Enrique Shrestha E11.65 Type 2 diabetes mellitus with hyperglycemia E66.8 Other obesity Office Visit 06/13/2018 Main Office Enrique S22.32xA Fracture of one 9:45a MD [place] rib, left side, init for clos fx Office Visit 12/23/2017 Main Office Enrique E11.65 Type 2 diabetes 10:30a MD [place] mellitus with hyperglycemia I10 Essential (primary) hypertension K59.00 Constipation, unspecified G47.00 Insomnia, unspecified Office Visit 10/30/2017 4:45p Main Office Enrique Shrestha, M67.441 Ganglion, right MD hand Office Visit 10/23/2017 3:00p Main Office Enrique Shrestha I10 Essential MD (primary) hypertension E11.65 Type 2 diabetes mellitus with hyperglycemia G47.00 Insomnia, unspecified Office Visit 10/03/2017 1:45p Main Office Enrique Shrestha, Z00.8 Encounter for other general examination Office Visit 07/26/2017 9:00a Main Office Enrique Shrestha, R10.9 Unspecified abdominal pain K74.60 Unspecified cirrhosis of liver Office Visit 07/17/2017 10:45a Main Office Enrique Shrestha, R10.9 Unspecified abdominal pain E11.65 Type 2 diabetes mellitus with hyperglycemia Office Visit 04/17/2017 5:00p Main Office Enrique Shrestha MD L60.0 Ingrowing nail J44.9 Chronic obstructive pulmonary disease, unspecified Office Visit 12/24/2016 11:15a Main Office Enrique Shrestha, E11.65 Type 2 diabetes MD mellitus with hyperglycemia M54.2 Cervicalgia K30 Functional dyspepsia Z23 Encounter for immunization Office Visit 11/08/2016 9:15a Main Office Enrique Shrestha, E11.65 Type 2 diabetes MD mellitus with hyperglycemia K40.90 Unil inguinal hernia, w/o obst or gangr, not spcf as recur M25.541 Pain in joints of right hand Z23 Encounter for immunization Office Visit 10/18/2016 9:00a Main Office Enrique Shrestha E11.65 Type 2 diabetes MD mellitus with hyperglycemia E66.8 Other obesity Office Visit 10/04/2016 10:30a Main Office Enrique Shrestha MD R73.03 Prediabetes G47.30 Sleep apnea, unspecified J44.9 Chronic obstructive pulmonary disease, unspecified Office Visit 07/18/2016 11:30a Main Office Enrique Shrestha, R06.00 Dyspnea, MD unspecified Office Visit 06/22/2016 11:30a Main Office Enrique Shrestha I10 Essential (primary) hypertension 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[place] [facility] Visit 05/30/2016 9:45a Main Office Enrique Shrestha J44.9 Chronic MD obstructive pulmonary disease, unspecified K13.79 Other lesions of oral mucosa Office Visit 04/24/2016 3:00p Main Office Krish Reyes M54.9 Dorsalgia, III, FINANCIAL AID MANAGER-C unspecified Office Visit 04/04/2016 3:30p Main Office Enrique K40.90 Unil inguinal MD [place] hernia, w/o obst or gangr, not spcf as recur G62.9 Polyneuropathy, unspecified I10 Essential (primary) hypertension Office Visit 02/20/2016 9:30a Main Office Enrique Shrestha K40.90 Unil inguinal MD hernia, w/o obst or gangr, not spcf as recur G56.00 Carpal tunnel syndrome, unspecified upper limb G62.9 Polyneuropathy, unspecified Office Visit 02/06/2016 10:45a Main Office Enrique G62.9 Polyneuropathy, MD [place] unspecified Office Visit 01/04/2016 8:45a Main Office Enrique M54.5 Low back pain MD [place] Z12.11 Encounter for screening for malignant neoplasm of colon G62.9 Polyneuropathy, unspecified J44.9 Chronic obstructive pulmonary disease, unspecified G56.00 Carpal tunnel syndrome, unspecified upper limb Office Visit 11/28/2015 3:30p Main Office Enrique Shrestha F51.12 Insufficient sleep MD syndrome J44.9 Chronic obstructive pulmonary disease, unspecified M54.5 Low back pain Office Visit 09/26/2015 Main Office Enrique G57.80 Other specified 1:00p MD [place] mononeuropathies of unspecified lower limb Office Visit 09/16/2015 Main Office Enrique A87.9 Viral meningitis, 10:15a MD [place] unspecified F51.02 Adjustment insomnia M54.5 Low back pain J44.9 Chronic obstructive pulmonary disease, unspecified Office Visit 09/08/2015 3:00p Main Office Enrique Shrestha J01.90 Acute sinusitis, unspecified Office Visit 08/29/2015 9:15a Main Office Monica Mathews4.5 Low back pain K59.00 Constipation, unspecified Office Visit 08/12/2015 11:45a Main Office Enrique Shrestha MD M54.5 Low back pain J44.9 Chronic obstructive pulmonary disease, unspecified F17.213 Nicotine dependence, cigarettes, with withdrawal Office Visit 07/18/2015 9:45a Main Office Enrique Shrestha MD M54.5 Low back pain Z72.0 Tobacco use R63.5 Abnormal weight gain Office Visit 06/08/2015 9:15a Main Office Enrique Shrestha T14.8 Other injury of MD unspecified body region Office Visit 06/02/2015 9:45a Main Office Monica Mathews4.5 Low back pain T14.8 Other injury of unspecified body region Office Visit 05/18/2015 9:45a Main Office Enrique Shrestha MD M54.5 Low back pain G56.00 Carpal tunnel syndrome, unspecified upper limb Z72.0 Tobacco use Office Visit 05/04/2015 3:15p Main Office Enrique Shrestha MD M54.5 Low back pain Z72.0 Tobacco use I10 Essential (primary) hypertension Office Visit 04/13/2015 5:00p Main Office Enrique Shrestha MD M54.5 Low back pain Z72.0 Tobacco use Office Visit 04/06/2015 5:15p Main Office Enrique Shrestha MD M54.5 Low back pain I10 Essential (primary) hypertension Z72.0 Tobacco use Office Visit 04/04/2015 9:00a Main Office Enrique Shrestha, R06.02 Shortness of MD breath I10 Essential (primary) hypertension B35.3 Tinea pedis Z72.0 Tobacco use Plan of Treatment 12/26/2018 - Enrique Shrestha, MDM79.18 Myalgia, other siteNew Medication:Klor- Con 10 10 Meq - 1-2 by mouth every day as directedComments:New onset of cramping in his large muscles is probably related to hypokalemia, which is in turn probably related to use of Lasix.E11.65 Type 2 diabetes mellitus with hyperglycemiaComments:He had one day history of very high blood sugars. There were some dietary indiscretions, which is the likely trigger. It is possible that his other systemic illnesses are also contributing to his poor diabetic control.I50.30 Unspecified diastolic (congestive) heart failureNew Medication: Lasix 40 mg - 1.5 by mouth every dayComments:His pulmonary symptoms related to cardiac function are progressing rapidly. His oxygen level is nowin the high 80s and he is having increasing symptoms with orthopnea and shortness of breath.We will try to find a dosage of Lasix that is effective for him while continuing to measure his potassium level. I am concerned that his potassium level is getting low since he has been having muscle cramps lately. We are checking a level today. I sent some potassium tablets to his pharmacy in case he needsthem. He likely will need them sooner or later.If his breathing becomes any worse he will probably need to be admitted for IV Lasix and oxygen supplementation.His appointment with cardiology is in 2 weeks to establish care.
--- OUTSIDE RECORDS SUMMARY | 2018-12-28 14:34 | XMS REPORT | Continuity of Care Document ---
:1965 External Reference #:[id number] Author Name Enrique Shrestha MD Address [address] [place] [id number] Care Team Providers Name Role Phone Enrique Shrestha MD Care Team Information Student Recruiter Unavailable Payers Date Identification Numbers Payment Provider Subscriber Effective: 2018 Policy Number: [id number] Medicare - Bswny Umd Pato Shah Berry PayID: [id number] [address] [place] [address] Policy Number: [id number] Medicaid After Medicare Pato Berry Group Name: 2 1 [address] PayID: [id number] [place] [address] Expires: 2018 Policy Number: [id number] [facility] Pato Berry PayID: [id number] [place] [address] Problems Active Problems Provider Date Essential hypertension [...] Medications SIG Qnty Indications Ordering Date Provider Diltiazem HCL ER 1 tab by mouth 60caps I10 Enrique 12/11/2018 twice a day MD Henrietta 120mg Caps ER 12HR Lasix 1 by mouth every 14tabs I50.30 Enrique 12/11/2018 40mg Tablets day MD Henrietta Incruse Ellipta inhale one puff by 60units [...] Strips True Metrix Meter use meter the 1un Enrique 10/03/2017 insurance will MD Henrietta w/Device [...] 15mg twice a day Tablets History Medications Diltiazem HCL ER 1 tabs every 12 [...] once at breakfast for the first week. Thumbplay Ultra 2 use to do finger 1units [...] Shawnti R. 09/16/2015 - 40mcg/Act Aerosol Storm, [place]-C 06/22/2016 Amoxicillin take 1 capsule by 30caps [...] Per 15 MG (Toradol) Injection Injection Ketorolac Sharifaamine Enrique Shrestha MD 09/08/2015 Per 15 MG (Toradol) Injection Immunizations CPT Code Status Date Vaccine Lot # [id number] Given 12/24/2016 Hep B Vaccine Adult, 3 Dose age >20 yrs [id number] Given 11/08/2016 Pneumovax 23 (PPSV23) 65+ years or high risk 2 to [id number] 64 year old 14070 Refused 06/13/2018 Influenza Virus Vaccine, Quadrivalent, 3 Yr > Quad , Preserv Free [id number] Refused 12/23/2017 Influenza Virus Vaccine, Quadrivalent, 3 Yr > Quad , Preserv Free [id number] Refused 10/04/2016 Influenza Virus Vaccine, 3 Yrs And Above Vital Signs Date Vital Result Comment 12/11/2018 10:21am Weight 295.00 lb Weight 133.812 [...] Date Facility Test Result H/L Range Note Drug Abuse 11/04/2018 [facility] Urine Amphetamine Negative ng/mL 1 20 Urine [phone] Urine Barbiturates Negative ng/mL 2 Urine Benzodiazepines Negative ng/mL 3 Urine Cocaine Negative ng/mL 4 Urine Phencyclidine Negative ng/mL Cutoff: 25 Urine Tetrahydrocannabinol Negative ng/mL Cutoff: 50 5 Creatinine, Urine 46.8 mg/dL Specific [place] 1.008 pH 7.4 Oxidants Negative 6 Adulterants Comment Normal Codeine, Ur Not Detected ng/mL Cutoff: 25 7 Fwmfycg-1-upne-glucuronide, Ur Not Detected ng/mL 8 Morphine, Ur Present ng/mL Abnormal Cutoff: 25 9 Ukqqezjx-9-klbf-glucuronide, U Present ng/mL Abnormal 10 6-monoacetylmorphine, Ur Not Detected ng/mL Cutoff: 25 11 Hydrocodone, Ur Not Detected ng/mL Cutoff: 25 12 Norhydrocodone, Ur Not Detected ng/mL Cutoff: 25 13 Dihydrocodeine, Ur Not Detected ng/mL Cutoff: 25 14 Hydromorphone, Ur Not Detected ng/mL Cutoff: 25 15 Lgfbkzohkkoqm4wppjshuehusaryj Not Detected ng/mL 16 Oxycodone, Ur Present ng/mL Abnormal Cutoff: 25 17 Noroxycodone, Ur Present ng/mL Abnormal Cutoff: 25 18 Oxymorphone, Ur Not Detected ng/mL Cutoff: 25 19 Kbylsjdauve-5-hhvi-glucuronide Not Detected ng/mL 20 Noroxymorphone, Ur Not Detected ng/mL Cutoff: 25 21 Fentanyl, Ur Not Detected ng/mL Cutoff: 2 22 Norfentanyl, Ur Not Detected ng/mL Cutoff: 2 23 Meperidine, Ur Not Detected ng/mL Cutoff: 25 24 Normeperidine, Ur Not Detected ng/mL Cutoff: 25 25 Naloxone, Ur Not Detected ng/mL Cutoff: 25 26 Nsqexprq-2-hiqo-glucuronide, U Not Detected ng/mL 27 Methadone, Ur [...] Ur Not Detected ng/mL Cutoff: 50 35 Fuforjkrcv-ptog-pskoggqjhfk, U Not Detected ng/mL 36 Buprenorphine, Ur Not Detected ng/mL Cutoff: 5 37 Norbuprenorphine, Ur Not Detected ng/mL Cutoff: 5 38 Norbuprenorphine glucuronide Not Detected ng/mL Cutoff: 20 39 Opioid Interpretation See Comment 40 Comp Metabolic Panel 10/17/2018 [facility] Sodium 136 mmol/L N 135-145 [phone] Potassium 4.1 mmol/L N 3.5-5.0 Chloride 102 [...] Egfr Non- 105.7 >60 Egfr 127.9 >60 41 Laboratory test 10/17/2018 [facility] C Reactive 2.94 mg/L N <8.01 42 finding [phone] Protein CBC Auto Diff 10/17/2018 [facility] White Blood 8.4 N 3.5-10.8 [phone] Count 10^3/uL Red Blood Count 4.56 10^6/uL N 4.18-5.48 [...] Blood Cells % 0 Laboratory test 10/17/2018 [facility] Erythrocyte Sed 15 mm/Hr N 0-20 43 finding [phone] Rate Laboratory test 07/25/2018 In House Lab Hemoglobin A1c 6.3 finding [phone] Poct Comp Metabolic 07/16/2018 [facility] Sodium 137 mmol/ L N 135-145 Panel [phone] Potassium 4.0 mmol/L N 3.5-5.0 Chloride 103 [...] Non- 78.5 >60 Egfr 94.9 >60 44 Laboratory test 07/16/2018 [facility] C Reactive 2.62 mg/L N <8.01 finding [phone] Protein CBC Auto Diff 07/16/2018 [facility] White Blood 9.3 N 3.5-10.8 [phone] Count 10^3/uL Red Blood Count 4.60 10^6/uL N 4.00-5.40 [...] Blood Cells % 0 Laboratory test 07/16/2018 [facility] Erythrocyte Sed 19 mm/Hr N 0-20 finding [phone] Rate Comp Metabolic 03/24/2018 [facility] Sodium 134 mmol/ L Low 135-145 Panel [phone] Potassium 4.1 mmol/L N 3.5-5.0 Chloride 99 [...] Egfr Non- 92.1 >60 Egfr 111.5 >60 45 Laboratory test 03/24/2018 [facility] C Reactive 6.88 mg/L N <8.01 46 finding [phone] Protein CBC Auto Diff 03/24/2018 [facility] White Blood 7.6 N 3.5-10.8 [phone] Count 10^3/uL Red Blood Count 4.12 10^6/uL [...] Red Blood Cells % 0.1 Laboratory test 03/24/2018 [facility] Erythrocyte Sed 26 mm/Hr High 0-20 47 finding [phone] Rate Laboratory test 12/23/2017 [facility] Erythrocyte Sed 30 mm/Hr High 0-20 48 finding [phone] Rate CBC Auto Diff 12/23/2017 [facility] White Blood 8.3 N 3.5-10.8 [phone] Count 10^3/uL Red Blood Count 4.35 10^6/uL N 4.00-5.40 [...] Blood Cells % 0 Laboratory test 12/23/2017 [facility] Hemoglobin A1c 6.9 % High 4.0-5.6 49 finding [phone] Lipid Profile 12/23/2017 [facility] Triglycerides 199 50 (Trig/Chol/HDL) [phone] mg/dL Cholesterol 189 mg/dL 51 HDL Cholesterol 43.8 mg/dL 52 LDL Cholesterol 105 mg/dL 53 Laboratory test 12/23/2017 [facility] Magnesium 2.0 mg/dL N 1.9-2.7 54 finding [phone] Creatine Kinase 68 U/L N 10-223 55 C Reactive Protein 5.09 mg/L High < 5.00 56 Comp Metabolic 12/23/2017 [facility] Sodium 135 mmol/ L Low 139-145 Panel [phone] Potassium 4.2 mmol/L N 3.5-5.0 Chloride 99 [...] Egfr Non- 98.7 >60 Egfr 126.9 >60 57 Laboratory test 11/26/2017 [facility] Point of Care 137 mg/dL High 70-100 58 finding [phone] Glucose Urine 10/23/2017 [facility] Ur Microalbumin < 15.0 Microalbumin [phone] (mg/L) mg/L Random Urine Creatinine 186.23 mg/dL Urine Microalbumin/Creatinine TNP ug/mg <31 59 Laboratory test 10/18/2017 [facility] Surgical SEE RESULT 60 finding [phone] Interface BELOW Order Laboratory test 10/18/2017 [facility] Point of Care 139 mg/dL High 70-10 61 finding [phone] Glucose 0 Platelet Count 08/14/2017 [facility] Platelet Count 123 10^3/uL Low 150-4 [phone] Mean Platelet Volume 7 um3 Low 7.4-10.4 Inr/Protime 08/14/2017 [facility] Inr 0.98 N 0.77- 1.02 [phone] Laboratory test 08/14/2017 [facility] Partial 37.8 High 26.0-36.3 finding [phone] Thrombo seconds Time PTT CBC No Diff 08/12/2017 [facility] White Blood 6.9 10^ 3/uL N 3.5-10.8 [phone] Count Red Blood Count 4.28 10^6/uL N [...] 8 um3 N 7.4-10.4 Laboratory test 08/12/2017 [facility] Inr/Protime 0.99 N 0.77-1.02 finding [phone] Laboratory test 08/02/2017 [facility] Mitochondria M2 <0.1 U 62 finding [phone] Antibody Anti Endomysial Antibody Negative Negative 63 CBC Auto Diff 08/02/2017 [facility] White Blood 9.4 10^3/uL N 3.5-10.8 [phone] Count Red Blood Count 4.67 10^6/uL N 4.0-5.4 [...] Red Blood Cells % 0 Inr/Protime 08/02/2017 [facility] Inr 0.98 N 0.77- 1.02 [phone] Laboratory test 08/02/2017 [facility] Ceruloplasmin 24.6 64 finding [phone] mg/dL Alpha 1 Antitrypsin A1a 138 mg/dL 100 - 190 65 Anti Nuclear Antibody 0.2 U 66 Anti Gliadin Igg And 08/02/2017 [facility] Gliadin IgG <10.0 U 67 Iga AB [phone] Gliadin IgA <10.0 U 68 Transglutaminase Igg 08/02/2017 [facility] Tissue < 1.2 69 & Iga [phone] Transglutaminase IgA U/mL Ab Tissue Transglutaminase IgG Ab <1.2 U/mL 70 Hepatitis 07/26/2017 [facility] Hepatitis B Nonreactive Nonreactive 71 Acute Panel [phone] Surface Antigen Hepatitis B Core IgM Nonreactive Nonreactive Hepatitis A AB IgM Nonreactive Nonreactive Hepatitis C Antibody Nonreactive Nonreactive Laboratory test 07/26/2017 [facility] C Reactive 7.73 mg/L High < 5.00 72 finding [phone] Protein Inr/Protime 07/26/2017 [facility] Inr 0.96 N 0.77- 1.02 [phone] Bilrubin And 07/26/2017 [facility] Total 0.50 N 0.2 -1.0 Indirect [phone] Bilirubin mg/dL Direct Bilirubin 0.10 mg/dL N 0.03-0.18 Indirect Bilirubin 0.4 mg/dL N 0.3-1.0 Laboratory test 07/21/2017 [facility] Stool Occult SEE RESULT 73 finding [phone] Blood, BELOW Screen Laboratory test 07/21/2017 [facility] Lipase 40 U/L N 11.0- 74, 75 finding [phone] 82.0 Laboratory test 07/21/2017 [facility] Point of 155 mg /dL High 70-10 76 finding [phone] Care Glucose 0 Urinalysis 07/21/2017 [facility] Urine Color Pita Profile [phone] Urine Appearance Clear Urine Specific Flushing 1.029 N 1.010-1.030 Urine pH 5.0 N 5-9 Urine Urobilinogen Negative Negative Urine Ketones Negative Negative Urine Protein 1+(30 mg/dL) Abnormal Negative Urine Leukocytes Trace Abnormal Negative Urine Blood Negative Negative Urine Nitrite Negative Negative Urine Bilirubin Negative Negative Urine Glucose Negative Negative Urine White Blood Cell Trace(0-5/hpf) Absent Urine Red Blood Cell Trace(0-2/hpf) Absent Urine Bacteria Absent Absent Laboratory test 07/21/2017 [facility] Urine Culture SEE RESULT 77 finding [phone] BELOW Laboratory test 07/20/2017 [facility] Lactic Acid 1.6 mmol/L N 0.5-2. 78 finding [phone] Comp Metabolic 07/20/2017 [facility] Sodium 134 mmol/ L N 133-14 Panel [phone] Potassium 3.5 mmol/L N 3.5-5.0 Chloride 99 [...] Non- 77.9 >60 Egfr 100.2 >60 79 CBC Auto Diff 07/20/2017 [facility] White Blood 8.0 10^3/uL N 3.5-10.8 [phone] Count Red Blood Count 4.40 10^6/uL N 4.0-5.4 [...] Blood Cells % 0 Laboratory test 07/20/2017 [facility] Magnesium 2.2 mg/dL N 1.9-2.7 finding [phone] Lipase 190 U/L High 11.0-82.0 C Reactive Protein 37.05 mg/L High < 5.00 80 Amylase 54 U/L N 29-103 Laboratory 07/17/2017 [facility] Hemoglobin A1c 6.8 % High 4.0-5.6 81, 82 test finding [phone] CBC Auto Diff 07/12/2017 [facility] White Blood 10.1 N 3.5-10.8 [phone] Count 10^3/uL Red Blood Count 4.61 10^6/uL [...] 0-2 Nucleated Red Blood Cells % 0.1 Comp Metabolic Panel 07/12/2017 [facility] Sodium 134 mmol/L N 133-145 [phone] Potassium 3.3 mmol/L Low 3.5-5.0 Chloride 97 [...] Egfr 111.5 >60 83 Laboratory test 07/12/2017 [facility] Erythrocyte Sed 30 mm/Hr High 0-20 84 finding [phone] Rate Laboratory test 07/12/2017 [facility] C Reactive 11.35 High < 5.00 85 finding [phone] Protein mg/L CBC Auto Diff 06/07/2017 [facility] White Blood 8.7 N 3.5-10.8 [phone] Count 10^3/uL Red Blood Count 4.56 10^6/uL [...] Blood Cells % 0.2 Laboratory test 06/07/2017 [facility] Erythrocyte Sed 38 mm/Hr High 0-20 finding [phone] Rate Comp Metabolic 06/07/2017 [facility] Sodium 132 Low 133-145 Panel [phone] mmol/L Potassium 3.8 mmol/L N 3.5-5.0 Chloride [...] Egfr 119.0 >60 86 Laboratory test 06/07/2017 [facility] C Reactive 10.30 mg/L High < 5.00 87 finding [phone] Protein Laboratory test 01/28/2017 [facility] Point of Care 159 mg/dL High 74-106 88 finding [phone] Glucose Laboratory test 01/28/2017 [facility] Point of Care 115 mg/dL High 74-106 89 finding [phone] Glucose Basic Metabolic 01/18/2017 [facility] Sodium 136 mmol /L N 133-145 Panel [phone] Potassium 4.0 mmol/L N 3.5-5.0 Chloride 100 mmol/L Low 101-111 Co2 Carbon Dioxide 28 mmol/L N 22-32 Anion Gap 8 mmol/L N 2-11 Glucose 138 mg/dL High 70-100 Blood Urea Nitrogen 13 mg/dL N 6-24 Creatinine 0.93 mg/dL N 0.67-1.17 BUN/Creatinine Ratio 14.0 N 8-20 Calcium 9.5 mg/dL N 8.6-10.3 Egfr Non- 85.7 N >60 Egfr 110.2 N >60 90 Laboratory test 01/16/2017 [facility] Helico Pylori Negative N Negative 91 finding [phone] Antigen- Stool Laboratory test 12/24/2016 [facility] Hemoglobin 6.9 % High Less than 92, finding [phone] A1c 6.0 93 Urine 10/18/2016 [facility] Urine 115.10 N 94 Microalbumin [phone] Creatinine mg/dL Random Ur Microalbumin (mg/L) < 15.0 mg/L N Urine Microalbumin/Creatinine TNP ug/mg N <31 95 Laboratory test 10/04/2016 In House Lab Glucose By Moniter 181 High 78- 110 finding [phone] Laboratory test 10/04/2016 [facility] C Reactive Protein 10.55 High < 5.00 96, 97 finding [phone] Lipid Profile 10/04/2016 [facility] Triglycerides 166 N 98 (Trig/Chol/HDL) [phone] mg/dL Cholesterol 182 mg/dL N 99 HDL Cholesterol 35.4 mg/dL N 100 LDL Cholesterol 113 mg/dL N 101 CBC Auto Diff 10/04/2016 [facility] White Blood 8.3 10^3/uL N 3.5-10.8 [phone] Count Red Blood Count 5.01 10^6/uL N [...] % 0 N Comp Metabolic Panel 10/04/2016 [facility] Sodium 136 mmol/L N 133-145 [phone] Potassium 4.0 mmol/L N 3.5-5.0 Chloride 98 [...] 107.5 N >60 102 Laboratory test 10/04/2016 [facility] Hemoglobin A1c 8.6 % High Less 103 finding [phone] than 6.0 Laboratory test 04/30/2016 [facility] Surgical SEE RESULT 104 finding [phone] Interface BELOW Order Urine DIP 04/24/2016 [facility] House Lab Leukocytes neg Neg [phone] Urine Nitrites neg Neg Urobilinogen norm Norm Total Protein, Urine neg Neg Urine pH 5 5-6 Urine Blood neg Neg Specific Flushing 1.015 1.01-1.02 Urine Ketones neg Neg Urine Bilirubin neg Neg Urine Glucose norm Norm Lipid Profile 01/04/2016 [facility] Triglycerides 151 mg/dL N 105 (Trig/Chol/HDL) [phone] Cholesterol 174 mg/dL N 106 HDL Cholesterol 36.9 mg/dL N 107 LDL Cholesterol 107 mg/dL N 108 Laboratory test 01/04/2016 [facility] Hemoglobin A1c 6.2 % High Less 109 finding [phone] than 6.0 Comp Metabolic 01/04/2016 [facility] Sodium 136 N 133-145 Panel [phone] mmol/L Potassium 3.6 mmol/L N 3.5-5.0 Chloride [...] 101.7 N >60 110 Laboratory test 01/04/2016 [facility] Vitamin B12 329 pg/mL N 180-914 111 finding [phone] Folate 18.47 ng/mL N >3.99 Protein 01/04/2016 [facility] Total 7.1 g/dL N 6.3 - Electrophoresis [phone] Protein(Pep) 7.9 Albumin 3.4 g/dL N 3.4-4.7 Alpha-1 Globulin 0.2 g/dL N 0.1-0.3 Alpha-2 Globulin 1.3 g/dL Abnormal 0.6-1.0 Beta Globulin 1.0 g/dL N 0.7-1.2 Gamma Globulin 1.2 g/dL N 0.6-1.6 Albumin/Globulin Ratio 0.92 N Impression See Comment N 112 Lead 01/04/2016 [facility] Lead <1.0 g/dL N 0.0- 4.9 113 [phone] Arthritis Panel 01/04/2016 [facility] Uric Acid 6.8 mg/dL N 4.4-7.6 [phone] Erythrocyte Sed Rate 24 mm/Hr High 0-20 Rheumatoid Factor <15 IU/mL N <15 114 Anti-Nuclear Antibody 0.2 U N 115 Cyclic Citrullinated Peptide <15.6 U N 116 Interpretation See Comment N 117 Laboratory test 09/09/2015 [facility] CSF Glucose 58 mg/dL N 40-70 118, 119 finding [phone] CSF Total Protein 148 mg/dL High 15-45 120 CSF Cell Count 09/09/2015 [facility] Body Fluid Appearance Clear N [phone] Body Fluid Color Colorless N CSF Tube # 4 N Body Fluid Volume 0.5 mL N Body Fluid WBC 341 High 121 Body Fluid RBC 2 N Body Fluid Neutrophils 3 N Body Fluid Lymph 96 N Body Fluid Young 1 N Body Fluid Total Cells Counted 100 N Fluid Reviewed By MD (SEE NOTE) N 122 Laboratory test 09/09/2015 [facility] CSF Culture & Gram SEE RESULT 123 finding [phone] Stain BELOW Leukemia/Lymphom 09/09/2015 [facility] Path Interpretation TNP N a Phenot [phone] 2-8 Marker Path Interpret > 16 Marker TNP N Path Interpret 9-15 Marker (SEE NOTE) N 124 Herpes Simplex PCR 09/09/2015 [facility] Herpes Source CSF N [phone] HSV 1 PCR Negative N Negative HSV 2 PCR Negative N Negative 125 CSF Cell Count 09/09/2015 [facility] Body Fluid Appearance Clear N [phone] Body Fluid Color Colorless N CSF Tube # 4 N Body Fluid Volume 0.5 mL N Body Fluid WBC 341 High 126 Body Fluid RBC 2 N Body Fluid Neutrophils 3 N Body Fluid Lymph 96 N Body Fluid Young 1 N Body Fluid Total Cells Counted 100 N Fluid Reviewed By MD (SEE NOTE) N 127 Laboratory test 09/09/2015 [facility] CSF Glucose 58 mg/dL N 40-70 128 finding [phone] CSF Total Protein 148 mg/dL High 15-45 129 CSF Culture & Gram Stain SEE RESULT BELOW 130 Leukemia/Lymphoma 09/09/2015 [facility] Path Interpretation TNP N Phenot [phone] 2-8 Marker Path Interpret > 16 Marker TNP N Path Interpret 9-15 Marker (SEE NOTE) N 131 Herpes Simplex PCR 09/09/2015 [facility] Herpes Source CSF N [phone] HSV 1 PCR Negative N Negative HSV 2 PCR Negative N Negative 132 Comp Metabolic 07/18/2015 [facility] Sodium 135 mmol/ L N 133-145 133 Panel [phone] Potassium 3.7 mmol/L N 3.5-5.0 Chloride 98 [...] 103.3 N >60 134 CBC Auto 07/18/2015 [facility] White Blood 11.9 10^3/ uL High 3.5-10.8 Diff [phone] Count Red Blood Count 5.17 10^6/uL N [...] Cells % 0.1 N Laboratory test 07/18/2015 [facility] C Reactive 8.22 mg/L High < 5.00 135 finding [phone] Protein Erythrocyte Sed Rate 25 mm/Hr High 0-14 Rheumatoid Factor <15 IU/mL N <15 136 Cher (Antinuclear Antibodies) Negative N Negative TSH (Thyroid Stim Horm) 1.17 ?IU/mL N 0.34-5.60 Urine DIP 04/04/2015 In House Lab Specific Flushing 1.015 1.01-1.02 (607)- - Urine pH 5 5-6 Leukocytes neg Neg Urine Nitrites neg Neg Total Protein, Urine neg Neg Urine Glucose norm Norm Urine Ketones neg Neg Urobilinogen norm Norm Urine Bilirubin neg Neg Urine Blood neg Neg Comp Metabolic Panel 04/04/2015 [facility] Sodium 134 mmol/L N 133-145 [phone] Potassium 3.6 mmol/L N 3.5-5.0 Chloride 98 [...] 102.1 N >60 137 Laboratory test 04/04/2015 [facility] Hemoglobin A1c 5.7 % N Less than 138 finding [phone] ([facility]co [facility]) 6.0 1 REFERENCE VALUE Cutoff: 500 2 [...] REFERENCE VALUE Cutoff: 100 9 Lani Alexander, Contin; Also a minor metabolite (10%) of codeine and can be seen in low concentrations (<2,000 ng/mL) with poppy seed ingestion. 10 Metabolite of morphine REFERENCE VALUE Cutoff: 100 11 Metabolite of heroin 12 Lortab, [place], Vicodin; Also a very minor metabolite of [...] presence of both morphine and its metabolite (pcflwtqd-6-oykn-glucuronide). Suspect use of morphine within the past [...] developed and its performance characteristics determined by [facility] in a manner consistent with CLIA requirements. This test has not been cleared or approved by the U.S. Food and Drug Administration. Test Performed by: [facility] [address] [place] [address] 41 Because ethnic data is not always readily [...] 15-29 5 Kidney failure <15 (or dialysis) 42 Please check labs 2 days before follow up 43 Test Performed by: [facility] [address] [place] [id number] Forrest Angela M.D. Director of Laboratory 44 Because ethnic data is not always [...] 5 Kidney failure <15 (or dialysis) 45 Because ethnic data is not always readily [...] 15-29 5 Kidney failure <15 (or dialysis) 46 Please check labs 2 days before follow up 47 Please check labs 2 days before follow up 48 Please check labs 2 days before follow up 49 Therapeutic target for the treatment of diabetes mellitus patients is <7% HBA1C, and in selective patients <6.0%. Please refer to [place] [employer] diabetic care guidelines for further information. 50 Desirable: <150 Borderline High: 150-199 High: 200-499 Very High: >500 51 Desirable: <200 Borderline High: 200-239 High: >239 52 Low: <40 Desirable: 40-60 High: >60 53 Desirable: <100 Near Optimal: 100-129 Borderline High: 130-159 High: 160-189 Very High: >189 54 Please check labs 2 days before follow up 55 Please check labs 2 days before follow up 56 Acute inflammation: >10.00 57 Because ethnic data is not always readily [...] 15-29 5 Kidney failure <15 (or dialysis) 58 [employer]: [id number] 59 Unable to calculate due to low microalbumin 60 SEE RESULT BELOW Name: PATO BERRY : [address]: Larry Mcclain MD Acct: [id number] Unit: [id number] AGE: 52 Location: OR Re10/18/17 SEX: M Status: [facility] [place] SPEC: [id number] HUGO: 10/18/17- [facility] DR: Larry Mcclain MD REQ: [id number] RECD: 10/18/172 STATUS: VI TAVARES DR: Enrique Shrestha MD [...] Signed (signature on file) Forrest Angela MD [address] END OF REPORT DEPARTMENT OF PATHOLOGY, [address] [place] [address] Forrest Angela M.D. Director [facility] # [id number] 61 [employer]: [id number] REFERENCE VALUE <0.1 (Negative) Test Performed by: [address] [id number] 97 A negative serum IgA endomysial antibody is [...] as indicated by the Celiac Disease Comprehensive [place] ([place] Test [facility] Code CDCOM). In addition serum IgA endomysial antibody may also be negative in gluten-sensitive patients (with celiac disease, dermatitis herpetiformis or other gluten-sensitive disorders), who adhere to a strict gluten-free diet. ADDITIONAL INFORMATION This test has been modified from the electric container tester's instructions. Its performance characteristics were determined by [facility] in a manner consistent with CLIA requirements. This test has not been cleared or approved by the U.S. Food and Drug Administration. Test Performed by: [facility] [address] [facility] [facility] [place] [address] 64 REFERENCE VALUE 19.0 - 31.0 Test Performed by: [address] [place] [address] 65 Test Performed by: [address] [place] [address] 66 REFERENCE VALUE <=1.0 (Negative) Test Performed by: [address] [place] [address] 67 REFERENCE VALUE <20.0 (Negative) Test Performed by: [address] [place] [address] 68 REFERENCE VALUE <20.0 (Negative) 69 REFERENCE VALUE <4.0 (Negative) 70 REFERENCE VALUE <6.0 (Negative) Test Performed by: [address] [place] [address] 71 [id number] Acute inflammation: >10.00 73 SEE RESULT BELOW Name: PATO BERRY : [address]: Patrizia Centeno MD Acct: [id number] Unit: [id number] AGE: 51 Location: ED Re07/20/17 SEX: M Status: REG ER SPEC: [id number] HUGO: 07/21/17-[address] [facility] [address]: Drake Alejandra MD REQ: [id number] RECD: 07/21/17125 STATUS: HERBIE TAVARES DR: Enrique Centeno MD _ SOURCE: STOOL SPDESC: ORDERED: Occult Bl, Scn Procedure Result Reported Site Stool Occult Blood (1) Final 07/21/17- 1302 ML Stool Occult Blood Negative * ML - MAIN LAB ([facility]1) . END OF REPORT * ML=Testing performed at Main Lab DEPARTMENT OF PATHOLOGY, [address] [place] [address] Forrest Angela M.D. Director [facility] # [id number] 74 Comment: add on SST SENT 75 Comment: add on SST SENT 76 [employer]: [id number] 77 SEE RESULT BELOW Name: PATO BERRY : [address]: Melody Andino DO Acct: [id number] Unit: [id number] AGE: 51 Location: [place] [id number] Re07/21/17 SEX: M Status: ADM Aicha SPEC: [id number] HUGO: 07/21/17-[address]: Deloris DAVIES REQ: [id number] RECD: 07/21/176 STATUS: HERBIE TAVARES DR: Enrique Pelayo MD _ SOURCE: [facility]: ORDERED: Urine Culture Procedure Result Reported Site Urine Culture Final 07/22/17836 ML No growth of clinically significant organisms * ML - MAIN LAB ([facility]) . END OF REPORT * ML=Testing performed at Main Lab DEPARTMENT OF PATHOLOGY, [address] [place] [address] Forrest Angela M.D. Director [facility] # [id number] [facility] Severe Sepsis and Septic Shock Management Bundle [...] (or dialysis) 80 Acute inflammation: >10.00 81 [id number] 82 Therapeutic target for the treatment of diabetes mellitus patients is <7% HBA1C, and in selective patients <6.0%. Please refer to [place] [employer] diabetic care guidelines for further [...] 5 Kidney failure <15 (or dialysis) 84 Please check labs in 3 to 4 weeks 85 Acute inflammation: >10.00 86 Because ethnic data is not always [...] (or dialysis) 87 Acute inflammation: >10.00 88 [employer]: [id number] 89 [employer]: [id number] 90 Because ethnic data is not always [...] <15 (or dialysis) 91 Test Performed by: [address] [address] 92 [id number] 93 Therapeutic target for the treatment of diabetes Mellitus patients is <7% HBA1C, and in selective patients <6.0%.Please refer to [place] [employer] Diabetic care guidelines for further information. 94 [id number] 95 Unable to calculate due to low microalbumin 96 [id number] 97 Acute inflammation: >10.00 98 Desirable <150 [...] and in selective patients <6.0%.Please refer to [place] [employer] Diabetic care guidelines for further information. 104 SEE RESULT BELOW Name: PATO BERRY : [address]: Larry Mcclain MD Acct: [id number] Unit: [id number] AGE: 50 Location: ENDO Re04/30/16 SEX: M Status: REG REF SPEC: [id number] HUGO: 04/30/161142 [facility] DR: Larry Mcclain MD REQ: [id number] RECD: 04/30/161106 STATUS: VI TAVARES DR: Enrique Shrestha MD [...] performed at Main Lab DEPARTMENT OF PATHOLOGY, [address] [place] [address] Forrest Angela M.D. Director [facility] # [id number] 105 Desirable <150 Borderline high 150-199 High [...] and in selective patients <6.0%.Please refer to [place] [employer] Diabetic care guidelines for further [...] protein on serum electrophoresis. Test Performed by: [facility] [place] [address] Recording Artist: Elijah Mayberry II, M.D., Ph.D. 113 ADDITIONAL INFORMATION Testing performed by Inductively Coupled Plasma-Mass Spectrometry (ICP-MS). This test was developed and its performance characteristics determined by [facility] in a manner consistent with CLIA requirements. This test has not been cleared or approved by the U.S. Food and Drug Administration. 114 Test Performed by: [place] [address] Recording Artist: Elijah Mayberry II, M.D., Ph.D. 115 REFERENCE VALUE <=1.0 (Negative) 116 REFERENCE VALUE <20.0 (Negative) 117 Tests for antibodies to dsDNA and NUBIA antigens are not performed automatically unless the CHER result is > or= 3.0 U. Studies performed at [facility] indicate that positive CHER results <3.0 U are rarely accompanied by positive second order tests. Test Performed by: [address] [address] Recording Artist: Elijah Mayberry II, M.D., Ph.D. 118 Comment: Tube 4 119 Comment: Tube 2 120 Comment: Tube 2 121 Verbal to [id number] by [id number] at 1540 on 09/09/15. Results read back accurately. 122 Profound lymphocytosis. Recommend correlation with viral serology studies. Specimen sent for flow cytometry. Reviewed by: Lakeisha Alvares MD 123 SEE RESULT BELOW Name: PATO BERRY : [address]: Kami Ferguson MD Acct: [id number] Unit: [id number] AGE: 49 Location: [place] [address] Re09/09/15 Dis: 09/12/15 SEX: M Status: DIS IN SPEC: [id number] HUGO: 09/09/15-[address] [place] [address] DR: Asa Li MD REQ: [id number] RECD: 09/09/15 STATUS: COMP ANUSHA DR: Enrique Shrestha MD _ SOURCE: CSF SPDESC: ORDERED: CSF Cult/GS COMMENTS: Comment: Tube 3 Procedure Result Reported Site CSF Gram Stain Final 09/09/15- 1548 ML 4+ Nucleated Cells No Polys Observed No Organisms Seen Preparation By Cytospin Smear CSF Culture Final 09/13/15- 0908 ML No Growth Day 4 * ML - MAIN LAB ([facility]) . END OF REPORT * ML=Testing performed at Main Lab DEPARTMENT OF PATHOLOGY, [address] [place] [address] Forrest Angela M.D. Director [facility] # [id number] 124 FINAL DIAGNOSIS: Specimen Source: Cerebrospinal fluid [...] Lakeisha Alvares MD Technical component performed by: [facility] [place] [address] Recording Artist: Elijah Mayberry II, MD, PhD. 125 ADDITIONAL INFORMATION Analyte Specific Reagent: This test was developed and its performance characteristics determined by [facility]. It has not been cleared or approved by the U.S. Food and Drug Administration. Test Performed by: [facility] [place] [address] Recording Artist: Elijah Mayberry II, M.D., Ph.D. 126 Verbal to [id number] by [id number] at 1540 on 09/09/15. Results read back accurately. 127 Profound lymphocytosis. Recommend correlation with viral serology studies. Specimen sent for flow cytometry. Reviewed by: Lakeisha Alvares MD 128 Comment: Tube 2 129 Comment: Tube 2 130 SEE RESULT BELOW Name: PATO BERRY : [address]: Kami Ferguson MD Acct: [id number] Unit: [id number] AGE: 49 Location: [place] [address] Re09/09/15 SEX: M Status: ADM IN SPEC: [id number] HUGO: 09/09/[address] [facility] [address]: Asa Li MD REQ: [id number] RECD: 09/09/15 STATUS: RES OTHR DR: Enrique Shrestha MD _ SOURCE: CSF SPDESC: ORDERED: CSF Cult/GS COMMENTS: Comment: Tube 3 Procedure Result Reported Site CSF Gram Stain Final 09/09/15- 1547 ML 4+ Nucleated Cells No Polys Observed No Organisms Seen Preparation By Cytospin Smear CSF Culture Preliminary 09/12/15900 ML No Growth Day 3 * ML - MAIN LAB ([facility]) . END OF REPORT * ML=Testing performed at [facility] DEPARTMENT OF PATHOLOGY, [address] [place] [address] Forrest Angela M.D. Director [facility] # [id number] 131 FINAL DIAGNOSIS: Specimen Source: Cerebrospinal fluid [...] Lakeisha Alvares MD Technical component performed by: [facility] [place] [address] Recording Artist: Elijah Mayberry II, MD, PhD. 132 ADDITIONAL INFORMATION Analyte Specific Reagent: This test was developed and its performance characteristics determined by [facility]. It has not been cleared or approved by the U.S. Food and Drug Administration. Test Performed by: [place] [address] Recording Artist: Elijah Mayberry II, M.D., Ph.D. 133 D/w [...] Acute inflammation: >10.00 136 Test Performed by: [address] [address] Recording Artist: Elijah Mayberry II, M.D., Ph.D. 137 Because [...] and in selective patients <6.0%.Please refer to [place] [employer] Diabetic care guidelines for further information. Procedures Date Code Description Status 06/13/2018 82343 Therapeutic,Prophylactic,Or Diagnostic Inj,SC/Im Specify Completed Drug 05/30/2016 67185 EKG, at Least 12 Leads w/Interpretation and Report Completed 09/08/2015 59244 Therapeutic,Prophylactic,Or Diagnostic Inj,SC/Im Specify Completed Drug Encounters Type Date Location Provider Dx Diagnosis Office Visit 12/01/2018 Main Office Enrique Shrestha I50.30 Unspecified diastolic 4:45p (congestive) heart failure E11.65 Type 2 diabetes [...] Office Visit 10/23/2017 3:00p Main Office Enrique Shrestha, I10 Essential MD (primary) hypertension E11.65 Type 2 diabetes mellitus with hyperglycemia G47.00 Insomnia, unspecified Office Visit 10/03/2017 1:45p Main Office Enrique Shrestha, Z00.8 Encounter for MD other general examination Office Visit 07/26/2017 9:00a Main Office Enrique Shrestha, R10.9 Unspecified MD abdominal pain K74.60 Unspecified cirrhosis of liver Office Visit 07/17/2017 10:45a Main Office Enrique Shrestha, R10.9 Unspecified MD abdominal pain E11.65 Type 2 diabetes mellitus with hyperglycemia Office Visit 04/17/2017 5:00p Main Office Enrique Shrestha MD L60.0 Ingrowing nail J44.9 Chronic obstructive pulmonary disease, unspecified Office Visit 12/24/2016 11:15a Main Office Enrique Shrestha E11.65 Type 2 diabetes mellitus with hyperglycemia M54.2 Cervicalgia K30 Functional dyspepsia Z23 Encounter for immunization Office Visit 11/08/2016 9:15a Main Office Enrique Shrestha E11.65 Type 2 diabetes mellitus with hyperglycemia K40.90 Unil inguinal hernia, [...] 11:30a Main Office Enrique Shrestha, R06.00 Dyspnea, unspecified Office Visit 06/22/2016 11:30a Main Office Enrique Shrestha, I10 Essential (primary) MD hypertension 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 Office Visit 05/30/2016 9:45a Main Office Enrique Shrestha J44.9 Chronic MD obstructive pulmonary disease, unspecified K13.79 Other lesions of oral mucosa Office Visit 04/24/2016 3:00p Main Office Krish Reyes M54.9 Dorsalgia, III, [place]-[facility] unspecified Office Visit 04/04/2016 3:30p Main Office Enrique K40.90 Unil inguinal MD Henri[place] hernia, w/o obst or gangr, not spcf as recur G62.9 Polyneuropathy, unspecified I10 Essential (primary) hypertension Office Visit 02/20/2016 9:30a Main Office Enrique Shrestha, K40.90 Unil inguinal hernia, w/o obst or [...] Office Visit 09/08/2015 3:00p Main Office Enrique Shrestha, J01.90 Acute sinusitis, unspecified Office Visit 08/29/2015 [...] region Office Visit 06/02/2015 9:45a Main Office Enrique Shrestha M54.5 Low back pain T14.8 Other injury of [...] Visit 04/04/2015 9:00a Main Office Enrique Shrestha R06.02 Shortness of MD breath I10 Essential (primary) hypertension B35.3 Tinea pedis Z72.0 Tobacco use Plan of Treatment Future Appointment(s):12/26/2018 11:00 am - Enrique Shrestha MD at Main [id number]/11/2018 - Enrique Shrestha MDI50.30 Unspecified diastolic (congestive ) heart failureNew Medication:Lasix 40 mg - 1 by mouth every dayNew Xrays:Chest PA 2 Views, Ordered: 12/11/18Comments:Not responding well to increase in dilt and lasix. Will increase the dosage of both- lasix to 40 mg and dilt to 120. Also referred to cardiology.Follow up:Refer to cardiology 2 weeksRecommendations:Increase dilitiazem to 120 Increase lasix to 40 mg QAM
--- OUTSIDE RECORDS SUMMARY | 2018-12-28 14:35 | XMS REPORT | Continuity of Care Document ---
:1965 External Reference #:[id number] Author Name Enrique Shrestha MD Address [address] [place] [id number] Care Team Providers Name Role Phone Enrique Shrestha MD Care Team Information Network Development Coordinator Unavailable Payers Date Identification Numbers Payment Provider Subscriber Effective: 2018 Policy Number: [id number] Medicare - Bswny Umd Pato Shah Berry PayID: [id number] [address] [place] [address] Policy Number: [id number] Medicaid After Medicare Pato Berry Group Name: 2 1 [address] PayID: [id number] [place] [address] Expires: 2018 Policy Number: [id number] [facility] Pato Berry PayID: [id number] [address] [place] [address] Problems Active Problems Provider Date Essential hypertension [...] Ordering Date Provider Diltiazem HCL ER 1 tabs every 12 60caps I10 Enrique 12/01/2018 90mg hours for blood MD Henrietta Caps ER 12HR pressure Lasix 1 by mouth every 5tabs Enrique 12/01/2018 20mg Tablets day MD Henrietta Hearing Evaluation Enrique 09/08/2018 MD Henrietta [facility] Fiber Laxative Take 1 Tablet By 90tabs Enrique 08/07/2018 Mouth 4 Times Per MD Henrietta 625mg Tablets Day as Needed For Constipation Bisacodyl Ec 1 tab by mouth as 30tabs K59.00 Enrique 12/23/2017 5mg needed for MD Henrietta Tablets DR constipation Melatonin 2 tab by mouth 60caps G47.00 Enrique 10/23/2017 1mg every night as MD Henrietta Capsules needed Magnesium 1 tab by mouth 30tabs G47.00 Enrique 10/23/2017 250mg every day at MD Henrietta Tablets bedtime Lisinopril Take 1 Tablet By 60tabs I10 Enrique 10/23/2017 20mg Mouth Every Day MD Henrietta Tablets Lancets 30G use to check sugars 100units [...] Spacer, Pediatric R06.02 Enrique 04/04/2015 MD Henrietta Enbrel S22.32xA Unknown Clobetasol apply 1-2 times 120gm [...] 15mg twice a day Tablets History Medications Ketorolac by mouth every 6 20tabs Enrique 06/13/2018 - Tromethamine hours as needed. MD Henrietta 12/01/2018 10mg Do not use Tablets meloxicam while on this medication. Fibercon take 1 tablet by 90tabs K59.00 Enrique 12/23/2017 - 625mg Tablets mouth 4 times per MD eHnrietta 12/23/2017 day as needed for constipation Diltiazem HCL Take 1 Tablet By 60tabs I10 Enrique 11/04/2017 - 60mg Mouth Twice A Day MD Henrietta 12/01/2018 Tablets Miralax 1 capful in 8 oz 510units R10.9 Enrique 07/17/2017 - 3350NF Powder of water, up to 8 MD Henrietta 10/23/2017 doses in an afternoon. Breo Ellipta 1 puff by mouth 2 60units J44.9 Ernique 04/23/2017 - times a daily for MD [...] 1 puff twice a day 2units J44.9 Moody R. 09/16/2015 - 40mcg/Act Aerosol Storm, [employer] 06/22/2016 Amoxicillin take 1 capsule by 30caps [...] Per 15 MG (Toradol) Injection Injection Ketorolac Suzanna Shrestha MD 09/08/2015 Per 15 MG (Toradol) Injection Immunizations CPT Code Status Date Vaccine Lot # [id number] Given 12/24/2016 Hep B Vaccine Adult, 3 Dose age >20 yrs [id number] Given 11/08/2016 Pneumovax 23 (PPSV23) 65+ years or high risk 2 to [id number] 64 year old [id number] Refused 06/13/2018 Influenza Virus Vaccine, Quadrivalent, 3 Yr > Quad , Preserv Free [id number] Refused 12/23/2017 Influenza Virus Vaccine, Quadrivalent, 3 Yr > Quad , Preserv Free [id number] Refused 10/04/2016 Influenza Virus Vaccine, 3 Yrs And Above Vital Signs Date Vital Result Comment 12/01/2018 4:34pm Weight 296.00 lb Weight 134.266 [...] Result H/L Range Note Drug Abuse 11/04/2018 [facility] Urine Amphetamine Negative ng/mL 1 20 Urine [phone] Urine Barbiturates Negative ng/mL 2 Urine Benzodiazepines Negative ng/mL 3 Urine Cocaine Negative ng/mL 4 Urine Phencyclidine Negative ng/mL Cutoff: 25 Urine Tetrahydrocannabinol Negative ng/mL Cutoff: 50 5 Creatinine, Urine 46.8 mg/dL Specific Terrell 1.008 pH 7.4 Oxidants Negative 6 Adulterants Comment Normal Codeine, Ur Not Detected ng/mL Cutoff: 25 7 Boptbqo-2-tvsb-glucuronide, Ur Not Detected ng/mL 8 Morphine, Ur Present ng/mL Abnormal Cutoff: 25 9 Gtbnbdji-4-tgcc-glucuronide, U Present ng/mL Abnormal 10 6-monoacetylmorphine, Ur Not Detected ng/mL Cutoff: 25 11 Hydrocodone, Ur Not Detected ng/mL Cutoff: 25 12 Norhydrocodone, Ur Not Detected ng/mL Cutoff: 25 13 Dihydrocodeine, Ur Not Detected ng/mL Cutoff: 25 14 Hydromorphone, Ur Not Detected ng/mL Cutoff: 25 15 Xgfhdtvkyjzer8uphqbjxvdhflnzh Not Detected ng/mL 16 Oxycodone, Ur Present ng/mL Abnormal Cutoff: 25 17 Noroxycodone, Ur Present ng/mL Abnormal Cutoff: 25 18 Oxymorphone, Ur Not Detected ng/mL Cutoff: 25 19 Huzziyhgdes-4-ngxv-glucuronide Not Detected ng/mL 20 Noroxymorphone, Ur Not Detected ng/mL Cutoff: 25 21 Fentanyl, Ur Not Detected ng/mL Cutoff: 2 22 Norfentanyl, Ur Not Detected ng/mL Cutoff: 2 23 Meperidine, Ur Not Detected ng/mL Cutoff: 25 24 Normeperidine, Ur Not Detected ng/mL Cutoff: 25 25 Naloxone, Ur Not Detected ng/mL Cutoff: 25 26 Caxqvrnx-9-pgal-glucuronide, U Not Detected ng/mL 27 Methadone, Ur [...] Ur Not Detected ng/mL Cutoff: 50 35 Jrhbwwluzu-bymb-ikskpjesyah, U Not Detected ng/mL 36 Buprenorphine, Ur Not Detected ng/mL Cutoff: 5 37 Norbuprenorphine, Ur Not Detected ng/mL Cutoff: 5 38 Norbuprenorphine glucuronide Not Detected ng/mL Cutoff: 20 39 Opioid Interpretation See Comment 40 Comp Metabolic Panel 10/17/2018 [facility] Sodium 136 mmol/L N 135-145 [phone] Potassium 4.1 mmol/L N 3.5-5.0 Chloride 102 [...] Egfr 127.9 >60 41 Laboratory test 10/17/2018 [facility] C Reactive 2.94 mg/L N <8.01 42 finding [phone] Protein CBC Auto Diff 10/17/2018 [facility] White Blood 8.4 N 3.5-10.8 [phone] Count 10^3/uL Red Blood Count 4.56 10^6/uL [...] Blood Cells % 0 Laboratory test 10/17/2018 [facility] Erythrocyte Sed 15 mm/Hr N 0-20 43 finding [phone] Rate Laboratory test 07/25/2018 In House Lab Hemoglobin A1c 6.3 finding [phone] Poct Comp Metabolic 07/16/2018 [facility] Sodium 137 mmol/ L N 135-145 Panel [phone] Potassium 4.0 mmol/L N 3.5-5.0 Chloride 103 [...] Egfr 94.9 >60 44 Laboratory test 07/16/2018 [facility] C Reactive 2.62 mg/L N <8.01 finding [phone] Protein CBC Auto Diff 07/16/2018 [facility] White Blood 9.3 N 3.5-10.8 [phone] Count 10^3/uL Red Blood Count 4.60 10^6/uL [...] Blood Cells % 0 Laboratory test 07/16/2018 [facility] Erythrocyte Sed 19 mm/Hr N 0-20 finding [phone] Rate Comp Metabolic 03/24/2018 [facility] Sodium 134 mmol/ L Low 135-145 Panel [phone] Potassium 4.1 mmol/L N 3.5-5.0 Chloride 99 [...] Egfr 111.5 >60 45 Laboratory test 03/24/2018 [facility] Erythrocyte Sed 26 mm/Hr High 0-20 46 finding [phone] Rate Laboratory test 03/24/2018 [facility] C Reactive 6.88 mg/L N <8.01 47 finding [phone] Protein CBC Auto Diff 03/24/2018 [facility] White Blood 7.6 N 3.5-10.8 [phone] Count 10^3/uL Red Blood Count 4.12 10^6/uL [...] Blood Cells % 0.1 Laboratory test 12/23/2017 [facility] Erythrocyte Sed 30 mm/Hr High 0-20 48 finding [phone] Rate CBC Auto Diff 12/23/2017 [facility] White Blood 8.3 N 3.5-10.8 [phone] Count 10^3/uL Red Blood Count 4.35 10^6/uL [...] Blood Cells % 0 Laboratory test 12/23/2017 [facility] Hemoglobin A1c 6.9 % High 4.0-5.6 49 finding [phone] Lipid Profile 12/23/2017 [facility] Triglycerides 199 50 (Trig/Chol/HDL) [phone] mg/dL Cholesterol 189 mg/dL 51 HDL Cholesterol 43.8 mg/dL 52 LDL Cholesterol 105 mg/dL 53 Laboratory test 12/23/2017 [facility] Magnesium 2.0 mg/dL N 1.9-2.7 54 finding [phone] Creatine Kinase 68 U/L N 10-223 55 C Reactive Protein 5.09 mg/L High < 5.00 56 Comp Metabolic 12/23/2017 [facility] Sodium 135 mmol/ L Low 139-145 Panel [phone] Potassium 4.2 mmol/L N 3.5-5.0 Chloride 99 [...] Egfr 126.9 >60 57 Laboratory test 11/26/2017 [facility] Point of Care 137 mg/dL High 70-100 58 finding [phone] Glucose Urine 10/23/2017 [facility] Ur Microalbumin < 15.0 Microalbumin [phone] (mg/L) mg/L Random Urine Creatinine 186.23 mg/dL Urine Microalbumin/Creatinine TNP ug/mg <31 59 Laboratory test 10/18/2017 [facility] Surgical SEE RESULT 60 finding [phone] Interface BELOW Order Laboratory test 10/18/2017 [facility] Point of Care 139 mg/dL High 70-10 61 finding [phone] Glucose 0 Platelet Count 08/14/2017 [facility] Platelet Count 123 10^3/uL Low 150-4 [phone] 50 Mean Platelet Volume 7 um3 Low 7.4-10.4 Inr/Protime 08/14/2017 [facility] Inr 0.98 N 0.77- 1.02 [phone] Laboratory test 08/14/2017 [facility] Partial 37.8 High 26.0-36.3 finding [phone] Thrombo seconds Time PTT CBC No Diff 08/12/2017 [facility] White Blood 6.9 10^ 3/uL N 3.5-10.8 [phone] Count Red Blood Count 4.28 10^6/uL N [...] 8 um3 N 7.4-10.4 Laboratory test 08/12/2017 [facility] Inr/Protime 0.99 N 0.77-1.02 finding [phone] Anti Gliadin Igg 08/02/2017 [facility] Gliadin IgG < 10.0 U 62 And Iga AB [phone] Gliadin IgA <10.0 U 63 CBC Auto Diff 08/02/2017 [facility] White Blood 9.4 10^3/uL N 3.5-10.8 [phone] Count Red Blood Count 4.67 10^6/uL N [...] Red Blood Cells % 0 Laboratory test 08/02/2017 [facility] Ceruloplasmin 24.6 mg/dL 64 finding [phone] Alpha 1 Antitrypsin A1a 138 mg/dL 100 - 190 65 Anti Nuclear Antibody 0.2 U 66 Inr/Protime 08/02/2017 [facility] Inr 0.98 N 0.77- 1.02 [phone] Laboratory test 08/02/2017 [facility] Mitochondria M2 <0.1 U 67 finding [phone] Antibody Anti Endomysial Antibody Negative Negative 68 Transglutaminase Igg 08/02/2017 [facility] Tissue < 1.2 69 & Iga [phone] Transglutaminase IgA U/mL Ab Tissue Transglutaminase IgG Ab <1.2 U/mL 70 Hepatitis 07/26/2017 [facility] Hepatitis B Nonreactive Nonreactive 71 Acute Panel [phone] Surface Antigen Hepatitis B Core IgM Nonreactive Nonreactive Hepatitis A AB IgM Nonreactive Nonreactive Hepatitis C Antibody Nonreactive Nonreactive Bilrubin And 07/26/2017 [facility] Total Bilirubin 0.50 mg/dL N 0.2-1.0 Indirect [phone] Direct Bilirubin 0.10 mg/dL N 0.03-0.18 Indirect Bilirubin 0.4 mg/dL N 0.3-1.0 Laboratory test 07/26/2017 [facility] C Reactive 7.73 mg/L High < 5.00 72 finding [phone] Protein Inr/Protime 07/26/2017 [facility] Inr 0.96 N 0.77- 1.0 [phone] Laboratory test 07/21/2017 [facility] Stool Occult SEE RESULT 73 finding [phone] Blood, BELOW Screen Laboratory test 07/21/2017 [facility] Lipase 40 U/L N 11.0-82. 74, 75 finding [phone] Laboratory test 07/21/2017 [facility] Point of 155 mg /dL High 70-100 76 finding [phone] Care Glucose Urinalysis 07/21/2017 [facility] Urine Color Pita Profile [phone] Urine Appearance Clear Urine Specific Terrell 1.029 N 1.010-1.030 Urine pH 5.0 N 5-9 Urine Urobilinogen Negative Negative Urine Ketones Negative Negative Urine Protein 1+(30 mg/dL) Abnormal Negative Urine Leukocytes Trace Abnormal Negative Urine Blood Negative Negative Urine Nitrite Negative Negative Urine Bilirubin Negative Negative Urine Glucose Negative Negative Urine White Blood Cell Trace(0-5/hpf) Absent Urine Red Blood Cell Trace(0-2/hpf) Absent Urine Bacteria Absent Absent Laboratory test 07/21/2017 [facility] Urine Culture SEE RESULT 77 finding [phone] BELOW Comp Metabolic 07/20/2017 [facility] Sodium 134 mmol/ L N 133-14 Panel [phone] Potassium 3.5 mmol/L N 3.5-5.0 Chloride [...] Egfr Non- 77.9 >60 Egfr 100.2 >60 78 Laboratory test 07/20/2017 [facility] Magnesium 2.2 mg/dL N 1.9-2.7 finding [phone] Lipase 190 U/L High 11.0-82.0 C Reactive Protein 37.05 mg/L High < 5.00 79 Amylase 54 U/L N 29-103 CBC Auto Diff 07/20/2017 [facility] White Blood 8.0 10^3/uL N 3.5-10.8 [phone] Count Red Blood Count 4.40 10^6/uL N [...] Nucleated Red Blood Cells % 0 Laboratory 07/20/2017 [facility] Lactic Acid 1.6 mmol /L N 0.5-2.0 80 test finding [phone] Laboratory 07/17/2017 [facility] Hemoglobin A1c 6.8 % High 4.0-5.6 81, test finding [phone] Comp Metabolic 07/12/2017 [facility] Sodium 134 mmol/ L N 133-145 Panel [phone] Potassium 3.3 mmol/L Low 3.5-5.0 Chloride 97 [...] Egfr 111.5 >60 83 Laboratory test 07/12/2017 [facility] C Reactive 11.35 mg/L High < 5.00 84 finding [phone] Protein CBC Auto Diff 07/12/2017 [facility] White Blood 10.1 N 3.5-10.8 [phone] Count 10^3/uL Red Blood Count 4.61 10^6/uL [...] Blood Cells % 0.1 Laboratory test 07/12/2017 [facility] Erythrocyte Sed 30 mm/Hr High 0-20 85 finding [phone] Rate Comp Metabolic 06/07/2017 [facility] Sodium 132 Low 133-145 Panel [phone] mmol/L Potassium 3.8 mmol/L N 3.5-5.0 Chloride [...] Egfr 119.0 >60 86 Laboratory test 06/07/2017 [facility] C Reactive 10.30 mg/L High < 5.00 87 finding [phone] Protein CBC Auto Diff 06/07/2017 [facility] White Blood 8.7 N 3.5-10.8 [phone] Count 10^3/uL Red Blood Count 4.56 10^6/uL [...] Blood Cells % 0.2 Laboratory test 06/07/2017 [facility] Erythrocyte Sed 38 mm/Hr High 0-20 finding [phone] Rate Laboratory test 01/28/2017 [facility] Point of Care 159 mg/dL High 74-106 88 finding [phone] Glucose Laboratory test 01/28/2017 [facility] Point of Care 115 mg/dL High 74-106 89 finding [phone] Glucose Basic Metabolic 01/18/2017 [facility] Sodium 136 N 133-145 Panel [phone] mmol/L Potassium 4.0 mmol/L N 3.5-5.0 Chloride [...] 110.2 N >60 90 Laboratory test 01/16/2017 [facility] [place] Pylori Negative N Negative 91 finding [phone] Antigen- Stool Laboratory test 12/24/2016 [facility] Hemoglobin 6.9 % High Less than 92, finding [phone] A1c 6.0 93 Urine 10/18/2016 [facility] Urine 115.10 N 94 Microalbumin [phone] Creatinine mg/dL Random Ur Microalbumin (mg/L) < 15.0 mg/L N Urine Microalbumin/Creatinine TNP ug/mg N <31 95 Laboratory test 10/04/2016 In House Lab Glucose By Moniter 181 High 78- 110 finding [phone] Laboratory test 10/04/2016 [facility] C Reactive Protein 10.55 High < 5.00 96, 97 finding [phone] Lipid Profile 10/04/2016 [facility] Triglycerides 166 N 98 (Trig/Chol/HDL) [phone] mg/dL Cholesterol 182 mg/dL N 99 HDL Cholesterol 35.4 mg/dL N 100 LDL Cholesterol 113 mg/dL N 101 CBC Auto Diff 10/04/2016 [facility] White Blood 8.3 10^3/uL N 3.5-10.8 [phone] Count Red Blood Count 5.01 10^6/uL N [...] % 0 N Comp Metabolic Panel 10/04/2016 [facility] Sodium 136 mmol/L N 133-145 [phone] Potassium 4.0 mmol/L N 3.5-5.0 Chloride 98 [...] 107.5 N >60 102 Laboratory test 10/04/2016 [facility] Hemoglobin A1c 8.6 % High Less 103 finding [phone] than 6.0 Laboratory test 04/30/2016 [facility] Surgical SEE RESULT 104 finding [phone] Interface BELOW Order Urine DIP 04/24/2016 In House Lab Leukocytes neg Neg [phone] - Urine Nitrites neg Neg Urobilinogen norm Norm Total Protein, Urine neg Neg Urine pH 5 5-6 Urine Blood neg Neg Specific Terrell 1.015 1.01-1.02 Urine Ketones neg Neg Urine Bilirubin neg Neg Urine Glucose norm Norm Lipid Profile 01/04/2016 [facility] Triglycerides 151 mg/dL N 105 (Trig/Chol/HDL) [phone] Cholesterol 174 mg/dL N 106 HDL Cholesterol 36.9 mg/dL N 107 LDL Cholesterol 107 mg/dL N 108 Laboratory test 01/04/2016 [facility] Hemoglobin A1c 6.2 % High Less 109 finding [phone] than 6.0 Comp Metabolic 01/04/2016 [facility] Sodium 136 N 133-145 Panel [phone] mmol/L Potassium 3.6 mmol/L N 3.5-5.0 Chloride [...] 101.7 N >60 110 Laboratory test 01/04/2016 [facility] Vitamin B12 329 pg/mL N 180-914 111 finding [phone] Folate 18.47 ng/mL N >3.99 Protein 01/04/2016 [facility] Total 7.1 g/dL N 6.3 - Electrophoresis [phone] Protein(Pep) 7.9 Albumin 3.4 g/dL N 3.4-4.7 Alpha-1 Globulin 0.2 g/dL N 0.1-0.3 Alpha-2 Globulin 1.3 g/dL Abnormal 0.6-1.0 Beta Globulin 1.0 g/dL N 0.7-1.2 Gamma Globulin 1.2 g/dL N 0.6-1.6 Albumin/Globulin Ratio 0.92 N Impression See Comment N 112 Lead 01/04/2016 [facility] Lead <1.0 g/dL N 0.0- 4.9 113 [phone] Arthritis Panel 01/04/2016 [facility] Uric Acid 6.8 mg/dL N 4.4-7.6 [phone] Erythrocyte Sed Rate 24 mm/Hr High 0-20 Rheumatoid Factor <15 IU/mL N <15 114 Anti-Nuclear Antibody 0.2 U N 115 Cyclic Citrullinated Peptide <15.6 U N 116 Interpretation See Comment N 117 Laboratory test 09/09/2015 [facility] CSF Glucose 58 mg/dL N 40-70 118, 119 finding [phone] CSF Total Protein 148 mg/dL High 15-45 120 CSF Cell Count 09/09/2015 [facility] Body Fluid Appearance Clear N [phone] Body Fluid Color Colorless N CSF Tube # 4 N Body Fluid Volume 0.5 mL N Body Fluid WBC 341 High 121 Body Fluid RBC 2 N Body Fluid Neutrophils 3 N Body Fluid Lymph 96 N Body Fluid Nelson 1 N Body Fluid Total Cells Counted 100 N Fluid Reviewed By MD (SEE NOTE) N 122 Laboratory test 09/09/2015 [facility] CSF Culture & Gram SEE RESULT 123 finding [phone] Stain BELOW Leukemia/Lymphom 09/09/2015 [facility] Path Interpretation TNP N a Phenot [phone] 2-8 Marker Path Interpret > 16 Marker TNP N Path Interpret 9-15 Marker (SEE NOTE) N 124 Herpes Simplex PCR 09/09/2015 [facility] Herpes Source CSF N [phone] HSV 1 PCR Negative N Negative HSV 2 PCR Negative N Negative 125 CSF Cell Count 09/09/2015 [facility] Body Fluid Appearance Clear N [phone] Body Fluid Color Colorless N CSF Tube # 4 N Body Fluid Volume 0.5 mL N Body Fluid WBC 341 High 126 Body Fluid RBC 2 N Body Fluid Neutrophils 3 N Body Fluid Lymph 96 N Body Fluid Nelson 1 N Body Fluid Total Cells Counted 100 N Fluid Reviewed By MD (SEE NOTE) N 127 Laboratory test 09/09/2015 [facility] CSF Glucose 58 mg/dL N 40-70 128 finding [phone] CSF Total Protein 148 mg/dL High 15-45 129 CSF Culture & Gram Stain SEE RESULT BELOW 130 Leukemia/Lymphoma 09/09/2015 [facility] Path Interpretation TNP N Phenot [phone] 2-8 Marker Path Interpret > 16 Marker TNP N Path Interpret 9-15 Marker (SEE NOTE) N 131 Herpes Simplex PCR 09/09/2015 [facility] Herpes Source CSF N [phone] HSV 1 PCR Negative N Negative HSV 2 PCR Negative N Negative 132 Comp Metabolic 07/18/2015 [facility] Sodium 135 mmol/ L N 133-145 133 Panel [phone] Potassium 3.7 mmol/L N 3.5-5.0 Chloride 98 [...] 103.3 N >60 134 CBC Auto 07/18/2015 [facility] White Blood 11.9 10^3/ uL High 3.5-10.8 Diff [phone] Count Red Blood Count 5.17 10^6/uL N [...] Cells % 0.1 N Laboratory test 07/18/2015 [facility] C Reactive 8.22 mg/L High < 5.00 135 finding [phone] Protein Erythrocyte Sed Rate 25 mm/Hr High 0-14 Rheumatoid Factor <15 IU/mL N <15 136 Cher (Antinuclear Antibodies) Negative N Negative TSH (Thyroid Stim Horm) 1.17 ?IU/mL N 0.34-5.60 Urine DIP 04/04/2015 In House Lab Specific Terrell 1.015 1.01-1.02 ([phone])- - Urine pH 5 5-6 Leukocytes neg Neg Urine Nitrites neg Neg Total Protein, Urine neg Neg Urine Glucose norm Norm Urine Ketones neg Neg Urobilinogen norm Norm Urine Bilirubin neg Neg Urine Blood neg Neg Comp Metabolic Panel 04/04/2015 [facility] Sodium 134 mmol/L N 133-145 [phone] Potassium 3.6 mmol/L N 3.5-5.0 Chloride 98 [...] 102.1 N >60 137 Laboratory test 04/04/2015 [facility] Hemoglobin A1c 5.7 % N Less than 138 finding [phone] (Glyco HGB) 6.0 1 REFERENCE VALUE Cutoff: [...] 100 11 Metabolite of heroin 12 Lortab, [place], Vicodin; Also a very minor metabolite of [...] presence of both morphine and its metabolite (yctunimo-5-wepr-glucuronide). Suspect use of morphine within the past [...] developed and its performance characteristics determined by [facility] in a manner consistent with CLIA requirements. This test has not been cleared or approved by the U.S. Food and Drug Administration. Test Performed by: [facility] [address] [place] [address] 91 Because ethnic data is not always readily [...] up 43 Test Performed by: [facility] [address] [place] [id number] Forrest Angela M.D. Director of Laboratory 44 [...] in selective patients <6.0%. Please refer to [place] [employer] diabetic care guidelines for further [...] 5 Kidney failure <15 (or dialysis) 58 Kettle Operator Head: [id number] Unable to calculate due to low microalbumin 60 SEE RESULT BELOW Name: PATO BERRY : [address]: Larry Mcclain MD Acct: [id number] Unit: [id number] AGE: 52 Location: OR Re10/18/17 SEX: M Status: [facility] SPEC: [id number] HUGO: 10/18/17- SUBM DR: Larry Mcclain MD REQ: [id number] RECD: 10/18/17 STATUS: VI TAVARES DR: Enrique Shrestha MD [...] 1151 END OF REPORT DEPARTMENT OF PATHOLOGY, [address] [place] [address] Forrest Angela M.D. Director [facility] # [id number] 61 Kettle Operator Head: [id number] 62 REFERENCE VALUE <20.0 (Negative) Test Performed by: [address] [address] 63 REFERENCE VALUE <20.0 (Negative) 64 REFERENCE VALUE 19.0 - 31.0 Test Performed by: [address] [id number] 65 Test Performed by: [facility] - [address] [address] 66 REFERENCE VALUE <=1.0 (Negative) Test Performed by: [address] [address] 67 REFERENCE VALUE <0.1 (Negative) Test Performed by: [address] [address] 68 A negative serum IgA endomysial antibody [...] as indicated by the Celiac Disease Comprehensive [place] ([place] Test Unit Code CDCOM). In addition serum IgA endomysial antibody may also be negative in gluten-sensitive patients (with celiac disease, dermatitis herpetiformis or other gluten-sensitive disorders), who adhere to a strict gluten-free diet. ADDITIONAL INFORMATION This test has been modified from the histotechnician's instructions. Its performance characteristics were determined by [facility] in a manner consistent with CLIA requirements. This test has not been cleared or approved by the U.S. Food and Drug Administration. Test Performed by: [facility] - [address] [address] 69 REFERENCE VALUE <4.0 (Negative) 70 REFERENCE VALUE <6.0 (Negative) Test Performed by: [facility] - [address] [address] 71 [id number] Acute inflammation: >10.00 73 SEE RESULT BELOW Name: PATO BERRY : [address]: Patrizia Centeno MD Acct: [id number] Unit: [id number] AGE: 51 Location: ED Re07/20/17 SEX: M Status: REG ER SPEC: [id number] HUGO: 07/21/17-[address]: Drake Alejandra MD REQ: [id number] RECD: 07/21/17-1255 STATUS: HERBIE TAVARES DR: Enrique Centeno MD _ SOURCE: STOOL SPDESC: ORDERED: Occult Bl, Scn Procedure Result Reported Site Stool Occult Blood (1) Final 07/21/17- 1302 ML Stool Occult Blood Negative * ML - MAIN LAB ([facility]) . END OF REPORT * ML=Testing performed at Main Lab DEPARTMENT OF PATHOLOGY, [address] [place] [address] Forrest Angela M.D. Director [facility] # [id number] 74 Comment: add on SST SENT 75 Comment: add on SST SENT 76 Kettle Operator Head: [id number] 77 SEE RESULT BELOW Name: FRANKIEPATO Shah : [address]: Melody Andino DO Acct: [id number] Unit: [id number] AGE: 51 Location: [place] [address]- Re07/21/17 SEX: M Status: ADM Aicha SPEC: [id number] HUGO: 07/21/[address]: Deloris DAVIES REQ: [id number] RECD: 07/21/17 STATUS: HERBIE TAVARES DR: Enrique Pelayo MD _ SOURCE: URINE SPDESC: ORDERED: Urine Culture Procedure Result Reported Site Urine Culture Final 07/22/17- 0837 ML No growth of clinically significant organisms * ML - MAIN LAB ([facility]) . END OF REPORT * ML=Testing performed at Main Lab DEPARTMENT OF PATHOLOGY, [address] [place] [address] Forrest Angela M.D. Director [facility] # [id number] 78 Because ethnic data is not always readily [...] 15-29 5 Kidney failure <15 (or dialysis) 79 Acute inflammation: >10.00 80 [facility] Severe Sepsis and Septic Shock Management Bundle Measure requires all lactic acids initially measuring >2.0 mmol/L be repeated. 81 [id number] 82 Therapeutic target for the treatment of diabetes mellitus patients is <7% HBA1C, and in selective patients <6.0%. Please refer to [place] [employer] diabetic care guidelines for further [...] (or dialysis) 87 Acute inflammation: >10.00 88 Kettle Operator Head: [id number] 89 Kettle Operator Head: [id number] 90 Because ethnic data is not always [...] <15 (or dialysis) 91 Test Performed by: [address] [address] 92 [id number] 93 Therapeutic target for the treatment of diabetes Mellitus patients is <7% HBA1C, and in selective patients <6.0%.Please refer to [place] [employer] Diabetic care guidelines for further information. 94 [id number] 95 Unable to calculate due to low microalbumin 96 [id number] 97 Acute inflammation: >10.00 98 Desirable <150 [...] and in selective patients <6.0%.Please refer to [place] [employer] Diabetic care guidelines for further information. 104 SEE RESULT BELOW Name: PATO BERRY : [address]: Larry Mcclain MD Acct: [id number] Unit: [id number] AGE: 50 Location: ENDO Re04/30/16 SEX: M Status: REG REF SPEC: [id number] HUGO: 04/30/[address] [facility] [address]: Larry Mcclain MD REQ: [id number] RECD: 04/30/16 STATUS: VI TAVARES DR: Enrique [...] performed at Main Lab DEPARTMENT OF PATHOLOGY, [address] [place] [address] Forrest Angela M.D. Director [facility] # [id number] 105 Desirable <150 Borderline high 150-199 High [...] and in selective patients <6.0%.Please refer to [place] [employer] Diabetic care guidelines for further [...] protein on serum electrophoresis. Test Performed by: [facility] [address] Gill Box Tender: Elijah Mayberry II, M.D., Ph.D. 113 ADDITIONAL INFORMATION Testing performed by Inductively Coupled Plasma-Mass Spectrometry (ICP-MS). This test was developed and its performance characteristics determined by [facility] in a manner consistent with CLIA requirements. This test has not been cleared or approved by the U.S. Food and Drug Administration. 114 Test Performed by: [facility] [place] [address] Gill Box Tender: Elijah Mayberry II, M.D., Ph.D. 115 REFERENCE VALUE <=1.0 (Negative) 116 REFERENCE VALUE <20.0 (Negative) 117 Tests for antibodies to dsDNA and NUBIA antigens are not performed automatically unless the CHER result is > or= 3.0 U. Studies performed at [facility] indicate that positive CHER results <3.0 U are rarely accompanied by positive second order tests. Test Performed by: [address] [address] Gill Box Tender: Elijah Mayberry II, M.D., Ph.D. 118 Comment: Tube 4 119 Comment: Tube 2 120 Comment: Tube 2 121 Verbal to [id number] by [id number] at 1540 on 09/09/15. Results read back accurately. 122 Profound lymphocytosis. Recommend correlation with viral serology studies. Specimen sent for flow cytometry. Reviewed by: Lakeisha Alvares MD 123 SEE RESULT BELOW Name: PATO BERRY : [address]: Kami Ferguson MD Acct: [id number] Unit: [id number] AGE: 49 Location: [address] Re09/09/15 Dis: 09/12/15 SEX: M Status: DIS IN SPEC: [id number] HUGO: 09/09/[address] [facility] [address]: Asa Li MD REQ: [id number] RECD: 09/09/15 STATUS: COMP ANUSHA DR: Enrique Shrestha MD _ SOURCE: CSF SPDESC: ORDERED: CSF Cult/GS COMMENTS: Comment: Tube 3 Procedure Result Reported Site CSF Gram Stain Final 09/09/15- 1548 ML 4+ Nucleated Cells No Polys Observed No Organisms Seen Preparation By Cytospin Smear CSF Culture Final 09/13/15- 0908 ML No Growth Day 4 * ML - MAIN LAB ([facility]) . END OF REPORT * ML=Testing performed at Main Lab DEPARTMENT OF PATHOLOGY, [address] [place] [address] Forrest Angela M.D. Director [facility] # [id number] 124 FINAL DIAGNOSIS: Specimen Source: Cerebrospinal fluid [...] Lakeisha Alvares MD Technical component performed by: [address] [address] Gill Box Tender: Elijah Mayberry II, MD, PhD. 125 ADDITIONAL INFORMATION Analyte Specific Reagent: This test was developed and its performance characteristics determined by [facility]. It has not been cleared or approved by the U.S. Food and Drug Administration. Test Performed by: [facility] - [address] [address] Gill Box Tender: Elijah Mayberry II, M.D., Ph.D. 126 Verbal to [id number] by [email or web address] at 1540 on 09/09/15. Results read back accurately. 127 Profound lymphocytosis. Recommend correlation with viral serology studies. Specimen sent for flow cytometry. Reviewed by: Lakeisha Alvares MD 128 Comment: Tube 2 129 Comment: Tube 2 130 SEE RESULT BELOW Name: PATO BERRY : [address]: Kami Ferguson MD Acct: [id number] Unit: [id number] AGE: 49 Location: [address] Re09/09/15 SEX: M Status: ADM IN SPEC: [id number] HUGO: 09/09/15-[address] [facility] [address]: Asa Li MD REQ: [id number] RECD: 09/09/15 STATUS: RES ANUSHA DR: Enrique Shrestha MD _ SOURCE: CSF SPDESC: ORDERED: CSF Cult/GS COMMENTS: Comment: Tube 3 Procedure Result Reported Site CSF Gram Stain Final 09/09/15- 1548 ML 4+ Nucleated Cells No Polys Observed No Organisms Seen Preparation By Cytospin Smear CSF Culture Preliminary 09/12/15- 01 ML No Growth Day 3 * ML - MAIN LAB ([facility]) . END OF REPORT * ML=Testing performed at Main Lab DEPARTMENT OF PATHOLOGY, [address] [place] [address] Forrest Angela M.D. Director [facility] # [id number] 131 FINAL DIAGNOSIS: Specimen Source: Cerebrospinal fluid [...] Lakeisha Alvares MD Technical component performed by: [place] [address] Gill Box Tender: Elijah Mayberry II, MD, PhD. 132 ADDITIONAL INFORMATION Analyte Specific Reagent: This test was developed and its performance characteristics determined by [facility]. It has not been cleared or approved by the U.S. Food and Drug Administration. Test Performed by: [place] [address] Gill Box Tender: Elijah Mayberry II, M.D., Ph.D. 133 D/w [...] Acute inflammation: >10.00 136 Test Performed by: [place] [address] Gill Box Tender: Elijah Mayberry II, M.D., Ph.D. 137 Because [...] and in selective patients <6.0%.Please refer to [place] [employer] Diabetic care guidelines for further information. Procedures Date Code Description Status 06/13/2018 98064 Therapeutic,Prophylactic,Or Diagnostic Inj,SC/Im Specify Completed Drug 05/30/2016 93375 EKG, at Least 12 Leads w/Interpretation and Report Completed 09/08/2015 01171 Therapeutic,Prophylactic,Or Diagnostic Inj,SC/Im Specify Completed Drug Encounters Type Date Location Provider Dx Diagnosis Office Visit 07/25/2018 Main Office Enrique Shrestha, E11.65 Type 2 diabetes 11:15a mellitus with hyperglycemia E66.8 Other obesity Office [...] 3:00p Main Office Enrique Shrestha I10 Essential (primary) hypertension E11.65 Type 2 diabetes mellitus with hyperglycemia G47.00 Insomnia, unspecified Office Visit 10/03/2017 1:45p Main Office Enrique Shrestha, Z00.8 Encounter for other general examination Office Visit 07/26/2017 9:00a Main Office Enrique Shrestha R10.9 Unspecified abdominal pain K74.60 Unspecified cirrhosis [...] (primary) hypertension 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 Office Visit 05/30/2016 9:45a Main Office Enrique Shrestha J44.9 Chronic MD obstructive pulmonary disease, unspecified K13.79 Other lesions of oral mucosa Office Visit 04/24/2016 3:00p Main Office Krish Reyes M54.9 Dorsalgia, III, [employer] unspecified Office Visit 04/04/2016 3:30p Main Office Enrique K40.90 Unil inguinal MD Henrietta hernia, w/o obst or gangr, not spcf as recur G62.9 Polyneuropathy, unspecified I10 Essential (primary) hypertension Office Visit 02/20/2016 9:30a Main Office Enriquemaryam Shrestha, K40.90 Unil inguinal MD hernia, w/o obst [...] unspecified Office Visit 08/29/2015 9:15a Main Office Enrique Shrestha M54.5 Low back pain K59.00 Constipation, unspecified Office Visit 08/12/2015 11:45a Main Office Enrique Shrestha MD M54.5 Low back pain J44.9 Chronic obstructive pulmonary disease, unspecified F17.213 Nicotine dependence, cigarettes, with withdrawal Office Visit 07/18/2015 9:45a Main Office Enrique Shrestha MD M54.5 Low back pain Z72.0 Tobacco use R63.5 Abnormal weight gain Office Visit 06/08/2015 9:15a Main Office Enrique Heetderks, T14.8 Other injury of MD unspecified body [...] pedis Z72.0 Tobacco use Plan of Treatment 12/01/2018 - Enrique Shrestha MDI50.30 Unspecified diastolic (congestive) heart failureComments:I will try increasing his diltiazem to slow down his heart rate. We will also use a low dose of Lasix to accelerate improvement.E11.65 Type 2 diabetes mellitus with hyperglycemia
--- NOTE | 2018-12-28 15:45 | ED ---
Respiratory - HPI Summary HPI Summary: This patient is a 53 year old M presenting to ED with a chief complaint of constant SOB since two weeks ago. The SOB is worse when he lies down. Patient has COPD and CHF. He saw his PCP on 12/26/18 and they increased his Lasix to 60mg , but it did not help. He states his legs have gotten more swollen since then. The patient rates the pain 5/10 in severity. Symptoms aggravated by lying down. Symptoms alleviated by nothing. Patient reports leg aching, gain in weight (6 pounds since last week). Patient denies change in urination. PMHx of DM, COPD, HTN, CHF. PSHx of hernia repair, appendectomy, cardiac cath, right wrist cyst removal, left inguinal hernia repair. FHx of cardiac disease. Patient does not drink alcohol, use substances, and is a former smoker. - History of Current Complaint Chief Complaint: EDShortnessOfBreath Stated Complaint: DIFF BREATHING PER PT Time Seen by Provider: 12/28/18 15:34 Hx Obtained From: Patient Onset/Duration: Lasting Weeks - 2 weeks, Still Present Timing: Constant Initial Severity: Moderate Current Severity: Moderate Pain Intensity: 5 Sputum Amount: None Aggravating Factor(s): Recumbent Position Alleviating Factor(s): Nothing Associated Signs and Symptoms: SOB, Calf Pain/Swelling - Allergy/Home Medications Allergies/Adverse Reactions: Allergies Allergy/AdvReac Type Severity Reaction Status Date / Time No Known Allergies Allergy Verified 12/28/18 14:24 PMH/Surg Hx/FS Hx/Imm Hx Previously Healthy: No Endocrine/Hematology History: Reports: Hx Diabetes - type 2 Denies: Hx Bone Marrow Disease, Hx Sickle Cell Disease, Hx Anemia Cardiovascular History: Reports: Hx Angina, Hx Congestive Heart Failure, Hx Hypertension, Other Cardiovascular Problems/Disorders - 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 Denies: Hx Coronary Artery Disease, Hx Hypercholesterolemia, Hx Myocardial Infarction, Hx Pacemaker/ICD, Hx Valvular Heart Disease Respiratory History: Reports: Hx Asthma - uses prn inhaler, Hx Chronic Bronchitis, Hx Chronic Obstructive Pulmonary Disease (COPD), Hx Pneumonia, Hx Sleep Apnea Denies: Other Respiratory Problems/Disorders GI History: Reports: Hx Cirrhosis - liver biopsy 07/2017, Hx Gastroesophageal Reflux Disease, Hx Hiatal Hernia, Hx Jaundice - as a child, Hx Ulcer - resolved , Other GI Disorders - Hx of colon polyps History: Denies: Hx Renal Disease Musculoskeletal History: Reports: Hx Arthritis - inflammatory arthritis, Hx Back Problems, Hx Tendonitis - wrists, elbows, Other Musculoskeletal History - DJD, BONE SPURS ON SPINE Denies: Hx Bursitis Sensory History: Reports: Hx Cataracts - very small, Hx Contacts or Glasses - wears glasses, Hx Hearing Aid - hearing aids not with pt at this time- left ear , Hx Hearing Problem Denies: Hx Glaucoma, Hx Deafness Opthamlomology History: Reports: Hx Cataracts - very small, Hx Contacts or Glasses - wears glasses Denies: Hx Glaucoma Neurological History: Reports: Hx Migraine - hx of, last migraine over 10 yrs ago, Hx Nerve Disease - pain in feet - DM or inflammatory arthritis, Other Neuro Impairments/Disorders - 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 APPENDECTOMY(BURST APPENDIX WITH FOLLOW UP THAT CONTAMINATED PERITONIUM) . cardiac cath 2015. right wrist cyst removed . left inguinal hernia repair 2017. Hx Anesthesia Reactions: No - Immunization History Date of Tetanus Vaccine: utd Date of Influenza Vaccine: none Infectious Disease History: No Infectious Disease History: Reports: Hx Shingles, History Other Infectious Disease - Meningitis Denies: Traveled Outside the [place] in Last 30 Days - Family History Known Family History: Positive: Cardiac Disease - Social History Alcohol Use: None Alcohol Amount: Quit 2005 Hx Substance Use: No Substance Use Type: Reports: None Substance Use Comment - Amount & Last Used: OXYCODONE Hx Tobacco Use: Yes - not currently; quit 3 years ago Smoking Status (MU): Former Smoker Type: Cigarettes Amount Used/How Often: smoked for 3-35 years- 1-2 ppd Length of Time of Smoking/Using Tobacco: 35 yrs Have You Smoked in the Last Year: No Review of Systems Constitutional: Other - Weight gain Respiratory: Other - Swelling in legs Positive: Shortness Of Breath - Worse when lying down Genitourinary: Negative - Change in urination after change in Lasix dosage Musculoskeletal: Other - Leg aching All Other Systems Reviewed And Are Negative: Yes Physical Exam - Summary Physical Exam Summary: Appearance: The patient is well-nourished in no acute distress and in no acute pain. Skin: The skin is warm and dry and skin color reflects adequate perfusion. HEENT: The head is normocephalic and atraumatic. The pupils are equal and reactive. The conjunctivae are clear and without drainage. Nares are patent and without drainage. Mouth reveals moist mucous membranes and the throat is without erythema and exudate. The external ears are intact. The ear canals are patent and without drainage. The tympanic membranes are intact. Neck: The neck is supple with full range of motion and non-tender. There are no carotid bruits. There is no neck vein distension. Respiratory: Chest is non-tender. Lungs are clear to auscultation and breath sounds are symmetrical and equal. Cardiovascular: 1-2+ pitting edema in bilateral lower extremities. Soft rolling systolic ejection murmur Abdomen: The abdomen is soft and non-tender. There are normal bowel sounds heard in all four quadrants and there is no organomegaly palpated. Musculoskeletal: There is no back tenderness noted. Extremities are non-tender with full range of motion. There is good capillary refill. There is no peripheral edema or calf tenderness elicited. Neurological: Patient is alert and oriented to person, place and time. The patient has symmetrical motor strength in all four extremities. Cranial nerves are grossly intact. Deep tendon reflexes are symmetrical and equal in all four extremities. Psychiatric: The patient has an appropriate affect and does not exhibit any anxiety or depression. Triage Information Reviewed: Yes Vital Signs On Initial Exam: Initial Vitals Temp Pulse Resp BP Pulse Ox 98.3 F 90 20 136/66 96 12/28/18 14:19 12/28/18 14:19 12/28/18 14:19 12/28/18 14:19 12/28/18 14:19 Vital Signs Reviewed: Yes Diagnostics - Vital Signs Vital Signs Temp Pulse Resp BP Pulse Ox 12/28/18 14:19 98.3 F 90 20 136/66 96 - Laboratory Result Diagrams: 12/28/18 16:12/28/18 16:19 Lab Statement: Any lab studies that have been ordered have been reviewed, and results considered in the medical decision making process. - Radiology CXR Radiology Interpretation Completed By: Radiologist Summary of Radiographic Findings: No active cardiopulmonary disease. Dr. Boyer has reviewed this radiology report. - EKG 1556 Cardiac Rate: NL - 76 BPM EKG Rhythm: Sinus Rhythm ST Segment: Normal Ectopy: None Summary of EKG Findings: Normal sinus rhythm at 76 BPM, normal ST, no ectopy, no STEMI Re-Evaluation - Re-Evaluation First Eval Re-Evaluation Time: 18:15 Comment: Discussed results with patient. Pt will be discharged home with dx of peripheral edema and dyspnea and instructions to follow-up with PCP. Patient understands and agrees with this plan. Disposition - Course Course Of Treatment: Mr. Berry has had peripheral edema for some unknown amount of time. Lately he has been complaining of shortness of breath especially while lying down or with exertion. He's been getting Lasix gradually increased and has been referred to see Dr. Villa of cardiology. He comes in concerned that he is filling up with fluid in his lungs. Clinically he did not have signs of congestive heart failure and a chest x-ray and BNP were normal. He was nontoxic in appearance with stable vitals and I recommended that he follow- up with his PCP. A d-dimer was negative and he also has a history of COPD although he is certainly not in any distress at this time. - Diagnoses Provider Diagnoses: Peripheral edema, Dyspnea Discharge - Sign-Out/Discharge Documenting (check all that apply): Patient Departure - Discharge Patient Received Moderate/Deep Sedation with Procedure: No - Discharge Plan Condition: Stable Disposition: HOME Patient Education Materials: Dyspnea (ED), Edema (ED) Referrals: Enrique Shrestha MD [Primary Care Provider] - 3 Days Additional Instructions: Follow up with your primary care provider in 2-3 days. RETURN TO THE ER FOR WORSENING OR CHANGING SYMPTOMS. - Billing Disposition and Condition Condition: STABLE Disposition: Home - Attestation Statements Document Initiated by Taranibe: Yes Documenting Scribe: Richmond Nazario Provider For Whom Hua is Documenting (Include Credential): Erik Boyer MD Scribe Attestation: I, Richmond Nazario, scribed for Erik Boyer MD on 12/28/18 at 1858. Scribe Documentation Reviewed: Yes Provider Attestation: The documentation as recorded by the Richmond rosas accurately reflects the service I personally performed and the decisions made by me, Erik Boyer MD Status of Scribe Document: Viewed
[2018-12-28 16:35] LABS: ABS Eosinophils 0.2 10^3/ul (0-0.6); ABS Lymphocytes 1.5 10^3/ul (1.0-4.8); ABS Monocytes 0.9 10^3/ul (0-0.8); ABS Neutrophils 3.3 10^3/ul (1.5-7.7); Eosinophil % 2.8 %; Hematocrit 38 % (42-52); Lymphocyte % 25.4 %; Mean Corpuscular HGB Conc 35 g/dL (31-36); Mean Corpuscular Hemoglobin 32 pg (27-31); Mean Corpuscular Volume 93 fL (80-94); Mean Platelet Volume 7.9 fL (7.4-10.4); Platelet Count 116 10^3/uL (150-450); Red Blood Count 4.07 10^6 /uL (4.18-5.48); Red Cell Distribution Width 13 % (10-15); White Blood Count 5.9 10^3/uL (3.5-10.8)
[2018-12-28 16:42] LABS: INR 1.04 (0.82-1.09)
[2018-12-28 16:54] LABS: Albumin/Globulin Ratio 1.3 (1-3); BUN/Creatinine Ratio 22.5 (8-20); C Reactive Protein 4.54 mg/L (<8.01); Calcium 9.8 mg/dL (8.6-10.3); EGFR African American 92.4 (>60); EGFR Non-African American 76.4 (>60); Potassium 3.9 mmol/L (3.5-5.0); Total Bilirubin 0.5 mg/dL (0.2-1.0)
[2018-12-28 18:05] VITALS: BP 138/67
== END 2018-12-28 18:40 | disposition home or self-care (01) ==
LOC: ED 14:15
DX: R60.0 Localized edema (principal); R06.00 Dyspnea, unspecified; E11.9 Type 2 diabetes mellitus without complications; I50.9 Heart failure, unspecified; I11.0 Hypertensive heart disease with heart failure; J44.9 Chronic obstructive pulmonary disease, unspecified; J45.909 Unspecified asthma, uncomplicated; Z87.891 Personal history of nicotine dependence
CPT/HCPCS: 36415; 71046; 80053; 83605; 83880; 84484; 85025; 85379; 85610; 86140; 87040; 93005; 99284

== ENCOUNTER 2019-09-22 05:35 | Inpatient (IN) | payer MEDICARE, MEDICAID ==
[~2019-09-22 05:35] MED LIST changes: -Buffered Lidocaine 0.9% SYRIN* 5 ML/SYR SYRINGE INTRADERM ONE; +Buffered Lidocaine 1% SYRIN* 1 ML/SYRINGE INTRADERM ONE; -Famotidine IV* 10 MG/ML 2 ML (20 mg) IV ONE
--- OUTSIDE RECORDS SUMMARY | 2019-09-22 05:39 | XMS REPORT | Continuity of Care Document ---
:1965 External Reference #:[id number] Author Name Enrique Shrestha MD Address [address] [place] [id number] Care Team Providers Name Role Phone Shubham Ruggiero MD - Neurology Care Team Information Cinder Pit Worker Shubham Cuevas - Neurological Surgery Care Team Information Cinder Pit Worker Malcolm Dumont MD - Cardiovascular Care Team Information Cinder Pit Worker [phone] Disease Donato Palomo - Surgery Care Team Information Cinder Pit Worker [phone] Problems Active Problems Provider Date Essential hypertension Enrique Shrestha MD Onset: 04/04/2015 Obesity Enrique Shrestha MD Onset: 04/04/2015 Erectile dysfunction due to general medical Enrique Shrestha MD Onset: 04/04 condition Gastroesophageal reflux disease Enrique Shrestha MD Onset: 05/04/2015 Note: Had a EGD in 2014, records from [facility] Dyspnea on exertion Enrique Shrestha MD Onset: 06/06/2016 Social History Type Date Description Comments Sex Unknown Tobacco Use Start: Unknown End: Former Cigarette Smoker Unknown ETOH Use Has consumed alcohol in the past Recreational Drug Use Never Used Drugs Tobacco Use Start: Unknown End: Patient is a former smoker Unknown Allergies, Adverse Reactions, Alerts Description No Known Drug Allergies Medications Active Medications SIG Qnty Indications Ordering Date Provider Eugenia Sanches take 1 capsule by 60caps R05 Enrique 08/28/2019 mouth 3 times per MD [place] 100mg Capsules day as needed for cough Diltiazem HCL take 1 tablet by 60tabs Enrique 08/28/2019 60mg mouth twice a day MD [place] Tablets Bupropion take one tablet by 60tabs Enrique 08/28/2019 Hydrochloride ER mouth twice a day MD [place] (SR) 150mg Tablets ER 12HR Montelukast Sodium Take 1 Tablet By 90Tablet Enrique 07/26/2019 Mouth Daily In The MD [place] 10mg Tablets Evening For Asthma Dulcolax 1 by mouth every day 30tabs K59.09 Enrique 07/20/2019 5mg MD [place] Tablets DR Ansari 1/2 ml 2ml E11.65 Enrique 06/15/2019 subcutaneously every MD [place] 0.75mg/0.5ML week Solution Pen-Inject Lactulose 30 milliliters by 473ml K59.09 Enrique 06/15/2019 10GM/15ML mouth twice a day MD [place] Solution until stooling normally. Fluticasone Inhale 2 Sprays Into 48ml Enrique 05/26/2019 Propionate Nostril Daily In MD [place] Each Nostril 50mcg/Act Suspension Torsemide 1 by mouth every day 30tabs Enrique 05/20/2019 20mg MD [place] Tablets Lancet Device use as directed to 100units Enrique 05/13/2019 [facility] [place] test blood sugar MD [place] twice daily and as needed. dx code: e11.65 Glipizide Take 1 Tablet By 180Tablet Enrique 05/05/2019 5mg Mouth Every Day With MD [place] Tablets Breakfast For 1 Week, Then Increase To 1 Tablet Twice A Day True Metrix Blood Test 3 Times Daily 100Strip Enrique 05/05/2019 Glucosetest Strips MD [place] Strips Glipizide Take 1 Tablet By 180tabs Enrique 05/05/2019 5mg Mouth Every Day With MD [place] Tablets Breakfast For 1 Week, Then Increase To 1 Tablet Twice A Day True Metrix Blood Use to test blood 100Strip Enrique 05/05/2019 Glucosetest Strips sugar once daily MD [place] Strips Triamterene/Hydroch Take 1 Capsule By 90Caps Enrique 04/27/2019 lorothiazide Mouth Every Day MD [place] 37.5-25mg Capsules Triamterene/Hydroch Take 1 Capsule By 90Caps Enrique 04/27/2019 lorothiazide Mouth Every Day MD [place] 37.5-25mg Capsules Diltiazem HCL ER Take 1 Capsule By 180Caps Enrique 04/27/2019 Mouth Twice A Day MD [place] 60mg Caps ER 12HR Stelara S22.32xA Enrique 03/12/2019 MD [place] Rhinocort Allergy inhale 2 sprays into 8.430ml J01.90 Enrique 02/02/2019 nostril daily in MD [place] 32mcg/Act each nostril for Suspension nose inflammation Ipratropium inhale one vial 180ml J44.9 Enrique 01/01/2019 Earth/Albuterol using nebulizer four MD [place] Sulfate times daily if needed for breathing 0.5-2.5(3)mg/3ML Solution Nebulizer, Home 1 use to inhale 1units J44.9 Shawnti R. 01/01/2019 medications as ADRIANA Zee directed dx code: j44.9 Lasix 1.5 by mouth every 60tabs I50.30 Enrique 12/26/2018 40mg Tablets day MD [place] Klor-Con 10 1-2 by mouth every 180tabs M79.18 Enrique 12/26/2018 10Meq day as directed MD [place] Tablets ER Incruse Ellipta inhale one puff by 60units Enrique 12/02/2018 mouth every day for MD [place] 62.5mcg/Inh Aerosol chronic obstructive lung disease Lasix 1 by mouth every day 5tabs Enrique 12/01/2018 20mg Tablets MD [place] Hearing Evaluation Enrique 09/08/2018 MD [place] [facility] Fiber Laxative take 1 tablet by 90tabs Enrique 08/07/2018 mouth 4 times per MD [place] 625mg Tablets day as needed for constipation Bisacodyl Ec 1 tab by mouth as 30tabs K59.00 Enrique 12/23/2017 5mg needed for MD [place] Tablets DR constipation Magnesium 1 tab by mouth every 90tabs G47.00 Enrique 10/23/2017 250mg day at bedtime MD [place] Tablets Lisinopril take 1 tablet by 60tabs I10 Enrique 10/23/2017 20mg mouth every day MD [place] Tablets Lancets 30G use to check sugars 100units E11.65 Enrique 10/09/2017 30G daily dx: e11.65 MD [place] Mis True Metrix Meter use meter the 1units Enrique 10/03/2017 insurance will MD [place] w/Device Kit cover. dx code e11.9 Blood Pressure Cuff auto-inflating 1units Enrique 10/03/2017 MD [place] Misc Metformin HCL ER take 3 tablets every 270tabs Enrique 10/24/2016 day MD [place] 500mg Tablets ER 24HR Spiriva Respimat inhale 2 puffs by 4gm Enrique 01/19/2016 mouth daily for MD [place] 2.5mcg/Act Aerosol chronic obstructive lung disease Gabapentin 2 tab by mouth three 180caps Enrique 09/26/2015 300mg times a day MD [place] Capsules Ventolin HFA 1-2 puffs four times 2units J44.9 Enrique 09/16/2015 a day as needed MD [place] 108(90Base) mcg/Act Aerosol Senna take 2 tablets by 60tabs M54.5 Enrique 08/29/2015 8.6mg Tablets mouth every day MD [place] Spacer, Pediatric R06.02 Enrique 04/04/2015 MD [place] Morphine Sulfate 1 tab by mouth twice Unknown a day 15mg Tablets Oxycodone-Acetamino 1 tab by mouth four Unknown phen times a day 10-325mg Tablets Sulfasalazine 1 by mouth 2x a day. Unknown 500mg Tablets Docusate Sodium 1 by mouth daily Unknown 100mg Capsules Folic Acid Unknown Tablets Clobetasol apply 1-2 times 120gm Enrique Propionate daily to psoriasis MD [place] 0.05% as needed Cream Diclofenac Sodium Martir Oliveros 75mg Tablets DR History Medications Bupropion Take 1 Tablet 90Tablet Enrique Marjorieks, 07/26/2019 - Hydrochloride ER (XL) By Mouth Every 08/28/2019 Day 300mg Tablets ER 24HR Bydureon inject one pen 4units E11.65 Enrique Shrestha, 05/20/2019 - 2mg Pen (2 mg) weekly 07/20/2019 for type 2 diabetes. Diltiazem HCL ER Take 1 Capsule 180Caps Enrique Shrestha, 04/27/2019 - 60mg By Mouth Twice 08/28/2019 Caps ER 12HR A Day Diltiazem HCL ER 1 by mouth bid 60caps Enrique Shrestha, 03/30/2019 - 60mg 04/26/2019 Caps ER 12HR Medications Administered in Office Medication SIG Qnty Indications Ordering Provider Date Injection Ketorolac Tromethamine Enrique Shrestha MD 06/13/2018 Per 15 MG (Toradol) Injection Injection Ketorolac Sharifaamine Enrique Shrestha MD 09/08/2015 Per 15 MG (Toradol) Injection Immunizations CPT Code Status Date Vaccine Lot # [id number] Given 12/24/2016 Hep B Vaccine Adult, 3 Dose age >20 yrs [id number] Given 11/08/2016 Pneumovax 23 (PPSV23) 65+ years or high risk 2 to [id number] 64 year old [id number] Refused 06/13/2018 Influenza Virus Vaccine, Quadrivalent, 3 Yr > Quad , Preserv Free [id number] Refused 12/23/2017 Influenza Virus Vaccine, Quadrivalent, 3 Yr > Quad , Preserv Free [id number] Refused 10/04/2016 Influenza Virus Vaccine, 3 Yrs And Above Vital Signs Date Vital Result Comment 08/28/2019 1:29pm Weight 304.00 lb Weight 137.894 kg BP Systolic 130 mmHg BP Diastolic 72 mmHg Heart Rate 72 /min Body Temperature 98.1 F Respiratory Rate 16 /min 07/20/2019 11:17am Weight 302.00 lb Weight 136.987 kg BP Systolic 130 mmHg BP Diastolic 70 mmHg Heart Rate 84 /min Body Temperature 98.3 F Respiratory Rate 16 /min Results Test Acquired Date Facility Test Result H/L Range Note Laboratory test 07/20/2019 In House Lab Hemoglobin A1c 7.7 finding (607)- - Poct Laboratory test 05/20/2019 In House Lab Hemoglobin A1c 9.2 finding (607)- - Poct Urine 03/12/2019 [facility] Laboratory Ur Microalbumin < 15.0 1 Microalbumin [phone] (mg/L) mg/L Random Urine Creatinine 62.06 mg/dL Urine Microalbumin/Creatinine TNP <31 2 1 [id number] Unable to calculate due to low microalbumin Procedures Description No Information Available Medical Devices Description No Information Available Encounters Type Date Location Provider Dx Diagnosis Office Visit 07/20/2019 Main Office Enrique Shrestha, K59.09 Other constipation 11:30a E11.65 Type 2 diabetes mellitus with hyperglycemia Office Visit 06/15/2019 11:30a Main Office Enrique Shrestha E11.65 Type 2 diabetes MD mellitus with hyperglycemia K59.09 Other constipation K42.9 Umbilical hernia without obstruction or gangrene L91.8 Other hypertrophic disorders of the skin Office Visit 05/20/2019 11:30a Main Office Enrique Shrestha E11.65 Type 2 diabetes MD mellitus with hyperglycemia Office Visit 05/13/2019 10:30a Main Office Enrique Shrestha D64.9 Anemia , unspecified L91.8 Other hypertrophic disorders of the skin Office Visit 03/12/2019 [facility] E11.65 Type 2 diabetes 11:00a MD [place] mellitus with hyperglycemia Assessments Date Code Description Provider 08/28/2019 R05 Cough Enrique Shrestha MD 07/20/2019 K59.09 Other constipation Enrique Shrestha MD 07/20/2019 E11.65 Type 2 diabetes mellitus with hyperglycemia Enrique Shrestha MD 06/15/2019 E11.65 Type 2 diabetes mellitus with hyperglycemia Enrique Shrestha MD 06/15/2019 K59.09 Other constipation Enrique Shrestha MD 06/15/2019 K42.9 Umbilical hernia without obstruction or Enrique Shrestha MD gangrene 06/15/2019 L91.8 Other hypertrophic disorders of the skin Enrique Shrestha MD 05/20/2019 E11.65 Type 2 diabetes mellitus with hyperglycemia Enrique Shrestha MD 05/13/2019 D64.9 Anemia, unspecified Enrique Shrestha MD 05/13/2019 L91.8 Other hypertrophic disorders of the skin Enrique Shrestha MD 03/12/2019 E11.65 Type 2 diabetes mellitus with hyperglycemia Enrique Shrestha MD Plan of Treatment Future Appointment(s):09/30/2019 2:15 pm - Enrique Shrestha MD at Main [facility]208/28/2019 - Enrique Shrestha MDR05 CoughNew Medication:Tessalon Perles 100 mg - take 1 capsule by mouth 3 times per day as needed for coughComments: Upper respiratory infection. No historical or physical evidence of serious or bacterial infection.Recommended continued use of OTC meds for symptom control, hydration, rest, and discussed alarm symptoms. Functional Status Description No Information Available Mental Status Description No Information Available Referrals Description No Information Available
--- OUTSIDE RECORDS SUMMARY | 2019-09-22 05:39 | XMS REPORT | Continuity of Care Document ---
:1965 External Reference #:[id number] Author Name Drake Helm DO FAC (transmitted by agent of provider Emily Pike) Address [address] [place] [address] Care Team Providers Name Role Phone Enrique Shrestha MD - Family Care Team Information Independent Driver Medicine Problems Active Problems Provider Date Spinal stenosis of lumbar region Shubham Cuevas M.D. Onset: 09/02/2015 Low back pain Shubham Cuevas M.D. Onset: 09/26/2015 Neck pain Shubham Cuevas M.D. Onset: 01/20/2016 Pain in thoracic spine Shubham Cuevas M.D. Onset: 01/20/2016 Dyssomnia Oliva Stoll DNP, RN, BILLING AUD[employer]OR[employer] Onset: 01/23/2016 Hypersomnia Oliva Stoll DNP, RN, BILLING AUDITOR[employer] Onset: 01/23/2016 Snoring Oliva Stoll DNP RN, BILLING AUDITOR-[employer] Onset: 01/23/2016 Morbid obesity Oliva Stoll DNP, RN, BILLING AUDITOR-[employer] Onset: 01/23/2016 Obesity Mesha Crump MD Onset: 08/28/2016 Obstructive sleep apnea syndrome Oliva Stoll DNP RN, BILLING AUDITOR-[employer] Onset: 09/2016 Social History Type Date Description Comments Sex Unknown Tobacco Use Start: Unknown Former Cigarette End: Unknown Smoker Cigarette Use Quit - Age 49 Smoking Status Reviewed: 07/29/19 Former Cigarette Smoker ETOH Use Denies alcohol use Used to be a heavy drinker. Quit 2006 Recreational Drug Use Denies Drug Use Tobacco Use Start: Unknown Patient is a former End: Unknown smoker Exercise Type/Frequency Exercises sporadically Yard work. 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 Prefill Syringe Torsemide 1 by mouth every 90tabs R60.0 Drake S. 01/06/2019 20mg day as needed Helm, FACC Tablets Diclofenac Sodium Take One Tablet By 30tabs M54.5 Martir Oliveros, 2018 Mouth Twice Daily M.D. 75mg Tablets DR as Needed For Pain. Avoid Other NSAIDS. Folic Acid Take 1 Tablet By 90tabs Martir Domo, 10/23/2017 1mg Mouth Every Day M.D. Tablets Biotene PBF Dry apply twice daily 90units R68.2 Martir Oliveros, 07/23/2017 Mouth Mouthwash for dry mouth M.D. Liquid Sulfasalazine Take 2 [facility]2017 500mg Morning And 2 In M.D. Tablets The Evening Klor-Con M10 1 tablet po twice Unknown 10Meq daily Tablets ER Diltiazem HCL 1 cap po twice Unknown 60mg daily ( medication Tablets change decrease 6 months ago) Lactulose 30ml po twice daily Unknown 10GM/15ML until stool is Solution normal Trulicity 1/2 ml subcutaneous Unknown every week 0.75mg/0.5ML Solution Pen-Inject Incruse Ellipta inhale one puff by Unknown mouth every day 62.5mcg/Inh Aerosol Gabapentin take one tablet by Unknown 600mg mouth four times a Tablets day Lisinopril 1 by mouth every Unknown 20mg day Tablets Magnesium 1 by mouth every Unknown 250mg day Tablets Melatonin prn Unknown 1mg Capsules Fiber Laxative 1 po bid Unknown 0.52gm Capsules Docusate Sodium 1 po bid Unknown 100mg Capsules Glipizide prn per PCP Unknown 5mg Tablets Metformin HCL ER 1 by mouth 3x a day Unknown 500mg Tablets Senna Laxative 1 po bid Unknown 8.6mg Tablets Fluticasone 2 sprays each Unknown Propionate nostril daily 50mcg/Act Suspension Montelukast Sodium once a day Heetderks, Enrique Hartmann MD 10mg Tablets Morphine Sulfate bid Unknown 15mg Tablets Triamterene/Hydrochl 1 qd Heetderfernando, orothiazide Enrique Hartmann MD 37.5-25mg Capsules Ventolin HFA prn Heetderks, Enrique Hartmann MD 108(90Base) mcg/Act Aerosol Oxycodone-Acetaminop Take 1 Tablet By Unknown hen Mouth 4 Times A Day 10-325mg Tablets Bupropion HCL ER 1 qd Heetderks, (XL) Enrique Hartmann MD 300mg Tablets ER 24HR Medications Administered in Office Medication SIG Qnty Indications Ordering Provider Date No Injection Martir Oliveros M.D. 07/23/2019 Injection No Injection Martir Oliveros M.D. 04/22/2019 Injection Immunizations Description No Information Available Vital Signs Date Vital Result Comment 07/29/2019 4:20pm Height 68.5 inches 5'8.50" Weight 303.00 lb with shoes Heart Rate 88 /min BP Systolic Sitting 94 mmHg Lue lg cuff BP Diastolic Sitting 70 mmHg Lue lg cuff BP Systolic Standing 110 mmHg Lue lg cuff BP Diastolic Standing 70 mmHg Lue lg cuff Respiratory Rate 16 /min BMI (Body Mass Index) 45.4 kg/m2 07/23/2019 11:22am Height 68.5 inches 5'8.50" Weight 304.00 lb Heart Rate 78 /min BP Systolic 122 mmHg BP Diastolic 68 mmHg Pain Level 5 O2 % BldC Oximetry 98 % BMI (Body Mass Index) 45.5 kg/m2 Results Test Acquired Date Facility Test Result H/L Range Note Laboratory test 07/21/2019 [facility] Erythrocyte Sed 18 mm/Hr Normal 0-19 [address] [place] [address] [phone] C Reactive Protein 3.70 mg/L Normal <8.01 2 CBC Auto 07/21/2019 [facility] White Blood 6.4 10^3/uL Normal 3.5-10.[address] [place] [address] [phone] Red Blood Count 4.30 10^6/uL Normal 4.18-5.48 Hemoglobin 13.6 g/dL Low 14.0-18.0 Hematocrit 39 % Low 42-52 Mean Corpuscular Volume 90 fL Normal 80-94 Mean Corpuscular Hemoglobin 32 pg High 27-31 Mean Corpuscular HGB Conc 35 g/dL Normal 31-36 Red Cell Distribution Width 14 % Normal 10-15 Platelet Count 148 10^3/uL Low 150-450 Mean Platelet Volume 7.6 fL Normal 7.4-10.4 Abs Neutrophils 4.2 10^3/uL Normal 1.5-7.7 Abs Lymphocytes 1.3 10^3/uL Normal 1.0-4.8 Abs Monocytes 0.7 10^3/uL Normal 0-0.8 Abs Eosinophils 0.1 10^3/uL Normal 0-0.6 Abs Basophils 0.0 10^3/uL Normal 0-0.2 Abs Nucleated RBC 0.0 10^3/uL Granulocyte % 66.6 % Lymphocyte % 20.0 % Monocyte % 11.0 % Eosinophil % 2.2 % Basophil % 0.2 % Nucleated Red Blood Cells % 0.0 Comp Metabolic 07/21/2019 [facility] Sodium 136 mmol/L Normal 135-[address] [place] [address] [phone] Potassium 4.5 mmol/L Normal 3.5-5.0 Chloride 102 mmol/L Normal 101-111 Co2 Carbon Dioxide 26 mmol/L Normal 22-32 Anion Gap 8 mmol/L Normal 2-11 Glucose 205 mg/dL High 70-100 Blood Urea Nitrogen 14 mg/dL Normal 6-24 Creatinine 1.06 mg/dL Normal 0.67-1.17 BUN/Creatinine Ratio 13.2 Normal 8-20 Calcium 9.2 mg/dL Normal 8.6-10.3 Total Protein 7.0 g/dL Normal 6.4-8.9 Albumin 4.1 g/dL Normal 3.2-5.2 Globulin 2.9 g/dL Normal 2-4 Albumin/Globulin Ratio 1.4 Normal 1-3 Total Bilirubin 0.40 mg/dL Normal 0.2-1.0 Alkaline Phosphatase 123 U/L High 34-104 Alt 23 U/L Normal 7-52 Ast 29 U/L Normal 13-39 Egfr Non- 73.1 >60 Egfr 88.4 >60 3 Laboratory test 04/20/2019 [facility] Erythrocyte Sed 36 mm/Hr High 0-19 [address] [place] [address] [phone] C Reactive Protein 5.26 mg/L Normal <8.01 5 CBC Auto 04/20/2019 [facility] White Blood 6.9 10^3/uL Normal 3.5-10.[address] [place] [address] [phone] Red Blood Count 3.74 10^6/uL Low 4.18-5.48 Hemoglobin 12.4 g/dL Low 14.0-18.0 Hematocrit 35 % Low 42-52 Mean Corpuscular Volume 94 fL Normal 80-94 Mean Corpuscular Hemoglobin 33 pg High 27-31 Mean Corpuscular HGB Conc 35 g/dL Normal 31-36 Red Cell Distribution Width 14 % Normal 10-15 Platelet Count 153 10^3/uL Normal 150-450 Mean Platelet Volume 7.7 fL Normal 7.4-10.4 Abs Neutrophils 4.2 10^3/uL Normal 1.5-7.7 Abs Lymphocytes 1.6 10^3/uL Normal 1.0-4.8 Abs Monocytes 0.9 10^3/uL High 0-0.8 Abs Eosinophils 0.2 10^3/uL Normal 0-0.6 Abs Basophils 0.0 10^3/uL Normal 0-0.2 Abs Nucleated RBC 0.0 10^3/uL Granulocyte % 60.9 % Lymphocyte % 23.5 % Monocyte % 12.5 % Eosinophil % 2.8 % Basophil % 0.3 % Nucleated Red Blood Cells % 0.0 Comp Metabolic Panel 04/20/2019 [facility] Sodium 131 mmol/L Low 135-[address] [place] [address] [phone] Potassium 4.3 mmol/L Normal 3.5-5.0 Chloride 98 mmol/L Low 101-111 Co2 Carbon Dioxide 26 mmol/L Normal 22-32 Anion Gap 7 mmol/L Normal 2-11 Glucose 365 mg/dL High 70-100 Blood Urea Nitrogen 18 mg/dL Normal 6-24 Creatinine 0.97 mg/dL Normal 0.67-1.17 BUN/Creatinine Ratio 18.6 Normal 8-20 Calcium 9.2 mg/dL Normal 8.6-10.3 Total Protein 6.5 g/dL Normal 6.4-8.9 Albumin 4.0 g/dL Normal 3.2-5.2 Globulin 2.5 g/dL Normal 2-4 Albumin/Globulin Ratio 1.6 Normal 1-3 Total Bilirubin 0.50 mg/dL Normal 0.2-1.0 Alkaline Phosphatase 112 U/L High 34-104 Alt 29 U/L Normal 7-52 Ast 31 U/L Normal 13-39 Egfr Non- 81.0 >60 Egfr 98.0 >60 6 1 Please check labs 2 days before follow up 2 Please check labs 2 days before follow up 3 Because ethnic data is not always readily [...] 15-29 5 Kidney failure <15 (or dialysis) 4 check labs 2 days before f/u 5 check labs 2 days before f/u 6 Because ethnic data is not always readily [...] 15-29 5 Kidney failure <15 (or dialysis) Procedures Date Code Description Status 05/06/2018 [id number] Diabetic Retinal Eye Exam Completed Medical Devices Description No Information Available Encounters Type Date Location Provider Dx Diagnosis Office Visit 04/22/2019 Rheumatology Martir Oliveros, L40.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 [facility] psoriasis, unspecified Z79.899 Other long-term (current) drug therapy 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 07/23/2019 Z79.899 Other long-term (current) drug Martir Oliveros M.D. 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 07/23/2019 M54.5 Low back pain Martir Oliveros M.D. 04/22/2019 L40.50 Arthropathic psoriasis, unspecified Martir Oliveros M.D. 04/22/2019 Z79.899 Other long-term (current) drug Martir Oliveros M.D. 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 04/22/2019 M54.5 Low back pain Martir Oliveros M.D. 03/31/2019 G47.33 Obstructive sleep apnea (adult) Oliva Stoll DNP, RN, (pediatric) [facility]- 03/31/2019 E66.01 Morbid (severe) obesity due to Oliva Stoll DNP, RN, excess calories [facility] 03/31/2019 Z68.42 Body mass index (BMI) 45.0-49.9, Oliva Stoll DNP, RN, adult [facility] Plan of Treatment Future Appointment(s):11/23/2019 11:00 am - Martir Oliveros M.D. at [facility]09/29/2019 11:15 am - Oliva Stoll DNP, RN, [facility]- at [facility]07/29/2019 - Drake Helm DO FACCZ01.810 Encounter for preprocedural cardiovascular examinationFollow up:PRN Functional Status Functional Condition Comment Date Status Glasses Active Mental Status Description No Information Available Referrals Description No Information Available
[2019-09-22] MEDS ORDERED: Lactated Ringers 1000 ML Bag* 1,000 ML IV SCH (06:00)
[2019-09-22] MEDS ORDERED: ceFAZolin 2 GM PREMIX in ORs 2 GM/50 ML BAG ONE (06:04)
[2019-09-22] MEDS ORDERED: ceFAZolin 1 GM ADVAN(*) 1 GM ADDV.VIAL IVPB ONE (06:04)
[2019-09-22] MEDS ORDERED: Heparin VIAL(*) 5000 UNITS/ML VIAL (FIVE THOUSAND) ONE (06:04)
[2019-09-22] MEDS ORDERED: Lidocaine 1% w EPI 1:100,000* MDV 20 ML VIAL ONE (07:11)
[2019-09-22] MEDS ORDERED: Bupivacaine 0.5%* 50 ML MDV VIAL ONE (07:11)
[2019-09-22] MEDS ORDERED: Midazolam* 1 MG/ML 2 ML VIAL (2 MG) ONE (07:23)
[2019-09-22] MEDS ORDERED: Propofol* 10 MG/ML 20 ML BTL ONE (07:23)
[2019-09-22] MEDS ORDERED: Rocuronium* 10 MG/ML VIAL ONE ×2 (07:23→08:12)
[2019-09-22] MEDS ORDERED: fentaNYL* 50 MCG/ML 2 ML VIAL (100 MCG VIAL) ONE ×4 (07:23→10:59)
[2019-09-22] MEDS ORDERED: Lidocaine 2% PF * 5 ML VIAL ONE (07:23)
[2019-09-22] MEDS ORDERED: Succinylcholine* 20 MG/ML 10 ML VIAL ONE (07:23)
[2019-09-22] MEDS ORDERED: Bupivacaine 0.25% SDV* 30 ML ONE (07:35)
[2019-09-22] MEDS ORDERED: Labetalol IV* 5 MG/ML 20 ML VIAL ONE (07:53)
[2019-09-22] MEDS ORDERED: Ondansetron INJ* 2 MG/ML VIAL ONE (07:59)
[2019-09-22] MEDS ORDERED: Dexamethasone IV* 4 MG/ML 1 ML (4 MG) ONE (07:59)
[2019-09-22] MEDS ORDERED: Ketorolac INJ* 30 MG/ML 1 ML VIAL ONE (07:59)
[2019-09-22] MEDS ORDERED: Metoclopramide IV* 5 MG/ML 2 ML VIAL ONE (07:59)
[2019-09-22] MEDS ORDERED: Naloxone* 0.4 MG/ML 1 ML VIAL IV PRN (08:32)
[2019-09-22] MEDS ORDERED: oxyCODONE TAB* 5 MG TAB PO PRN (08:32)
[2019-09-22] MEDS ORDERED: DiMENhydriNATE IV* 50 MG/ML VIAL IV PUSH PRN (08:32)
[2019-09-22] MEDS ORDERED: Acetaminophen IV 1GM/100ML * 100 ML ONE (09:12)
--- NOTE | 2019-09-22 10:28 | BRIEFOPN ---
Brief Operative/Procedure Note - Operation Details Pre-Op Diagnosis: morbid obesity Post-Op Diagnosis: same, plus cirrhotic-appearing liver Procedures: robotic sleeve gastrectomy; liver biopsy Surgeon(s)/Proceduralists: Veronica. Assist: PATRIA Adams; SAMSON Dee Anesthesia: GET Estimated Blood Loss: < 50 ml Findings: as above; also, cirrhotic-appearing liver Specimen(s)/Culture(s) Description: portion of stomach; liver biopsy Complications: none
[2019-09-22] MEDS ORDERED: HYDROmorphone INJ1* 1 MG/ML SYRINGE ONE ×2 (10:35→10:59)
[2019-09-22] MEDS ORDERED: HYDROcodone/ACET. 7.5/325 LIQ* 15 ML UDC PO PRN (10:36)
[2019-09-22] MEDS ORDERED: Ondansetron INJ* 2 MG/ML VIAL IV PRN (10:36)
[2019-09-22] MEDS ORDERED: Acetaminophen ADULT LIQ* 650 MG/20.3 ML UDC PO PRN (10:36)
[2019-09-22] MEDS ORDERED: HYDROmorphone INJ1* 1 MG/ML SYRINGE IV SLOW PU PRN ×3 (10:36→13:20)
[2019-09-22] MEDS ORDERED: diPHENhydraMINE IV* 50 MG/ML 1 ml VIAL (BENADRYL) SLOW PUSH PRN (10:36)
[2019-09-22] MEDS ORDERED: Albuterol HFA INHALER* 8 gm MDI INH PRN (10:41)
[2019-09-22] MEDS ORDERED: Fluticasone NASAL SPRAY 50MCG* 16 gm SPRAY BTL BOTH NARES PRN (10:41)
[2019-09-22] MEDS ORDERED: Ketorolac INJ* 30 MG/ML 1 ML VIAL IV SCH (11:00)
[2019-09-22] MEDS: fentaNYL* 50 MCG/ML 2 ML VIAL (100 MCG VIAL) IV PRN ×2 (11:00→11:15)
[2019-09-22] MEDS ORDERED: Metoprolol Tartrate IV* 1 MG/ML 5 ML VIAL IV SCH (11:00)
[2019-09-22] MEDS ORDERED: fentaNYL PATCH 12 MCG/HR TRANSDERM SCH (12:30)
[2019-09-22] MEDS: Lactated Ringers 1000 ML Bag* 1,000 ML IV SCH ×2 (12:37→19:03)
[2019-09-22] MEDS: Heparin VIAL(*) 5000 UNITS/ML VIAL (FIVE THOUSAND) SUBCUT SCH ×2 (13:27→21:43)
[2019-09-22] MEDS: Metoprolol Tartrate IV* 1 MG/ML 5 ML VIAL IV SCH ×2 (13:28→18:12)
[2019-09-22] MEDS: HYDROmorphone INJ1* 1 MG/ML SYRINGE IV SLOW PU PRN ×5 (13:28→21:48)
[2019-09-22] MEDS: Ketorolac INJ* 30 MG/ML 1 ML VIAL IV SCH ×2 (18:12→23:53)
[2019-09-22] MEDS: fentaNYL Patch Check Q Shift 1 NOTE FOLLOW UP SCH (19:00)
[2019-09-22] MEDS: Famotidine IV* 10 MG/ML 2 ML (20 mg) IV SLOW PU SCH (21:40)
[2019-09-23] MEDS: HYDROmorphone INJ1* 1 MG/ML SYRINGE IV SLOW PU PRN ×4 (00:04→08:03)
[2019-09-23] MEDS: Metoprolol Tartrate IV* 1 MG/ML 5 ML VIAL IV SCH ×3 (00:08→11:40)
[2019-09-23] MEDS: Lactated Ringers 1000 ML Bag* 1,000 ML IV SCH ×2 (01:39→08:12)
[2019-09-23] MEDS: Heparin VIAL(*) 5000 UNITS/ML VIAL (FIVE THOUSAND) SUBCUT SCH ×2 (06:14→16:38)
[2019-09-23] MEDS: Ketorolac INJ* 30 MG/ML 1 ML VIAL IV SCH ×2 (06:16→11:39)
[2019-09-23] MEDS: fentaNYL Patch Check Q Shift 1 NOTE FOLLOW UP SCH (07:13)
--- NOTE | 2019-09-23 07:56 | PN ---
Progress Note - Progress Note Date of Service: 09/23/19 Note: S: Reports back pain more than anything; does have chronic issues. No nausea, emesis, fever, chills. Mild abdominal pain, well controlled. Ambulating without issue. No flatus or BM yet. O: Vital Signs - 8 hr 09/22/19 09/22/19 09/22/19 23:55 23:56 23:58 Temperature 98 F Pulse Rate 84 Respiratory 20 20 20 Rate Blood Pressure 117/58 (mmHg) O2 Sat by Pulse 92 Oximetry 09/23/19 09/23/19 09/23/19 00:04 01:21 02:47 Temperature 98 F Pulse Rate 64 Respiratory 20 16 20 Rate Blood Pressure 123/50 (mmHg) O2 Sat by Pulse 96 Oximetry 09/23/19 09/23/19 09/23/19 03:16 04:34 04:36 Temperature Pulse Rate Respiratory 20 18 Rate Blood Pressure (mmHg) O2 Sat by Pulse 96 Oximetry 09/23/19 09/23/19 06:04 06:10 Temperature 99.6 F Pulse Rate 69 Respiratory 20 20 Rate Blood Pressure 122/61 (mmHg) O2 Sat by Pulse 98 Oximetry Intake and Output Last 24 Hours 09/21/19 09/22/19 09/23/19 09/24/19 06:59 06:59 06:59 06:59 Intake Total 3501 Output Total 700 Balance 2801 Weight 291 lb 12.8 oz Intake: IV Fluids 3501 LR 3501 Oral 0 Output: Urine 700 Other: Estimated Void Medium # Bowel Movements 0 # Voids 3 PEX General: Alert, in NAD or discomfort. Integumentary: No rashes or jaundice HEENT: PERRLA. Oropharynx clear. Heart: RRR Lungs: CTAB ABD: BS present. Soft, nondistended. Mild tenderness in epigastrium and surrounding the incisions, which are C/D/I. Extremities: Calves soft and nontender. Distal pulses intact bilaterally. No edema. Assessment and plan: 54 yo M s/p robotic sleeve gastrectomy, POD 1, recovering appropriately. Started on bariatric clear liquid diet. Continue ambulation, SCDs , IS. SQ heparin for DVT prophylaxis.
[2019-09-23] MEDS: Famotidine IV* 10 MG/ML 2 ML (20 mg) IV SLOW PU SCH (08:32)
[2019-09-23] MEDS ORDERED: D5W 1/2 NS KCl 20 Meq 1000 ML* 1,000 ML IV SCH (10:37)
--- NOTE | 2019-09-23 13:13 | OP ---
CC: [facility]; Enrique Shrestha MD * DATE OF OPERATION: 09/22/19 - ROOM #352 DATE OF : 65 SURGEON: Alfred Martin MD CHEMICAL LAB SUPERVISOR: SAMSON Edwards ANESTHESIOLOGIST: Jia Chowdary DO ANESTHESIA: General endotracheal. PRE-OP DIAGNOSIS: Clinically severe obesity. POST-OP DIAGNOSES: 1. Clinically severe obesity. 2. Liver cirrhosis. OPERATIVE PROCEDURE: Robotic sleeve gastrectomy, left lobe of the liver biopsy. ESTIMATED BLOOD LOSS: Minimal. IV FLUIDS: Crystalloid. SPECIMENS: Portion of the stomach and liver biopsy. DRAINS: None. COMPLICATIONS: None. COUNTS: The instrument, needle, and sponge counts were correct. DESCRIPTION OF PROCEDURE: The patient was brought to the operating room, placed on the table supine. Sequential compression devices were placed on both lower extremities. General anesthesia was administered. He was positioned and padded appropriately. He was prepped and draped in the usual sterile fashion and a time-out was performed. Local anesthetic was infiltrated into the skin and soft tissue prior to making each incision. Entry into the abdomen was through a left upper quadrant incision accommodating an 8 mm optical trocar. After accessing the peritoneal cavity, carbon dioxide was insufflated to a pressure of 12 mmHg. Under direct visualization, an 8 mm trocar was placed laterally in the left upper quadrant, and across the abdomen, a 12 mm supraumbilically towards the left upper quadrant and a 12 mm trocar in the right upper quadrant. A Montse liver retractor was placed percutaneously in the subxiphoid position to elevate the left lobe of the liver. The liver did have a nodular appearance consistent with cirrhosis. Gastric anatomy appeared normal. There were no intraperitoneal adhesions. 6 cm proximal to the pylorus, skeletonization of the greater curvature was performed with vessel sealer. Dissection proceeded proximally dividing all the short gastric vessels. Towards the fundus, where the spleen was closely adherent, a posterior approach to the short gastric vessels allowed them to be divided and the attachments to the spleen were taken down and the stomach was fully mobilized. Next, a sleeve gastrectomy was performed over a 40-[place] bougie using a series of eric. The initial firing on the stomach was with a green cartridge and subsequent firings on the stomach were with blue cartridges, and along the course of the firings, the staple lines were inspected and noted to be intact and hemostatic. At the last firing, there was incomplete division of the stomach, and therefore, the stomach was divided sharply and the most cephalad area of the staple line was oversewn with 2-0 Vicryl suture in 2 layers, the second suture imbricating the first. At this point, the transected portion of the stomach was placed into a retrieval bag, which was retrieved through the right upper quadrant port site. This had to be enlarged to accommodate the specimen. It was subsequently closed with a 0 Vicryl in an interrupted fashion to approximate the muscle and fascia in one layer. Prior to the completion of the surgery, a Leonel-Cut needle was used to take a biopsy of the left lobe of the liver and hemostasis was achieved with cautery. Hemostasis was assured. The liver retractor and ports were removed under direct visualization and carbon dioxide was released. The skin incisions were closed with 4-0 Monocryl in a subcuticular fashion and DermaFlex was applied. The patient tolerated the procedure well, was extubated uneventfully, and transferred to the recovery room in stable condition. [id number] #: [id number] MARY
--- NOTE | 2019-09-23 15:06 | DS ---
Admit date: 09/22/2019 Discharge date: 09/23/2019 Admit diagnosis: Morbid obesity Discharge diagnosis: Morbid obesity Procedure performed: robotic sleeve gastrectomy, left lobe of the liver biopsy PEX General: Alert, in NAD or discomfort. Integumentary: No rashes or jaundice. HEENT: Oropharynx clear. PERRLA. Heart: RRR, no MRG. Lungs: CTAB, no WRR. ABD: Soft, nondistended. BS present. Mild tenderness around incisions, which are C/D/I. Extremities: Calves soft and nontender. Distal pulses intact bilaterally. No edema. Labs: Borderline elevated blood glucose levels. Hospital course: Pt was admitted for the above named procedure, which was tolerated well. He was then transferred to [facility] for post op care. On POD#1 he was started on bariatric clear liquid diet, which was tolerated very well. At time of discharge, he was tolerating over 5 oz of liquids per hour without any issue, ambulating without problem, pain was under control, and no nausea. He felt ready for discharge. Instructions were given to the patient regarding diet, medications, activity, and follow up. All questions were answered. I called the pain clinic where he is a pt of and they requested we prescribe pain medication for home. His dose of liquid hydrocodone/acetaminophen that was given in hospital was continued at home. Discharged home in stable condition.
[2019-09-23 15:20] VITALS: BP 128/67
== END 2019-09-23 16:13 | disposition home or self-care (01) | DRG 621 ==
LOC: AA 05:35 → SSU 10:29
PROVIDERS: ADMIT Surgery; ATTEND Surgery
PROC: 0FB24ZX Excision of Left Lobe Liver, Percutaneous Endoscopic Approach, Diagnostic (ICD-10-PCS; 2019-09-22)
PROC: 8E0W4CZ Robotic Assisted Procedure of Trunk Region, Percutaneous Endoscopic Approach (ICD-10-PCS; 2019-09-22)
PROC: 0DB64Z3 Excision of Stomach, Percutaneous Endoscopic Approach, Vertical (ICD-10-PCS; principal; 2019-09-22 07:30)
DX: E66.01 Morbid (severe) obesity due to excess calories (principal); I10 Essential (primary) hypertension; G47.33 Obstructive sleep apnea (adult) (pediatric); G89.29 Other chronic pain; M54.9 Dorsalgia, unspecified; F41.9 Anxiety disorder, unspecified; K73.9 Chronic hepatitis, unspecified; F32.9 Major depressive disorder, single episode, unspecified; M81.0 Age-related osteoporosis without current pathological fracture; E11.65 Type 2 diabetes mellitus with hyperglycemia; L40.59 Other psoriatic arthropathy; K74.60 Unspecified cirrhosis of liver; Z68.42 Body mass index [BMI] 45.0-49.9, adult; Z87.891 Personal history of nicotine dependence; Z86.010 Personal history of colon polyps
CPT/HCPCS: 88307; 88313; A9270-GY; J0330; J0690; J1100; J1170; J1644; J1885; J2250; J2405; J2704; J2765; J3010; J3490

== ENCOUNTER 2020-07-22 06:45 | Inpatient (IN) ==
[2020-07-22] MEDS ORDERED: Albuterol HFA INHALER 8 gm MDI INH ONE (07:16)
[2020-07-22] MEDS ORDERED: Dexamethasone IV 4 MG/ML VIAL 1 ml VIAL IV SLOW PU ONE (07:17)
[2020-07-22 07:35] LABS: Albumin 3.5 g/dL (3.2-5.2); Albumin/Globulin Ratio 1.3 (1-3); BUN/Creatinine Ratio 15.1 (8-20); C Reactive Protein 31.85 mg/L (<8.01); Calcium 7.8 mg/dL (8.6-10.3); EGFR African American 135.5 (>60); Globulin 2.8 g/dL (2-4); Potassium 3.5 mmol/L (3.5-5.0); Total Protein 6.3 g/dL (6.4-8.9)
[2020-07-22 07:37] LABS: Activated Partial Thrombo Time 31.7 seconds (26.0-38.0); INR 1.28 (0.82-1.09)
[2020-07-22 07:41] LABS: Hematocrit 39 % (42-52); Hemoglobin 13.8 g/dL (14.0-18.0); Mean Corpuscular HGB Conc 35 g/dL (31-36); Mean Corpuscular Hemoglobin 33 pg (27-31); Mean Corpuscular Volume 94 fL (80-94); Red Blood Count 4.19 10^6 /uL (4.18-5.48); Red Cell Distribution Width 14 % (10-15); White Blood Count 3.5 10^3/uL (3.5-10.8)
[2020-07-22 08:16] LABS: Ferritin 172.6 ng/mL (24-336)
[2020-07-22 08:24] LABS: ABS Lymphocytes 0.6 10^3/ul (1.0-4.8); ABS Monocytes 0.4 10^3/ul (0-0.8); ABS Neutrophils 2.4 10^3/ul (1.5-7.7); Eosinophil % 0.1 %; Lymphocyte % 17.9 %; Nucleated Red Blood Cells % 0.1
[2020-07-22 08:26] LABS: Platelet Count 75 10^3/uL (150-450)
[2020-07-22] MEDS ORDERED: Calcium Polycarbophil 625mg TB PO PRN (09:31)
[2020-07-22] MEDS ORDERED: Magnesium Hydroxide LIQ 30 ML UDC PO PRN (09:35)
[2020-07-22] MEDS ORDERED: fentaNYL PATCH 12 MCG/HR 1 PATCH TRANSDERM SCH (10:00)
[2020-07-22] MEDS ORDERED: Albuterol HFA INHALER 8 gm MDI INH PRN (12:40)
[2020-07-22] MEDS: Enoxaparin 40 MG/0.4 ML SYR SUBCUT SCH (13:46)
[2020-07-22] MEDS ORDERED: Remdesivir 100 mg Vial 200 MG in NS 0.9% 250 ml 210 ML IV ONE (14:00)
[2020-07-22 18:14] LABS: Urine Appearance Clear; Urine Bilirubin Negative (Negative); Urine Blood Negative (Negative); Urine Color Amber; Urine Glucose 1+(50 mg/dL) (Negative); Urine Ketones Trace (Negative); Urine Nitrite Negative (Negative); Urine Protein 1+(30 mg/dL) (Negative); Urine Specific Gravity 1.025 (1.010-1.030); Urine Urobilinogen Positive (Negative)
[2020-07-22 18:35] LABS: Urine Bacteria Absent (Absent); Urine Red Blood Cell Absent (Absent); Urine White Blood Cell Trace(0-5/hpf) (Absent)
[2020-07-22] MEDS: fentaNYL Patch Check Q Shift NOTE FOLLOW UP SCH (19:32)
[2020-07-22] MEDS: Lactulose 30 ml UDC PO SCH ×2 (19:34→19:36)
[2020-07-22] MEDS: oxyCODONE/Acetamin 5/325 mg TAB PO PRN (19:34)
[2020-07-23] MEDS: oxyCODONE/Acetamin 5/325 mg TAB PO PRN ×4 (04:43→19:23)
[2020-07-23 05:55] LABS: EGFR African American 166.7 (>60); EGFR Non-African American 137.7 (>60); Potassium 3.7 mmol/L (3.5-5.0)
[2020-07-23 06:10] LABS: Hematocrit 39 % (42-52); White Blood Count 3.6 10^3/uL (3.5-10.8)
[2020-07-23 06:11] LABS: ABS Lymphocytes 0.8 10^3/ul (1.0-4.8); ABS Monocytes 0.4 10^3/ul (0-0.8); ABS Neutrophils 2.3 10^3/ul (1.5-7.7); Lymphocyte % 23.2 %; Mean Corpuscular HGB Conc 36 g/dL (31-36); Mean Corpuscular Hemoglobin 34 pg (27-31); Mean Corpuscular Volume 93 fL (80-94); Mean Platelet Volume 7.9 fL (7.4-10.4); Platelet Count 90 10^3/uL (150-450); Red Cell Distribution Width 14 % (10-15)
[2020-07-23] MEDS: fentaNYL Patch Check Q Shift NOTE FOLLOW UP SCH ×2 (08:16→19:24)
[2020-07-23] MEDS: Senna TAB 8.6 mg TAB PO SCH (08:29)
[2020-07-23] MEDS: Enoxaparin 40 MG/0.4 ML SYR SUBCUT SCH (08:29)
[2020-07-23] MEDS: Fluticasone NASAL SPRAY 50MCG 16 gm SPRAY BTL INTRANASAL SCH (08:30)
[2020-07-23] MEDS: Lactulose 30 ml UDC PO SCH ×2 (08:30→20:15)
[2020-07-23] MEDS: Remdesivir 100 mg Vial 100 MG in NS 0.9% 250 ml 230 ML IV SCH (08:45)
[2020-07-23] MEDS: SPIRIVA Respimat (tiotropium) 2.5 mcg/inh Inhaler INH SCH (09:16)
[2020-07-24] MEDS: oxyCODONE/Acetamin 5/325 mg TAB PO PRN ×2 (03:38→10:42)
[2020-07-24] MEDS: Senna TAB 8.6 mg TAB PO SCH (07:24)
[2020-07-24] MEDS: Enoxaparin 40 MG/0.4 ML SYR SUBCUT SCH (07:26)
[2020-07-24] MEDS: fentaNYL Patch Check Q Shift NOTE FOLLOW UP SCH (07:29)
[2020-07-24] MEDS: Lactulose 30 ml UDC PO SCH (07:30)
[2020-07-24] MEDS: Fluticasone NASAL SPRAY 50MCG 16 gm SPRAY BTL INTRANASAL SCH (07:30)
[2020-07-24 07:32] VITALS: BP 115/64
[2020-07-24] MEDS: SPIRIVA Respimat (tiotropium) 2.5 mcg/inh Inhaler INH SCH (09:40)
[2020-07-24] MEDS: Remdesivir 100 mg Vial 100 MG in NS 0.9% 250 ml 230 ML IV SCH (10:40)
== END 2020-07-24 12:45 | disposition home or self-care (01) | DRG 177 ==
LOC: ED 06:45 → MED 09:35
PROVIDERS: ADMIT Internal Medicine; ATTEND Pediatrics